=== PATIENT | female | born 1975 | race Caucasian/White ===

== ENCOUNTER 2017-04-01 12:51 | Emergency (ER) | payer MEDICARE, MEDICAID ==
[~2017-04-01] VITALS: Ht 162.6 cm; Wt 99.8 kg
[~2017-04-01 12:51] MED LIST: ALPR.5T PO; AMLO1CAP31 PO; BETA BLOCKER; CARV3.122 PO; ENAL20TA76 PO; ESCT10T PO; HYDR1TAB3 PO; HYDR25CA5 PO; LEXAPRO; MECL-124 PO; NAPR-243 PO; ONDAN4ODT PO; SULF1TAB38 PO; TRAM50TA2 PO; TRM50T PO
--- NOTE | 2017-04-01 13:18 | ED Lower Extremity ---
General Chief Complaint: Lower Extremity Stated Complaint: LT FOOT TOE INJ Nursing Triage Note: PT CO OF L 3RD TOE PAIN FOR APPROX 1 MONTH, UNKNOWN INJURY Nursing Sepsis Screen: No Definite Risk Source: patient Exam Limitations: no limitations History of Present Illness Time seen by provider: 13:05 Initial Comments This 42-year-old woman presents to emergency room with complaints of pain in the second left toe. She does not recall the injury. He was previously swollen but is no longer swollen. She states she has brain injury and sometimes does not remember events. She states she came to the emergency room at the encouragement of her because she continues to complain about the pain. She has not been taking any medication to treat the pain. Allergies and Home Medications Allergies Coded Allergies: No Known Drug Allergies (Unverified , 08/20/10) Home Medications Enalapril Maleate 20 Mg Tablet, 20 MG PO DAILY, (Reported) Escitalopram Oxalate 10 Mg Tablet, 1 EACH PO DAILY, (Reported) Trimethoprim/Sulfamethoxazole 1 Ea Tablet, 1 EA PO BID for 7 Days, Ref 0 Prescribed by: MARKEL GARCIA on 07/19/13 0130 Constitutional: no symptoms reported EENTM: no symptoms reported Respiratory: no symptoms reported Cardiovascular: no symptoms reported Gastrointestinal: no symptoms reported Genitourinary: no symptoms reported : No Musculoskeletal: see HPI Skin: no symptoms reported Psychiatric/Neurological: No Symptoms Reported Past Bswempk-Ioypue-Yldegm Hx Patient Social History Alcohol Use: Denies Use Recreational Drug Use: No Type Used: Cigarettes Recent Foreign Travel: No Contact w/Someone Who Travel: No Recent Infectious Disease Expo: No Recent Hopitalizations: Yes Immunizations Up To Date Tetanus Booster (TDap): Unknown Date of Pneumonia Vaccine: Apr 30, 2012 Surgeries HX Surgeries: Yes Surgeries: Tubal Ligation Respiratory Hx Respiratory Disorders: Yes (tobaccoism) Cardiovascular Hx Cardiac Disorders: Yes Cardiac Disorders: Hypertension Neurological Hx Neurological Disorders: Yes (BRAIN INJURY AT 8 YRS OLD) Neurological Disorders: Traumatic Brain Injury 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 System Hx 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 Disorders: No Genitourinary Hx Genitourinary Disorders: No Gastrointestinal Hx Gastrointestinal Disorders: No Musculoskeletal Hx Musculoskeletal Disorders: Yes Endocrine Hx Endocrine Disorders: Yes (DIET CONTROLLED DM) Endocrine Disorders: Diabetes, Non-Insulin dep HEENT HX ENT Disorders: No Cancer Hx Cancer: No Psychosocial Hx Psychiatric Problems: Yes (schizoaffective disorder) Behavioral Health Disorders: Anxiety, Depression Integumentary HX Skin/Integumentary Disorder: No Blood Transfusions Hx Blood Disorders: No Family Medical History Significant Family History: No Pertinent Family Hx Physical Exam Vital Signs Vital Sign - Last 12Hours 04/01/17 12:57 Temp 97.2 Pulse 108 Resp 18 B/P (MAP) 143/98 Pulse Ox 94 Capillary Refill : Less Than 3 Seconds General Appearance: WD/WN, no apparent distress HEENT: normal ENT inspection Legs: left leg non-tender, left leg normal inspection, left leg normal range of motion, left leg no evidence of injury Knees: left knee non-tender, left knee normal inspection, left knee normal range of motion, left knee no evidence of injury Ankles: left ankle non-tender, left ankle normal inspection, left ankle normal range of motion, left ankle no evidence of injury Feet: left foot non-tender, left foot normal inspection, left foot normal range of motion, left foot no evidence of injury, right foot other (mild pain with dorsiflexion of the second toe) 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 See report below: NAME: JOSHUA HERRON [facility] REC#: [id number] PT STATUS: REG ER : 1975 PHYSICIAN: SEBASTIÁN HARDEN MD ADMIT DATE: 04/01/17/ER Draft Date of Exam:04/01/17 TOE(S) EXAMINATION: Three views of the left toes. INDICATION: Left second toe pain. FINDINGS: There is no fracture, dislocation, or radiopaque foreign body. The joint alignment is satisfactory. IMPRESSION: Unremarkable exam. Dictated on workstation # [id number] Dict: 04/01/17 1321 Trans: 04/01/17 1331 [facility] [id number] Interpreted by: JAD NEGRON MD Departure Impression Impression: Primary Impression: Toe pain, left Disposition: 01 HOME, SELF-CARE Condition: Stable Departure-Patient Inst. Decision time for Depature: 13:41 Referrals: HONEY UMAÑA MD (PCP/Family) Primary Care Physician Patient Instructions: NO INSTRUCTIONS GIVEN Add. Discharge Instructions: Your x-ray showed no evidence of fractures. You may take ibuprofen up to 600 mg every 6 hours as needed for pain. Add Tylenol (acetaminophen) up to 1000 mg every 6 hours as needed for additional pain relief. If these measures do not improve your pain, follow-up with your doctor for further evaluation. Your pain could possibly be related to neuropathy caused by diabetes. All discharge instructions reviewed with patient and/or family. Voiced understanding. SEBASTIÁN HARDEN MD Apr 01, 2017 13:18
--- NOTE | 2017-04-01 13:31 | Diagnostic Imaging Report ---
EXAMINATION: Three views of the left toes. INDICATION: Left second toe pain. FINDINGS: There is no fracture, dislocation, or radiopaque foreign body. The joint alignment is satisfactory. IMPRESSION: Unremarkable exam. Dictated by: Dictated on workstation # [id number]
[2017-04-01 13:47] VITALS: BP 143/98
--- OUTSIDE RECORDS SUMMARY | 2017-04-03 14:51 | XMS REPORT ---
Author Author SKYE BELL [facility] eClinical[employer] Address Unknown Phone Unavailable Care Team Providers Care Compliance Consultant Name Role Phone SKYE BELL CP Unavailable Allergies No Known Allergies Problems Problem Type Condition Code Onset Dates Condition Status Problem Essential hypertension I10 Active Problem Type 2 diabetes mellitus with complication E11.8 Active Problem High risk sexual behavior Z72.51 Active Problem Tobacco abuse Z72.0 Active Problem Other abnormal glucose 790.29 Active Problem Depression, unspecified depression type F32.9 Active Problem History of traumatic brain injury Z87.820 Active Medications Medication Code System Code Instructions Start Date End Date Status Dosage Lopid [facility] [address]-19 600 MG Orally Twice a day May 04, 2016 1 tablet Atorvastatin Calcium [facility] [address]-72 10 MG Orally Once a day May 04, 2016 1 tablet Results No Known Results Summary Purpose eClinicalWorks Submission
--- OUTSIDE RECORDS SUMMARY | 2017-04-03 14:51 | XMS REPORT ---
Author Author MARY ANN VAZQUEZ Organization e[employer] Address Unknown Phone Unavailable Care Team Providers Care Support Services Rep Name Role Phone MARY ANN VAZQUEZ CP Unavailable Allergies, Adverse Reactions, Alerts Substance Reaction Event Type N.K.D.A. Info Not Available Non Drug Allergy Problems Problem Type Condition Code Onset Dates Condition Status Assessment Type 2 diabetes mellitus with complication E11.8 Active Assessment High risk sexual behavior Z72.51 Active Assessment Essential hypertension I10 Active Problem Essential hypertension I10 Active Problem Type 2 diabetes mellitus with complication E11.8 Active Problem High risk sexual behavior Z72.51 Active Problem Tobacco abuse Z72.0 Active Problem Other abnormal glucose 790.29 Active Problem Depression, unspecified depression type F32.9 Active Problem History of traumatic brain injury Z87.820 Active Assessment Tobacco abuse Z72.0 Active Assessment History of traumatic brain injury Z87.820 Active Assessment Depression, unspecified depression type F32.9 Active Medications Medication Code System Code Instructions Start Date End Date Status Dosage Lexapro [facility] [address]-93 10 MG Orally Once a day 1 tablet Enalapril Maleate [facility] [address]-04 10 MG Orally Once a day 1 tablet Procedures Procedure Coding System Code Date VENIPUNCT, ROUTINE* CPT-4 20488 Oct 18, 2015 Office Visit, Est Pt., Level 3 CPT-4 49656 Oct 18, 2015 No Charge CPT-4 38254 Oct 18, 2015 Vital Signs Date/Time: Oct 18, 2015 Temperature 97.2 F Weight 282.6 lbs Height 64 in BMI 48.50 Index Blood Pressure Diastolic 92 mmHg Blood Pressure Systolic 126 mmHg Cardiac Monitoring Heart Rate 88 bpm Results Name Result Date Reference Range Unit Abnormality Flag ROUTINE VENIPUNCTURE Summary Purpose eClinicalWorks Submission
--- OUTSIDE RECORDS SUMMARY | 2017-04-03 14:51 | XMS REPORT ---
Author SKYE [facility] eClinicalWorks Address Unknown Phone Unavailable Care Team Providers Care Scientist Name Role Phone SKYE BELL CP Unavailable Allergies, Adverse Reactions, Alerts Substance Reaction Event Type N.K.D.A. Info Not Available Non Drug Allergy Problems Problem Type Condition Code Onset Dates Condition Status Assessment Type 2 diabetes mellitus with complication E11.8 Active Problem Other abnormal glucose 790.29 Active Assessment Carbuncle L02.93 Active Problem High risk sexual behavior Z72.51 Active Problem Essential hypertension I10 Active Problem Mixed hyperlipidemia E78.2 Active Problem History of traumatic brain injury Z87.820 Active Problem Tobacco abuse Z72.0 Active Problem Type 2 diabetes mellitus with complication E11.8 Active Problem Depression, unspecified depression type F32.9 Active Assessment Mixed hyperlipidemia E78.2 Active Assessment Essential hypertension I10 Active Assessment History of traumatic brain injury Z87.820 Active Assessment Depression, unspecified depression type F32.9 Active Medications Medication Code System Code Instructions Start Date End Date Status Dosage Test strips NDC 0 1 test fasting daily then 2 hours after mals May 01, 2016 as directed Lopid [facility] [address]-45 600 MG Orally Twice a day May 04, 2016 1 tablet Nesina [facility] [address]-66 6.25 MG Orally Once a day 1 tablet Enalapril Maleate [facility] [address]-64 10 MG Orally Once a day 1 tablet Blood Glucose Meter NDC 0 1 subcutaneously 2 times a day May 01, 2016 test blood sugar Atorvastatin Calcium [facility] [address]-38 10 MG Orally Once a day May 04, 2016 1 tablet Bactrim DS [facility] [address]-61 800-160 MG Orally Twice a day May 15, 2016 May 25, 2016 1 tablet MetFORMIN HCl ER [facility] [address]-57 500 MG Orally Once a day May 01, 2016 2 tablet with evening meal Lexapro [facility] [address]-87 10 MG Orally Once a day 1 tablet Procedures Procedure Coding System Code Date Office Visit, Est Pt., Level 4 CPT-4 10431 May 22, 2016 [facility] VISIT ESTABLISHED PATIENT CPT-4 G0467 May 22, 2016 Vital Signs Date/Time: May 22, 2016 Cardiac Monitoring Heart Rate 92 bpm Weight 220.7 lbs Height 64 in BMI 37.88 Index Blood Pressure Diastolic 92 mmHg Blood Pressure Systolic 134 mmHg Results No Known Results Summary Purpose eClinicalWorks Submission
== END 2017-04-01 13:46 | disposition home or self-care (01) ==
LOC: EDUNIT# 12:51 → ER 12:54
DX: M79.675 Pain in left toe(s) (principal); I10 Essential (primary) hypertension; E11.9 Type 2 diabetes mellitus without complications; F25.9 Schizoaffective disorder, unspecified; F41.9 Anxiety disorder, unspecified; F17.210 Nicotine dependence, cigarettes, uncomplicated; F32.9 Major depressive disorder, single episode, unspecified; Z87.820 Personal history of traumatic brain injury
CPT/HCPCS: 73660; 99283

== ENCOUNTER 2020-09-14 13:56 | Emergency (ER) | payer MEDICAID ==
[~2020-09-14] VITALS: Ht 162 cm; Wt 106.0 kg
[2020-09-14] MEDS ORDERED: ANTACID SUSP 30 ML UDC (MYLANTA) PO ONE (14:15)
[2020-09-14] MEDS ORDERED: LIDOCAINE 2% VISCOUS 15 ML UDC PO ONE (14:15)
[2020-09-14] MEDS ORDERED: ONDANSETRON 4 MG/2 ML (SDV) Z0FRAN IVP ONE (14:15)
[2020-09-14 14:19] LABS: BASOPHILS # (AUTO) 0.1 10^3/uL (0.0-0.1); BASOPHILS % (AUTO) 1 % (0-10); EOSINOPHILS # (AUTO) 0.3 10^3/uL (0.0-0.3); EOSINOPHILS % (AUTO) 4 % (0-10); HEMATOCRIT 42 % (35-52); HEMOGLOBIN 13.9 g/dL (11.5-16.0); LYMPHOCYTES # (AUTO) 3.1 10^3/uL (1.0-4.0); LYMPHOCYTES % (AUTO) 35 % (12-44); MEAN CORPUSCULAR HEMOGLOBIN 31 pg (25-34); MEAN CORPUSCULAR HGB CONC 34 g/dL (32-36); MEAN CORPUSCULAR VOLUME 92 fL (80-99); MEAN PLATELET VOLUME 9.2 fL (9.0-12.2); MONOCYTES # (AUTO) 0.7 10^3/uL (0.0-1.0); MONOCYTES % (AUTO) 8 % (0-12); NEUTROPHILS # (AUTO) 4.5 10^3/uL (1.8-7.8); NEUTROPHILS % (AUTO) 52 % (42-75); PLATELET COUNT 271 10^3/uL (130-400); WHITE BLOOD COUNT 8.7 10^3/uL (4.3-11.0)
--- NOTE | 2020-09-14 14:27 | Diagnostic Imaging Report ---
Indication: Anterior chest pain. Findings: The lungs are clear. There is no failure, effusion or pneumothorax. Impression: No acute-appearing abnormality. Dictated by: Dictated on workstation # [id number]
--- NOTE | 2020-09-14 14:30 | ED Chest Pain ---
General Chief Complaint: Chest Pain Stated Complaint: CP Nursing Triage Note: PT TO RM 7 BY [facility] WITH CC OF STABBING CHEST PAIN WHILE SITTING IN CAR WAITING FOR AN EXERCISE CLASS. NO CP ON ARRIVAL TO ER, HX OF ANXIETY. NEG COVID SWAB FROM [facility]. Nursing Sepsis Screen: No Definite Risk Source: patient Exam Limitations: no limitations History of Present Illness Date Seen by Provider: Sep 14, 2020 Time Seen by Provider: 14:05 Initial Comments This 45-year-old woman presents to the emergency room from the [facility] walk-in clinic via EMS with complaints of central chest pain. The pain started around 12: 30 while she was in the parking lot still sitting in her vehicle. The pain was sharp and stabbing just left of the sternum. She waited in the car until the pain subsided. She then came in and checked into the walk-in clinic. She denies any associated symptoms. She has no known cardiac history. [facility] obtained an EKG and administered aspirin. EKG showed no ischemia. Patient was then sent to the emergency room via EMS. Rapid COVID-19 screen was negative at [facility]. Allergies and Home Medications Allergies Coded Allergies: No Known Drug Allergies (Unverified , 08/20/10) Home Medications Enalapril Maleate 20 Mg Tablet, 20 MG PO DAILY, (Reported) Escitalopram Oxalate 10 Mg Tablet, 1 EACH PO DAILY, (Reported) Omeprazole 20 Mg Capsule.dr, 20 MG PO DAILY Prescribed by: SEBASTIÁN BUTLER on 09/14/20 1705 Trimethoprim/Sulfamethoxazole 1 Ea Tablet, 1 EA PO BID Prescribed by: MARKEL GARCIA on 07/19/13 0130 Patient Home Medication List Home Medication List Reviewed: Yes Review of Systems Review of Systems Constitutional: no symptoms reported EENTM: No Symptoms Reported Respiratory: No Symptoms Reported Cardiovascular: See HPI Gastrointestinal: No Symptoms Reported, Other ("Heartburn") Genitourinary: No Symptoms Reported Musculoskeletal: no symptoms reported Skin: no symptoms reported Psychiatric/Neurological: No Symptoms Reported Endocrine: No Symptoms Reported Hematologic/Lymphatic: No Symptoms Reported Past Kvberwi-Xtayxv-Cdjyvu Hx Past Med/Social Hx: Reviewed Nursing Past Med/Soc Hx Patient Social History Alcohol Use: Denies Use Recreational Drug Use: No (HX OF THC YEARS AGO) Smoking Status: Former Smoker Type Used: Cigarettes Former Smoker, Quit: Oct 31, 2018 Recent Foreign Travel: No Contact w/Someone Who Travel: No Recent Infectious Disease Expo: No Recent Hopitalizations: No Physical Abuse: No Sexual Abuse: No Mistreated: No Fear: No Immunizations Up To Date Tetanus Booster (TDap): Unknown Date of Pneumonia Vaccine: Apr 30, 2012 Past Medical History Surgeries: Yes (TUBAL LIGATION, EAR SURGERY, ABSCESS LANCED TO LEFT LEG) Tubal Ligation Respiratory: Yes (HAS AN INHALER) Cardiac: Yes Hypertension Neurological: Yes (BRAIN INJURY AT 8 YRS OLD) Traumatic Brain Injury : No 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 oz. 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 Norm as Tested Skin: Normal Color, Warm/Dry Progress/Results/Core Measures Results/Orders Lab Results Laboratory Tests Test 09/14/20 14:05 09/14/20 16:40 Range/Units White Blood Count 8.7 4.3-11.0 10^3/uL Red Blood Count 4.51 3.80-5.11 10^6/uL Hemoglobin 13.9 11.5-16.0 g/dL Hematocrit 42 35-52 % Mean Corpuscular Volume 92 80-99 fL Mean Corpuscular Hemoglobin 31 25-34 pg Mean Corpuscular Hemoglobin Concent 34 32-36 g/dL Red Cell Distribution Width 12.7 10.0-14.5 % Platelet Count 271 130-400 10^3/uL Mean Platelet Volume 9.2 9.0-12.2 fL Immature Granulocyte % (Auto) 1 % Neutrophils (%) (Auto) 52 42-75 % Lymphocytes (%) (Auto) 35 12-44 % Monocytes (%) (Auto) 8 0-12 % Eosinophils (%) (Auto) 4 0-10 % Basophils (%) (Auto) 1 0-10 % Neutrophils # (Auto) 4.5 1.8-7.8 10^3/uL Lymphocytes # (Auto) 3.1 1.0-4.0 10^3/uL Monocytes # (Auto) 0.7 0.0-1.0 10^3/uL Eosinophils # (Auto) 0.3 0.0-0.3 10^3/uL Basophils # (Auto) 0.1 0.0-0.1 10^3/uL Immature Granulocyte # (Auto) 0.1 0.0-0.1 10^3/uL Prothrombin Time 13.4 12.2-14.7 SEC INR Comment 1.0 0.8-1.4 Activated Partial Thromboplast Time 25 24-35 SEC Sodium Level 139 135-145 MMOL/L Potassium Level 3.9 3.6-5.0 MMOL/L Chloride Level 102 98-107 MMOL/L Carbon Dioxide Level 26 21-32 MMOL/L Anion Gap 11 5-14 MMOL/L Blood Urea Nitrogen 11 7-18 MG/DL Creatinine 0.72 0.60-1.30 MG/DL Estimat Glomerular Filtration Rate > 60 BUN/Creatinine Ratio 15 Glucose Level 288 H 70-105 MG/DL Calcium Level 9.1 8.5-10.1 MG/DL Corrected Calcium 9.2 8.5-10.1 MG/DL Magnesium Level 1.3 L 1.6-2.4 MG/DL Total Bilirubin 0.2 0.1-1.0 MG/DL Aspartate Amino Transf (AST/SGOT) 13 5-34 U/L Alanine Aminotransferase (ALT/SGPT) 21 0-55 U/L Alkaline Phosphatase 78 40-136 U/L Myoglobin 19.1 10.0-92.0 NG/ML Troponin I < 0.028 < 0.028 <0.028 NG/ML Total Protein 6.9 6.4-8.2 GM/DL Albumin 3.9 3.2-4.5 GM/DL Lipase 47 8-78 U/L My Orders Orders - SEBASTIÁN HARDEN MD Cbc With Automated Diff (09/14/20 14:10) Magnesium (09/14/20 14:10) Chest 1 View, Ap/Pa Only (09/14/20 14:10) Ekg Tracing (09/14/20 14:10) Comprehensive Metabolic Panel (09/14/20 14:10) Myoglobin Serum (09/14/20 14:10) Protime With Inr (09/14/20 14:10) Partial Thromboplastin Time (09/14/20 14:10) O2 (09/14/20 14:10) Monitor-Rhythm Ecg Trace Only (09/14/20 14:10) Lipid Panel (09/15/20 06:00) Ed Iv/Invasive Line Start (09/14/20 14:10) Lipase (09/14/20 14:10) Troponin I (09/14/20 14:10) Ondansetron Injection (Zofran Injectio (09/14/20 14:15) Lidocaine 2% Viscous 15 Ml (Xylocaine Vi (09/14/20 14:15) Antacid Suspension (Mylanta Suspension (09/14/20 14:15) Magnesium 1 Gm/100 Ml Ivpb (Magnesium Stone (09/14/20 15:00) Troponin I (09/14/20 16:30) Medications Given in ED Current Medications Medications Dose Ordered Sig/Stephie Route Start Time Stop Time Status Last Admin Dose Admin Al Hydrox/Mg Hydrox/Simethicone 30 ml ONCE ONCE PO 09/14/20 14:15 09/14/20 14:16 DC 09/14/20 14:28 30 ML Lidocaine HCl 15 ml ONCE ONCE PO 09/14/20 14:15 09/14/20 14:16 DC 09/14/20 14:28 15 ML Magnesium Sulfate/ Dextrose 100 ml @ 100 mls/hr ONCE ONCE IV 09/14/20 15:00 09/14/20 15:59 DC 09/14/20 15:18 100 MLS/HR Ondansetron HCl 4 mg ONCE ONCE IVP 09/14/20 14:15 09/14/20 14:16 DC 09/14/20 14:28 4 MG Vital Signs/I&O 09/14/20 14:08 Temp 36.2 Pulse 95 Resp 20 B/P (MAP) 146/90 (108) O2 Delivery Room Air Blood Pressure Mean: 108 Progress Progress Note #1: Time: 14:32 Progress Note Patient was seen and examined upon arrival. She was found to have some epigastric tenderness. A GI cocktail is being administered as a diagnostic and therapeutic tool. She is denying chest pain at this time. Progress Note #2: Time: 17:21 Progress Note GI cocktail did improve her epigastric tenderness. Repeat troponin was negative and chest pain did not return. Patient was discharged outpatient follow-up. Initial ECG Impression Date: Sep 14, 2020 Initial ECG Impression Time: 14:02 Initial ECG Rate: 85 Initial ECG Rhythm: Normal Sinus Initial ECG Intervals: Normal Initial ECG Impression: Normal Comment Normal sinus rhythm with no ST elevation or depression. No abnormal intervals or axis deviation. Diagnostic Imaging Diagonstic Imaging: Xray Plain Films/CT/US/NM/MRI: chest Comments Chest x-ray viewed by me and report reviewed. See report below: NAME: JOSHUA HERRON [facility] REC#: [id number] PT STATUS: REG ER : 1975 PHYSICIAN: SEBASTIÁN HARDEN MD ADMIT DATE: 09/14/20/ER Draft Date of Exam:09/14/20 CHEST 1 VIEW, AP/PA ONLY Indication: Anterior chest pain. Findings: The lungs are clear. There is no failure, effusion or pneumothorax. Impression: No acute-appearing abnormality. Dictated on workstation # [id number] Dict: 09/14/20 3355 Departure Impression Primary Impression: Atypical chest pain Additional Impression: Epigastric pain Disposition: 01 HOME, SELF-CARE Condition: Improved Departure-Patient Inst. Decision time for Depature: 17:15 Referrals: NO,LOCAL PHYSICIAN (PCP/Family) Primary Care Physician Patient Instructions: Chest Pain, Acid Reflux (Gastroesophageal Reflux Disease) During Add. Discharge Instructions: Follow-up with your primary care provider soon as possible. It is possible your chest pain and upper abdominal pain could be caused by acid reflux or gastritis. Take an antacid medication for the next month as prescribed. Call or return to care if you have worsening symptoms or other questions or co ncerns. All discharge instructions reviewed with patient and/or family. Voiced understanding. Scripts Omeprazole (Omeprazole) 20 Mg Capsule. 20 MG PO DAILY, #30 CAP Prov: SEBASTIÁN HARDEN MD 09/14/20 Copy Copies To 1: CINTHIA HDEZ JOSHUA T MD Sep 14, 2020 14:30
[2020-09-14 14:32] LABS: PROTHROMBIN TIME PATIENT 13.4 SEC (12.2-14.7)
[2020-09-14 14:33] LABS: ALBUMIN 3.9 GM/DL (3.2-4.5); CHLORIDE 102 MMOL/L (98-107); POTASSIUM 3.9 MMOL/L (3.6-5.0); SODIUM 139 MMOL/L (135-145)
[2020-09-14 14:34] LABS: CALCIUM 9.1 MG/DL (8.5-10.1)
[2020-09-14 14:35] LABS: GLUCOSE 288 MG/DL (70-105); TOTAL PROTEIN 6.9 GM/DL (6.4-8.2)
[2020-09-14 14:36] LABS: CARBON DIOXIDE 26 MMOL/L (21-32)
[2020-09-14 14:37] LABS: BILIRUBIN,TOTAL 0.2 MG/DL (0.1-1.0)
[2020-09-14 14:39] LABS: ALKALINE PHOSPHATASE 78 U/L (40-136); CREATININE SERUM 0.72 MG/DL (0.60-1.30); GFR ESTIMATED > 60
[2020-09-14 14:40] LABS: BUN/CREATININE RATIO 15
[2020-09-14 14:42] LABS: ALANINE AMINOTRANSFERASE 21 U/L (0-55); MAGNESIUM 1.3 MG/DL (1.6-2.4)
[2020-09-14 14:43] LABS: LIPASE 47 U/L (8-78)
[2020-09-14] MEDS ORDERED: MAGNESIUM 1 GM/100 ML IVPB 100 ML IV ONE (15:00)
[2020-09-14] MEDS ORDERED: OMEP20CA18 PO (17:05)
[2020-09-14 17:26] VITALS: BP 130/88
== END 2020-09-14 17:26 | disposition home or self-care (01) ==
LOC: EDUNIT# 13:56 → ER 14:05
DX: R07.89 Other chest pain (principal); R10.13 Epigastric pain; F32.9 Major depressive disorder, single episode, unspecified; E66.9 Obesity, unspecified; I10 Essential (primary) hypertension; F41.9 Anxiety disorder, unspecified; Z87.820 Personal history of traumatic brain injury; Z87.891 Personal history of nicotine dependence; Z68.41 Body mass index [BMI] 40.0-44.9, adult; Z20.828 Contact with and (suspected) exposure to other viral communicable diseases
CPT/HCPCS: 36415; 71045; 80053; 83690; 83735; 83874; 84484; 85025; 85610; 85730; 93005; 93041

== ENCOUNTER → 2021-08-15 | Outpatient (CLI) | payer MEDICAID, OTHER ==
[~2021-08-15] MED LIST changes: +OMEP20CA18 PO
--- NOTE | 2021-08-15 11:51 | Diagnostic Imaging Report ---
HISTORY: Back pain TECHNIQUE: Supine and upright views of the thoracic and lumbar spine COMPARISON: None FINDINGS: There is mild right convex curvature of the midthoracic spine measuring 8 degrees centered at T5 on the upright view but no high-grade scoliotic curvature is identified. No height loss is seen on these views. No focal osseous lesions are identified. IMPRESSION: 1. Minimal right convex curvature of the upright midthoracic spine. Dictated by: Dictated on workstation # [id number]
== END ==
LOC: RAD 10:21
PROVIDERS: ATTEND Anesthesiology Pain Medicine
DX: Z02.71 Encounter for disability determination (principal); M43.8X4 Other specified deforming dorsopathies, thoracic region
CPT/HCPCS: 72082

== ENCOUNTER → 2022-04-05 | Outpatient (CLI) | payer MEDICAID ==
[~2022-04-05] MED LIST changes: +CATHETER FLUSH 10 ML SYR IVP PRN
[2022-04-05 09:13] VITALS: BP 128/83
--- NOTE | 2022-04-05 12:33 | NUCLEAR STRESS TEST ---
TREADMILL NUCLEAR STRESS TEST Date of procedure: 04/05/2022. Primary care provider: Nguyen Vargas MD. Admitting physician: Nguyen Vargas MD. INDICATION: Atypical chest pain and abnormal electrocardiogram. BASELINE ELECTROCARDIOGRAM: Sinus tachycardia at 102 bpm with possible old septal myocardial infarction. STRESS TEST PROCEDURE: The patient was exercised for a total of 3 minutes and 30 seconds of the standard Jason protocol achieving a maximum MET level of 4.7. The resting heart rate was 102 bpm and the peak heart rate was 162 bpm, which represents 92% of the maximum predicted heart rate. The resting blood pressure was 113/79 mmHg and the peak blood pressure was 199/101 mmHg. This represents a normal heart rate and a hypertensive blood pressure response to exercise. The test was stopped due to fatigue. There was no chest discomfort during the test. There were no arrhythmias during the test. There were no significant stress induced electrocardiogram changes. The patient exhibited poor exercise capacity for age. NUCLEAR PROCEDURE: The patient was administered 10.9 mCi of intravenous technetium 99m Tetrofosmin at rest for the rest images. The patient was subsequently administered 31.3 mCi of intravenous technetium 99 M Tetrofosmin at peak stress for the stress images. Following an appropriate wait after each injection, imaging was obtained. The images were subsequently processed and reformatted in the usual views. Gated imaging was obtained. The image quality was adequate with a mild degree of gastrointestinal and breast attenuation artifact. CT attenuation correction was used as a adjunct to standard imaging. Both the corrected and uncorrected images were reviewed for interpretation. NUCLEAR RESULTS: There was normal myocardial perfusion in all segments without evidence of infarction or ischemia. There was normal left ventricular chamber size with an end-diastolic volume of 30 mL and an end-systolic volume of 8 mL. There was no evidence of transient ischemic dilatation. The TID ratio was 1.12. There was normal wall motion in all segments with a calculated ejection fraction of 73%. IMPRESSION: 1. Normal heart rate and a hypertensive blood pressure response to exercise. 2. There was no exercise-induced chest discomfort, arrhythmias, or electrocardiogram changes during the test. 3. The patient exhibited poor exercise capacity for age at 3 minutes and 30 seconds of the Jason protocol. 4. There was normal myocardial perfusion in all segments without evidence of infarction or ischemia. 5. There was normal wall motion in all segments with a calculated ejection fraction of 73%. Certain portions of this document may have been dictated utilizing voice recognition technology. Inherent to this technology, typographical and grammatical errors may exist. As much as I am diligent to identify and correct these mistakes, some errors may remain in the document. KAYLA GASPAR JR, MD Apr 05, 2022 12:33
== END ==
LOC: CARD 08:30
PROVIDERS: ATTEND Pediatrics
DX: R07.89 Other chest pain (principal); R94.31 Abnormal electrocardiogram [ECG] [EKG]
CPT/HCPCS: 78452; 93017; A9502

== ENCOUNTER 2022-06-26 17:51 | Emergency (ER) | payer MEDICAID, MEDICARE ==
[~2022-06-26] VITALS: Ht 162.5 cm; Wt 105.2 kg
[~2022-06-26 17:51] MED LIST changes: -CATHETER FLUSH 10 ML SYR IVP PRN
[2022-06-26 18:05] LABS: BASOPHILS % (AUTO) 1 % (0-10); EOSINOPHILS # (AUTO) 0.1 10^3/uL (0.0-0.3); EOSINOPHILS % (AUTO) 1 % (0-10); HEMATOCRIT 41 % (35-52); HEMOGLOBIN 13.8 g/dL (11.5-16.0); LYMPHOCYTES # (AUTO) 2.3 10^3/uL (1.0-4.0); LYMPHOCYTES % (AUTO) 33 % (12-44); MEAN CORPUSCULAR HEMOGLOBIN 30 pg (25-34); MEAN CORPUSCULAR HGB CONC 34 g/dL (32-36); MEAN CORPUSCULAR VOLUME 89 fL (80-99); MEAN PLATELET VOLUME 9.4 fL (9.0-12.2); MONOCYTES # (AUTO) 0.6 10^3/uL (0.0-1.0); MONOCYTES % (AUTO) 9 % (0-12); NEUTROPHILS # (AUTO) 3.9 10^3/uL (1.8-7.8); NEUTROPHILS % (AUTO) 57 % (42-75); PLATELET COUNT 285 10^3/uL (130-400); WHITE BLOOD COUNT 6.9 10^3/uL (4.3-11.0)
[2022-06-26 18:18] LABS: ALBUMIN 3.9 GM/DL (3.2-4.5)
--- NOTE | 2022-06-26 18:19 | Diagnostic Imaging Report ---
PATIENT HISTORY: Chest pain. TECHNIQUE: Single frontal view of the chest. COMPARISON: 09/14/2020 FINDINGS: The lung volumes are normal. No focal consolidation is seen. No large pleural effusion or pneumothorax is seen. The cardiomediastinal silhouette is normal in size and contour. No acute osseous abnormality is seen. IMPRESSION: No acute pulmonary abnormality seen. Dictated by: Dictated on workstation # [id number]
[2022-06-26 18:20] LABS: CALCIUM 9.2 MG/DL (8.5-10.1)
[2022-06-26 18:21] LABS: PROTHROMBIN TIME PATIENT 13.9 SEC (12.2-14.7); TOTAL PROTEIN 6.6 GM/DL (6.4-8.2)
[2022-06-26 18:22] LABS: BILIRUBIN,TOTAL 0.2 MG/DL (0.1-1.0)
[2022-06-26 18:24] LABS: CREATININE SERUM 0.7 MG/DL (0.60-1.30)
[2022-06-26 18:27] LABS: MAGNESIUM 1.4 MG/DL (1.6-2.4)
--- NOTE | 2022-06-26 18:40 | ED General ---
General Chief Complaint: Chest Pain Stated Complaint: CHEST PAIN, DIZZINESS Nursing Triage Note: PT BROUGHT IN BY [facility] FROM [facility] WITH COMPLAINT OF CP AND DIZZINESS. STATES SHE HAS HAD THE DIZZINESS FOR A WHILE AND CHEST HEAVINESS STARTED THIS MORNING. Source of Information: Patient Exam Limitations: No Limitations History of Present Illness Date Seen by Provider: Jun 26, 2022 Time Seen by Provider: 17:55 Initial Comments Patient to the ER by EMS from [facility] with chief complaint of racing heart feeling like her heart was beating out of her chest and dizziness. She says when she gets up out of bed for the past few days as well as when she changes positions abruptly causes a wave of dizziness which she describes as the room spinning around like she is going to fall over but not pass out. She had this happen a couple times today. She does not have a history of heart disease but her mom had early onset coronary disease and she does have diabetes. She does not have known hypertension, hyperlipidemia nor does she smoke cigarettes. She denies recreational drugs or alcohol. She denies a history of vertigo. She had COVID-19 about 2 weeks ago and was having some off-and-on pain and pressure in her right ear. Allergies and Home Medications Allergies Coded Allergies: dapagliflozin (Verified Allergy, Unknown, 06/26/22) duloxetine (Verified Allergy, Unknown, 06/26/22) escitalopram (Verified Allergy, Unknown, 06/26/22) paroxetine (Verified Allergy, Unknown, 06/26/22) peanut (Verified Allergy, Unknown, 06/26/22) pneumococcal vaccine (Verified Allergy, Unknown, 06/26/22) Patient Home Medication List Home Medication List Reviewed: Yes Enalapril Maleate (Vasotec) 20 Mg Tablet, 20 MG PO DAILY, (Reported) Entered as Reported by: HERSON HA on 02/27/12 0939 Escitalopram Oxalate (Lexapro) 10 Mg Tablet, 1 EACH PO DAILY, (Reported) Entered as Reported by: GINNA LABOY on 07/19/13 0020 Fluticasone Propionate (Allergy Relief) 50 Mcg/Actuation Imperial.susp, 15.8 ML NS BID Prescribed by: PHILL DOBBINS on 06/26/22 1904 Meclizine HCl (Meclizine HCl) 25 Mg Tablet, 25 MG PO Q6H PRN for VERTIGO Prescribed by: PHILL DOBBINS on 06/26/22 1904 Omeprazole (Omeprazole) 20 Mg Capsule.dr, 20 MG PO DAILY Prescribed by: SEBASTIÁN BUTLER on 09/14/20 1705 Trimethoprim/Sulfamethoxazole (Bactrim Ds) 1 Ea Tablet, 1 EA PO BID Prescribed by: MARKEL GARCIA on 07/19/13 0130 Review of Systems Review of Systems Constitutional: No chills, No diaphoresis EENTM: No ear discharge, No ear pain Respiratory: No cough, No short of breath Cardiovascular: No chest pain, No edema Gastrointestinal: No abdominal pain, No constipation, No diarrhea, No nausea Genitourinary: No discharge, No dysuria Musculoskeletal: No back pain, No joint pain All Other Systems Reviewed Negative Unless Noted: Yes Past Rqendva-Szdunj-Viriql Hx Patient Social History Tobacco Use?: No Use of E-Cig and/or Vaping dev: No Substance use?: No Alcohol Use?: No Pt feels they are or have been: No Immunizations Up To Date Tetanus Booster (TDap): Unknown Past Medical History Surgeries: Yes (TUBAL LIGATION, EAR SURGERY, ABSCESS LANCED TO LEFT LEG) Tubal Ligation Respiratory: Yes (HAS AN INHALER) Cardiac: Yes Hypertension Neurological: Yes (BRAIN INJURY AT 8 YRS OLD) Traumatic Brain Injury 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 oz. 99.644355zt; 39.00 BMI Method:Stated General Appearance: No Apparent Distress, Obese Eyes: Bilateral Eye Normal Inspection, Bilateral Eye PERRL, Bilateral Eye EOMI HEENT: PERRL/EOMI, TMs Normal, Normal ENT Inspection, Pharynx Normal, Moist Mucous Membranes Neck: Full Range of Motion, Normal Inspection, Non Tender Respiratory: Lungs Clear, Normal Breath Sounds, No Accessory Muscle Use, No Respiratory Distress Cardiovascular: Regular Rate, Rhythm, No Edema, No Gallop, Normal Peripheral Pulses Gastrointestinal: Normal Bowel Sounds, Non Tender, Soft Extremity: Normal Capillary Refill, Normal Inspection, No Pedal Edema Neurologic/Psychiatric: Alert, Oriented x3, No Motor/Sensory Deficits Progress/Results/Core Measures Suspected Sepsis SIRS Temperature: Pulse: 105 Respiratory Rate: 20 Laboratory Tests 06/26/22 17:57: White Blood Count 6.9 Blood Pressure 159 /99 Mean: 119 Laboratory Tests 06/26/22 17:57: Creatinine 0.70, INR Comment 1.0, Platelet Count 285, Total Bilirubin 0.2 Results/Orders Lab Results Laboratory Tests Test 06/26/22 17:57 Range/Units White Blood Count 6.9 4.3-11.0 10^3/uL Red Blood Count 4.56 3.80-5.11 10^6/uL Hemoglobin 13.8 11.5-16.0 g/dL Hematocrit 41 35-52 % Mean Corpuscular Volume 89 80-99 fL Mean Corpuscular Hemoglobin 30 25-34 pg Mean Corpuscular Hemoglobin Concent 34 32-36 g/dL Red Cell Distribution Width 12.8 10.0-14.5 % Platelet Count 285 130-400 10^3/uL Mean Platelet Volume 9.4 9.0-12.2 fL Immature Granulocyte % (Auto) 0 % Neutrophils (%) (Auto) 57 42-75 % Lymphocytes (%) (Auto) 33 12-44 % Monocytes (%) (Auto) 9 0-12 % Eosinophils (%) (Auto) 1 0-10 % Basophils (%) (Auto) 1 0-10 % Neutrophils # (Auto) 3.9 1.8-7.8 10^3/uL Lymphocytes # (Auto) 2.3 1.0-4.0 10^3/uL Monocytes # (Auto) 0.6 0.0-1.0 10^3/uL Eosinophils # (Auto) 0.1 0.0-0.3 10^3/uL Basophils # (Auto) 0.0 0.0-0.1 10^3/uL Immature Granulocyte # (Auto) 0.0 0.0-0.1 10^3/uL Prothrombin Time 13.9 12.2-14.7 SEC INR Comment 1.0 0.8-1.4 Activated Partial Thromboplast Time 25 24-35 SEC Sodium Level 142 135-145 MMOL/L Potassium Level 4.0 3.6-5.0 MMOL/L Chloride Level 104 98-107 MMOL/L Carbon Dioxide Level 21 21-32 MMOL/L Anion Gap 17 H 5-14 MMOL/L Blood Urea Nitrogen 11 7-18 MG/DL Creatinine 0.70 0.60-1.30 MG/DL Estimat Glomerular Filtration Rate 109 BUN/Creatinine Ratio 16 Glucose Level 323 H 70-105 MG/DL Calcium Level 9.2 8.5-10.1 MG/DL Corrected Calcium 9.3 8.5-10.1 MG/DL Magnesium Level 1.4 L 1.6-2.4 MG/DL Total Bilirubin 0.2 0.1-1.0 MG/DL Aspartate Amino Transf (AST/SGOT) 16 5-34 U/L Alanine Aminotransferase (ALT/SGPT) 25 0-55 U/L Alkaline Phosphatase 81 40-136 U/L Myoglobin 21.4 10.0-92.0 NG/ML Troponin I < 0.028 <0.028 NG/ML Total Protein 6.6 6.4-8.2 GM/DL Albumin 3.9 3.2-4.5 GM/DL My Orders Orders - PHILL DOBBINS Ed Iv/Invasive Line Start (06/26/22 18:38) Ns Iv 1000 Ml (Sodium Chloride 0.9%) (06/26/22 18:45) Insulin Determir (Per Unit) (Levemir (Pe (06/26/22 18:45) Vital Signs/I&O 06/26/22 17:54 Pulse 105 Resp 20 B/P (MAP) 159/99 (119) O2 Delivery Room Air Capillary Refill : Less Than 3 Seconds Blood Pressure Mean: 119 Progress Note : Time: 18:56 Progress Note Plan to give her a liter of fluids IV to help with her tachycardia. We discussed José Miguel's maneuvers as well as we will put her on a nasal steroid for possible labyrinthitis since she recently had an infection of the virus. Finally we will provide her with some meclizine. ECG Initial ECG Impression Date: Jun 26, 2022 Initial ECG Impression Time: 18:00 Initial ECG Rate: 106 Initial ECG Rhythm: S.Tach Initial ECG Intervals: Normal Initial ECG Impression: Normal Initial ECG Comparisson: No Previous ECG Available Comment Sinus tachycardia without clinically relevant ST elevation or depression. Diagnostic Imaging Diagonstic Imaging: Xray Plain Films/CT/US/NM/MRI: chest Comments [facility] [place], [place] NAME: JOSHUA [facility]ON [facility] REC#: [id number] PT STATUS: REG ER : 1975 PHYSICIAN: SEBASTIÁN HARDEN MD ADMIT DATE: 06/26/22/ER Draft Date of Exam:06/26/22 CHEST 1 VIEW, AP/PA ONLY PATIENT HISTORY: Chest pain. TECHNIQUE: Single frontal view of the chest. COMPARISON: 09/14/2020 FINDINGS: The lung volumes are normal. No focal consolidation is seen. No large pleural effusion or pneumothorax is seen. The cardiomediastinal silhouette is normal in size and contour. No acute osseous abnormality is seen. IMPRESSION: No acute pulmonary abnormality seen. Dictated on workstation # [id number] Dict: 06/26/221817 Trans: 06/26/221817 CV [id number] Interpreted by: EMORY JAMA MD Electronically signed by: Reviewed: Reviewed by Me Departure Impression Primary Impression: Vertigo Additional Impression: Labyrinthitis of right ear Disposition: 01 HOME, SELF-CARE Condition: Stable Departure-Patient Inst. Decision time for Depature: 18:59 Referrals: NO,LOCAL PHYSICIAN (PCP/Family) Primary Care Physician Patient Instructions: Labyrinthitis, Vertigo (a Type of Dizziness) (DC) Add. Discharge Instructions: You are having vertigo which is the sensation that the room is spinning around you. This can be caused by your recent viral infection causing pressure on your middle ear as you are experiencing some pressure and pain in your right ear. Use a nasal steroid twice a day to help relieve the pressure in your middle ear. Alternatively this can be caused by a microscopic otolith stone breaking loose in your middle ear. When the stones move such as by a sudden change in position or turning of your head they can cause the sensation of movement or vertigo. You can perform the José Miguel's maneuvers as outlined in the handout every time you feel vertigo. You may also take 1 tablet of meclizine every 6 hours to help bring the sensation of vertigo down. Finally fluticasone twice daily up each nostril for 1 to 2 weeks should help open up the middle ear via the eustachian tube and allow your pressure to relie f. Antihistamine such as Zyrtec or Claritin can be helpful to relieve the itching sensations. All discharge instructions reviewed with patient and/or family. Voiced understanding. Scripts Fluticasone Propionate (Allergy Relief) 50 Mcg/Actuation Imperial.susp 15.8 ML NS BID for 14 Days, #1 SPRAY 0 Refills Prov: PHILL DOBBINS 06/26/22 Meclizine HCl (Meclizine HCl) 25 Mg Tablet 25 MG PO Q6H PRN for VERTIGO, #30 TAB 0 Refills Prov: PHILL DOBBINS 06/26/22 PHILL DOBBINS Jun 26, 2022 18:40
[2022-06-26] MEDS ORDERED: NS IV 1000 ML 1,000 ML IV SCH (18:45)
[2022-06-26] MEDS ORDERED: FLUT15.812 NS (19:04)
[2022-06-26] MEDS ORDERED: MECL-149 PO (19:04)
[2022-06-26 19:48] VITALS: BP 122/70
== END 2022-06-26 19:48 | disposition home or self-care (01) ==
LOC: EDUNIT# 17:51 → ER 17:53
DX: H83.01 Labyrinthitis, right ear (principal); E66.9 Obesity, unspecified; Z98.890 Other specified postprocedural states; Z86.16 Personal history of COVID-19; Z68.39 Body mass index [BMI] 39.0-39.9, adult
CPT/HCPCS: 36415; 71045; 80053; 83735; 83874; 84484; 85025; 85610; 85730; 93005; 93041; 96360

== ENCOUNTER 2022-09-15 15:29 | Emergency (ER) | payer MEDICAID, MEDICARE ==
[~2022-09-15] VITALS: Ht 162 cm; Wt 105.2 kg
[~2022-09-15 15:29] MED LIST changes: +FLUT15.812 NS; +MECL-149 PO
[2022-09-15] MEDS ORDERED: LACTATED RINGERS 1,000 ML IV STA (15:42)
[2022-09-15] MEDS ORDERED: FAMOTIDINE 20 MG (PEPCID) TABLET PO STA (15:42)
[2022-09-15] MEDS ORDERED: LIDOCAINE 2% VISCOUS 15 ML UDC PO ONE (15:45)
[2022-09-15] MEDS ORDERED: ANTACID SUSP 30 ML UDC (MYLANTA) PO ONE (15:45)
--- NOTE | 2022-09-15 15:49 | ED Chest Pain ---
General Chief Complaint: Chest Pain Stated Complaint: CHEST PAIN Nursing Triage Note: PT TO [facility] BY [facility] WITH C/O CP ON AND OFF ALL DAY. PT STATES SHE FELT A SHARP PAIN IN HER CHEST A FEW TIMES TODAY. Source: patient, EMS Exam Limitations: no limitations History of Present Illness Date Seen by Provider: Sep 15, 2022 Time Seen by Provider: 15:31 Initial Comments 47-year-old female with past medical history of diabetes coming in via EMS from home due to chest pain. Started last night as a tightness, has been constant since then. Has had a few seconds of sharpness that goes away almost immediately. Nothing really seems to make it better or worse. EMS reports giving her 4 baby aspirin. The patient denies having symptoms like this before. Denies any recent surgery, recent long travel, lower extremity swelling or pain, prior history of DVT or PE, does not take hormones. Otherwise denying any shortness of breath, cough, fever, abdominal pain, nausea, vomiting, diarrhea, focal weakness or numbness, headache, vision changes, or any other concerns. LMP was less than a month ago. Allergies and Home Medications Allergies Coded Allergies: dapagliflozin (Verified Allergy, Unknown, 06/26/22) duloxetine (Verified Allergy, Unknown, 06/26/22) escitalopram (Verified Allergy, Unknown, 06/26/22) paroxetine (Verified Allergy, Unknown, 06/26/22) peanut (Verified Allergy, Unknown, 06/26/22) pneumococcal vaccine (Verified Allergy, Unknown, 06/26/22) Patient Home Medication List Home Medication List Reviewed: Yes Enalapril Maleate (Vasotec) 20 Mg Tablet, 20 MG PO DAILY, (Reported) Entered as Reported by: HERSON HA on 02/27/12 0939 Escitalopram Oxalate (Lexapro) 10 Mg Tablet, 1 EACH PO DAILY, (Reported) Entered as Reported by: GINNA LABOY on 07/19/13 0020 Fluticasone Propionate (Allergy Relief) 50 Mcg/Actuation [place].susp, 15.8 ML NS BID Prescribed by: PHILL DOBBINS on 06/26/221903 Meclizine HCl (Meclizine HCl) 25 Mg Tablet, 25 MG PO Q6H PRN for VERTIGO Prescribed by: PHILL DOBBINS on 06/26/221903 Omeprazole (Omeprazole) 20 Mg Capsule.dr, 20 MG PO DAILY Prescribed by: SEBASTIÁN BUTLER on 09/14/20 1705 Trimethoprim/Sulfamethoxazole (Bactrim Ds) 1 Ea Tablet, 1 EA PO BID Prescribed by: MARKEL GARCIA on 07/19/13 0130 Review of Systems Review of Systems Constitutional: No fever EENTM: No Symptoms Reported Respiratory: No Symptoms Reported Cardiovascular: See HPI Gastrointestinal: No Symptoms Reported Genitourinary: No Symptoms Reported Musculoskeletal: no symptoms reported Skin: no symptoms reported Psychiatric/Neurological: No Symptoms Reported Endocrine: No Symptoms Reported Hematologic/Lymphatic: No Symptoms Reported All Other Systems Reviewed Negative Unless Noted: Yes Past Owybktq-Yfugji-Ujvpye Hx Patient Social History Tobacco Use?: No Use of E-Cig and/or Vaping dev: No Substance use?: No Alcohol Use?: No Pt feels they are or have been: No Immunizations Up To Date Tetanus Booster (TDap): Unknown Influenza Vaccine Up-to-Date: Yes; Up-to-Date Past Medical History Surgery/Hospitalization HX: DM, HLD, DEPRESSION, ANXIETY, HTN TUBAL Surgeries: Yes (TUBAL LIGATION, EAR SURGERY, ABSCESS LANCED TO LEFT LEG) Tubal Ligation Respiratory: Yes (HAS AN INHALER) Cardiac: Yes Hypertension Neurological: Yes (BRAIN INJURY AT 8 YRS OLD) Traumatic Brain Injury 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 oz. 99.215506oo; 40.00 BMI Method:Stated General Appearance: No Apparent Distress, WD/WN HEENT: PERRL/EOMI, Normal ENT Inspection, Pharynx Normal Neck: Full Range of Motion, Normal Inspection, Non Tender, Supple Respiratory: Chest Non Tender, Lungs Clear, Normal Breath Sounds, No Accessory Muscle Use, No Respiratory Distress Cardiovascular: Regular Rate, Rhythm, No Edema, Normal Peripheral Pulses Gastrointestinal: Normal Bowel Sounds, Non Tender, Soft; No Distended, No Guarding Extremity: Normal Capillary Refill, Normal Inspection, Normal Range of Motion, Non Tender, No Calf Tenderness, No Pedal Edema Neurologic/Psychiatric: Alert, No Motor/Sensory Deficits, Normal Mood/Affect Skin: Normal Color, Warm/Dry Lymphatic: No Adenopathy Progress/Results/Core Measures Results/Orders Lab Results Laboratory Tests Test 09/15/22 15:36 09/15/22 17:20 Range/Units White Blood Count 7.7 4.3-11.0 10^3/uL Red Blood Count 5.09 3.80-5.11 10^6/uL Hemoglobin 15.7 11.5-16.0 g/dL Hematocrit 45 35-52 % Mean Corpuscular Volume 89 80-99 fL Mean Corpuscular Hemoglobin 31 25-34 pg Mean Corpuscular Hemoglobin Concent 35 32-36 g/dL Red Cell Distribution Width 12.1 10.0-14.5 % Platelet Count 311 130-400 10^3/uL Mean Platelet Volume 9.6 9.0-12.2 fL Immature Granulocyte % (Auto) 1 % Neutrophils (%) (Auto) 55 42-75 % Lymphocytes (%) (Auto) 35 12-44 % Monocytes (%) (Auto) 8 0-12 % Eosinophils (%) (Auto) 1 0-10 % Basophils (%) (Auto) 1 0-10 % Neutrophils # (Auto) 4.3 1.8-7.8 10^3/uL Lymphocytes # (Auto) 2.7 1.0-4.0 10^3/uL Monocytes # (Auto) 0.6 0.0-1.0 10^3/uL Eosinophils # (Auto) 0.1 0.0-0.3 10^3/uL Basophils # (Auto) 0.0 0.0-0.1 10^3/uL Immature Granulocyte # (Auto) 0.0 0.0-0.1 10^3/uL Prothrombin Time 13.0 12.2-14.7 SEC INR Comment 0.9 0.8-1.4 Activated Partial Thromboplast Time 26 24-35 SEC Sodium Level 138 135-145 MMOL/L Potassium Level 4.3 3.6-5.0 MMOL/L Chloride Level 101 98-107 MMOL/L Carbon Dioxide Level 19 L 21-32 MMOL/L Anion Gap 18 H 5-14 MMOL/L Blood Urea Nitrogen 17 7-18 MG/DL Creatinine 0.76 0.60-1.30 MG/DL Estimat Glomerular Filtration Rate 98 BUN/Creatinine Ratio 22 Glucose Level 219 H 70-105 MG/DL Calcium Level 10.1 8.5-10.1 MG/DL Corrected Calcium 9.8 8.5-10.1 MG/DL Magnesium Level 1.3 L 1.6-2.4 MG/DL Total Bilirubin 0.4 0.1-1.0 MG/DL Aspartate Amino Transf (AST/SGOT) 21 5-34 U/L Alanine Aminotransferase (ALT/SGPT) 31 0-55 U/L Alkaline Phosphatase 92 40-136 U/L Troponin I < 0.028 <0.028 NG/ML B-Type Natriuretic Peptide < 10.0 <100.0 PG/ML Total Protein 7.6 6.4-8.2 GM/DL Albumin 4.4 3.2-4.5 GM/DL Lipase 50 8-78 U/L Acetaminophen Level < 10 L 10-30 UG/ML My Orders Orders - NIKKI TRUJILLO MD Ekg Tracing (09/15/22 15:32) Cbc With Automated Diff (09/15/22 15:42) Magnesium (09/15/22 15:42) Chest 1 View, Ap/Pa Only (09/15/22 15:42) Ekg Tracing (09/15/22 15:42) Comprehensive Metabolic Panel (09/15/22 15:42) Protime With Inr (09/15/22 15:42) Partial Thromboplastin Time (09/15/22 15:42) O2 (09/15/22 15:42) Monitor-Rhythm Ecg Trace Only (09/15/22 15:42) Ed Iv/Invasive Line Start (09/15/22 15:42) Lipase (09/15/22 15:42) Bnp [place] (09/15/22 15:42) Troponin I [place] (09/15/22 15:42) Lactated Ringers (Lr 1000 Ml Iv Solution (09/15/22 15:42) Lidocaine 2% Viscous 15 Ml (Xylocaine Vi (09/15/22 15:45) Famotidine Tablet (Pepcid Tablet) (09/15/22 15:42) Antacid Suspension (Mylanta Suspension (09/15/22 15:45) Acetaminophen (09/15/22 15:42) Magnesium 1 Gm/100 Ml Ivpb (Magnesium [place] (09/15/22 16:26) Troponin I [place] (09/15/22 17:05) Magnesium 1 Gm/100 Ml Ivpb (Magnesium [place] (09/15/22 17:05) Lorazepam Tablet (Ativan Tablet) (09/15/22 17:15) Ketorolac Injection (Toradol Injection) (09/15/22 17:30) Ondansetron Injection (Zofran Injectio (09/15/22 17:30) Medications Given in ED Current Medications Medications Dose Ordered Sig/Stephie Route Start Time Stop Time Status Last Admin Dose Admin Al Hydrox/Mg Hydrox/Simethicone 30 ml ONCE ONCE PO 09/15/22 15:45 09/15/22 15:47 DC 09/15/22 15:53 30 ML Ketorolac Tromethamine 15 mg ONCE ONCE IVP 09/15/22 17:30 09/15/22 17:31 DC 09/15/22 17:33 15 MG Lidocaine HCl 15 ml ONCE ONCE PO 09/15/22 15:45 09/15/22 15:47 DC 09/15/22 15:53 15 ML Lorazepam 0.5 mg ONCE ONCE PO 09/15/22 17:15 09/15/22 17:16 DC 09/15/22 17:15 0.5 MG Ondansetron HCl 4 mg ONCE ONCE IVP 09/15/22 17:30 09/15/22 17:31 DC 09/15/22 17:33 4 MG Vital Signs/I&O 09/15/22 15:33 Temp 35.6 Pulse 107 Resp 19 B/P (MAP) 188/107 (134) Blood Pressure Mean: 134 Progress Progress Note : Progress Note 47-year-old female with above history coming in due to chest pain. ABCs were intact and vitals were stable on presentation although her heart rate was just above 100. On review of the chart, her heart rate typically has been around 100 similar to where it is right now during previous visits. She had a similar episode with a negative cardiac work-up. Had a stress test done for this chest pain roughly 5 months ago which was normal as well. Otherwise low risk for a PE per [place] criteria and I have a low suspicion for this at this time. Troponin negative x2. Chest x-ray negative for acute abnormalities. EKG nonischemic. I believe the patient is stable for discharge with outpatient follow-up. She was sent home with strict return precautions Initial ECG Impression Date: Sep 15, 2022 Initial ECG Impression Time: 15:35 Initial ECG Rate: 103 Initial ECG Rhythm: S.Tach Comment Narrow QRS, normal axis, no significant ST changes or T wave abnormalities, appears almost identical to EKG from May 2020 Diagnostic Imaging Diagonstic Imaging: Xray (chest) Comments [facility], [place] NAME: JOSHUA HERRON [facility] REC#: [id number] PT STATUS: REG ER : 1975 PHYSICIAN: NIKKI TRUJILLO MD ADMIT DATE: 09/15/22/ER Draft Date of Exam:09/15/22 CHEST 1 VIEW, AP/PA ONLY INDICATION: Chest pain. COMPARISON: 06/26/2022. DISCUSSION: Single portable upright view of the chest was obtained. Normal heart size. No consolidation, pleural fluid or pneumothorax. No osseous abnormality. IMPRESSION: Negative chest. Dictated on workstation # [id number] Dict: 09/15/22 1557 Trans: 09/15/[address] [facility] [id number] Interpreted by: KAYLA COLUNGA MD Electronically signed by: Departure Impression Primary Impression: Atypical chest pain Disposition: 01 HOME, SELF-CARE Condition: Stable Departure-Patient Inst. Decision time for Depature: 17:36 Referrals: NO,LOCAL PHYSICIAN (PCP/Family) Primary Care Physician Patient Instructions: Chest Pain (DC) Add. Discharge Instructions: It does not appear like you are having a heart attack or anything more serious at this time. 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 Regan. Take Tylenol or ibuprofen as needed for headache. Work/School Note: Work Release Form Date Seen in the Emergency Department: Sep 15, 2022 Return to Work: Sep 17, 2022 Restrictions: No Restrictions NIKKI TRUJILLO MD Sep 15, 2022 15:49
[2022-09-15 16:02] LABS: BASOPHILS % (AUTO) 1 % (0-10); EOSINOPHILS # (AUTO) 0.1 10^3/uL (0.0-0.3); EOSINOPHILS % (AUTO) 1 % (0-10); HEMATOCRIT 45 % (35-52); HEMOGLOBIN 15.7 g/dL (11.5-16.0); LYMPHOCYTES # (AUTO) 2.7 10^3/uL (1.0-4.0); LYMPHOCYTES % (AUTO) 35 % (12-44); MEAN CORPUSCULAR HEMOGLOBIN 31 pg (25-34); MEAN CORPUSCULAR HGB CONC 35 g/dL (32-36); MEAN CORPUSCULAR VOLUME 89 fL (80-99); MEAN PLATELET VOLUME 9.6 fL (9.0-12.2); MONOCYTES # (AUTO) 0.6 10^3/uL (0.0-1.0); MONOCYTES % (AUTO) 8 % (0-12); NEUTROPHILS # (AUTO) 4.3 10^3/uL (1.8-7.8); NEUTROPHILS % (AUTO) 55 % (42-75); PLATELET COUNT 311 10^3/uL (130-400); WHITE BLOOD COUNT 7.7 10^3/uL (4.3-11.0)
--- NOTE | 2022-09-15 16:03 | Diagnostic Imaging Report ---
INDICATION: Chest pain. COMPARISON: 06/26/2022. DISCUSSION: Single portable upright view of the chest was obtained. Normal heart size. No consolidation, pleural fluid or pneumothorax. No osseous abnormality. IMPRESSION: Negative chest. Dictated by: Dictated on workstation # [id number]
[2022-09-15 16:04] LABS: INR 0.9 (0.8-1.4)
[2022-09-15 16:11] LABS: ALBUMIN 4.4 GM/DL (3.2-4.5)
[2022-09-15 16:12] LABS: POTASSIUM 4.3 MMOL/L (3.6-5.0)
[2022-09-15 16:13] LABS: CALCIUM 10.1 MG/DL (8.5-10.1)
[2022-09-15 16:14] LABS: TOTAL PROTEIN 7.6 GM/DL (6.4-8.2)
[2022-09-15 16:16] LABS: BILIRUBIN,TOTAL 0.4 MG/DL (0.1-1.0)
[2022-09-15 16:17] LABS: CREATININE SERUM 0.76 MG/DL (0.60-1.30)
[2022-09-15 16:20] LABS: MAGNESIUM 1.3 MG/DL (1.6-2.4)
[2022-09-15] MEDS ORDERED: MAGNESIUM 1 GM/100 ML IVPB 100 ML IV STA ×2 (16:26→17:05)
[2022-09-15 16:54] LABS: ACETAMINOPHEN < 10 UG/ML (10-30)
[2022-09-15] MEDS ORDERED: LORazepam 0.5 MG (ATIVAN) TABLET PO ONE (17:15)
[2022-09-15] MEDS ORDERED: ONDANSETRON 4 MG/2 ML (SDV) Z0FRAN IVP ONE (17:30)
[2022-09-15] MEDS ORDERED: KETOROLAC 30 MG/ML VIAL IVP ONE (17:30)
[2022-09-15 18:13] VITALS: BP 141/87
== END 2022-09-15 18:13 | disposition home or self-care (01) ==
LOC: EDUNIT# 15:29 → ER 15:31
DX: R07.89 Other chest pain (principal); Z28.310 Unvaccinated for COVID-19
CPT/HCPCS: 71045; 80053; 83690; 83735; 83880; 84484; 85025; 85610; 85730; 93005; 99283; G0480; 36415; 80329

== ENCOUNTER 2022-09-17 17:14 | Emergency (ER) | payer MEDICAID ==
[~2022-09-17] VITALS: Ht 162 cm; Wt 102.9 kg
[2022-09-17] MEDS ORDERED: ALPRAZolam 0.5 MG (XANAX) TAB PO SCH (17:45)
--- NOTE | 2022-09-17 17:48 | ED Chest Pain ---
General Chief Complaint: Chest Pain Stated Complaint: CHEST PAIN Nursing Triage Note: pt presents to ed via ems from [facility] for complaints of chest pain and dizziness. pt was seen in ed last week for similar s/s. ems reports giving 324 mg asa in route. pt rates chest pain a 1/10 and describes it as a pressure. pt also reports soa. Source: patient Exam Limitations: no limitations History of Present Illness Date Seen by Provider: Sep 17, 2022 Time Seen by Provider: 17:47 Initial Comments This is a 47 yo female who presented to the ER via POV with c/o chest pressure that started 3 hours prior to arrival. Allergies and Home Medications Allergies Coded Allergies: dapagliflozin (Verified Allergy, Unknown, 06/26/22) duloxetine (Verified Allergy, Unknown, 06/26/22) escitalopram (Verified Allergy, Unknown, 06/26/22) paroxetine (Verified Allergy, Unknown, 06/26/22) peanut (Verified Allergy, Unknown, 06/26/22) pneumococcal vaccine (Verified Allergy, Unknown, 06/26/22) Patient Home Medication List Enalapril Maleate (Vasotec) 20 Mg Tablet, 20 MG PO DAILY, (Reported) Entered as Reported by: HERSON HA on 02/27/12 0939 Escitalopram Oxalate (Lexapro) 10 Mg Tablet, 1 EACH PO DAILY, (Reported) Entered as Reported by: GINNA LABOY on 07/19/13 0020 Fluticasone Propionate (Allergy Relief) 50 Mcg/Actuation [place].susp, 15.8 ML NS BID Prescribed by: PHILL DOBBINS on 06/26/221903 Meclizine HCl (Meclizine HCl) 25 Mg Tablet, 25 MG PO Q6H PRN for VERTIGO Prescribed by: PHILL DOBBINS on 06/26/221903 Omeprazole (Omeprazole) 20 Mg Capsule.dr, 20 MG PO DAILY Prescribed by: SEBASTIÁN BUTLER on 09/14/20 1705 Trimethoprim/Sulfamethoxazole (Bactrim Ds) 1 Ea Tablet, 1 EA PO BID Prescribed by: MARKEL GARCIA on 07/19/13 0130 Past Ynvjsfu-Rhokgz-Pvwaer Hx Patient Social History Tobacco Use?: No Substance use?: No Alcohol Use?: No Pt feels they are or have been: No Immunizations Up To Date Tetanus Booster (TDap): Unknown Past Medical History Surgery/Hospitalization HX: DM, HLD, DEPRESSION, ANXIETY, HTN TUBAL Surgeries: Yes (TUBAL LIGATION, EAR SURGERY, ABSCESS LANCED TO LEFT LEG) Tubal Ligation Respiratory: Yes (HAS AN INHALER) Cardiac: Yes Hypertension Neurological: Yes (BRAIN INJURY AT 8 YRS OLD) Traumatic Brain Injury 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 oz. 99.282748hy; 39.00 BMI Method:Stated Progress/Results/Core Measures Results/Orders Lab Results Laboratory Tests Test 09/17/22 17:22 Range/Units White Blood Count 8.6 4.3-11.0 10^3/uL Red Blood Count 5.24 H 3.80-5.11 10^6/uL Hemoglobin 15.7 11.5-16.0 g/dL Hematocrit 46 35-52 % Mean Corpuscular Volume 88 80-99 fL Mean Corpuscular Hemoglobin 30 25-34 pg Mean Corpuscular Hemoglobin Concent 34 32-36 g/dL Red Cell Distribution Width 12.1 10.0-14.5 % Platelet Count 320 130-400 10^3/uL Mean Platelet Volume 9.6 9.0-12.2 fL Immature Granulocyte % (Auto) 0 % Neutrophils (%) (Auto) 51 42-75 % Lymphocytes (%) (Auto) 39 12-44 % Monocytes (%) (Auto) 9 0-12 % Eosinophils (%) (Auto) 1 0-10 % Basophils (%) (Auto) 1 0-10 % Neutrophils # (Auto) 4.4 1.8-7.8 10^3/uL Lymphocytes # (Auto) 3.3 1.0-4.0 10^3/uL Monocytes # (Auto) 0.7 0.0-1.0 10^3/uL Eosinophils # (Auto) 0.1 0.0-0.3 10^3/uL Basophils # (Auto) 0.1 0.0-0.1 10^3/uL Immature Granulocyte # (Auto) 0.0 0.0-0.1 10^3/uL Prothrombin Time 13.3 12.2-14.7 SEC INR Comment 1.0 0.8-1.4 Activated Partial Thromboplast Time 22 L 24-35 SEC D-Dimer 0.47 0.00-0.49 UG/ML Sodium Level 140 135-145 MMOL/L Potassium Level 4.1 3.6-5.0 MMOL/L Chloride Level 103 98-107 MMOL/L Carbon Dioxide Level 22 21-32 MMOL/L Anion Gap 15 H 5-14 MMOL/L Blood Urea Nitrogen 13 7-18 MG/DL Creatinine 0.72 0.60-1.30 MG/DL Estimat Glomerular Filtration Rate 105 BUN/Creatinine Ratio 18 Glucose Level 187 H 70-105 MG/DL Calcium Level 10.5 H 8.5-10.1 MG/DL Corrected Calcium 10.1 8.5-10.1 MG/DL Magnesium Level 1.4 L 1.6-2.4 MG/DL Total Bilirubin 0.3 0.1-1.0 MG/DL Aspartate Amino Transf (AST/SGOT) 28 5-34 U/L Alanine Aminotransferase (ALT/SGPT) 36 0-55 U/L Alkaline Phosphatase 90 40-136 U/L Total Creatine Kinase 44 29-168 U/L Creatine Kinase MB 0.3 <6.6 NG/ML Myoglobin 20.6 10.0-92.0 NG/ML Troponin I < 0.028 <0.028 NG/ML B-Type Natriuretic Peptide < 10.0 <100.0 PG/ML Total Protein 7.7 6.4-8.2 GM/DL Albumin 4.5 3.2-4.5 GM/DL Lipase 62 8-78 U/L My Orders Orders - LANDRY BAH APRN Ekg Tracing (09/17/22 17:16) Ekg Tracing (09/17/22 17:16) Alprazolam Tablet (Xanax Tablet) (09/17/22 17:45) Cbc With Automated Diff (09/17/22 17:46) Magnesium (09/17/22 17:46) Chest 1 View, Ap/Pa Only (09/17/22 17:46) Comprehensive Metabolic Panel (09/17/22 17:46) Myoglobin Serum (09/17/22 17:46) Protime With Inr (09/17/22 17:46) Partial Thromboplastin Time (09/17/22 17:46) O2 (09/17/22 17:46) Monitor-Rhythm Ecg Trace Only (09/17/22 17:46) Ed Iv/Invasive Line Start (09/17/22 17:46) Creatine Kinase (09/17/22 17:46) Creatine Kinase Mb (09/17/22 17:46) Lipase (09/17/22 17:46) Bnp [place] (09/17/22 17:46) Fibrin Degradation Products (09/17/22 17:46) Troponin I [place] (09/17/22 17:46) Aspirin Chewable Tablet (Baby Aspirin Ch (09/17/22 18:00) Ct Abdomen/Pelvis W (09/17/22 18:34) Iohexol Injection (Omnipaque 350 Mg/Ml 1 (09/17/22 18:45) Received Contrast (Hold Metformin- Contr (09/17/22 18:45) Ns (Ivpb) (Sodium Chloride 0.9% Ivpb Bag (09/17/22 18:45) Medications Given in ED Current Medications Medications Dose Ordered Sig/Stephie Route Start Time Stop Time Status Last Admin Dose Admin Iohexol 100 ml ONCE ONCE IV 09/17/22 18:45 09/17/22 18:46 DC 09/17/22 19:02 100 ML Sodium Chloride 100 ml ONCE ONCE IV 09/17/22 18:45 09/17/22 18:46 DC 09/17/22 19:02 100 ML Vital Signs/I&O 09/17/22 17:17 Temp 36.7 Pulse 106 Resp 22 B/P (MAP) 152/99 (116) Pulse Ox 98 Blood Pressure Mean: 116 Departure Impression Primary Impression: Atypical chest pain Additional Impression: Anxiety Disposition: 01 HOME, SELF-CARE Condition: Improved Departure-Patient Inst. Decision time for Depature: 19:35 Referrals: NO,LOCAL PHYSICIAN (PCP/Family) Primary Care Physician Patient Instructions: Anxiety, Adult ED Add. Discharge Instructions: Plan: 1. Follow up with your doctor later this week. 2. Take your anxiety medication as directed. 3. Return for any new, concerning, or worsening symptoms. All discharge instructions reviewed with patient and/or family. Voiced understanding. LANDRY BAH ORTHODONTIST SMALL BUSINESS OWNER Sep 17, 2022 17:48
[2022-09-17 17:52] LABS: BASOPHILS # (AUTO) 0.1 10^3/uL (0.0-0.1); BASOPHILS % (AUTO) 1 % (0-10); EOSINOPHILS # (AUTO) 0.1 10^3/uL (0.0-0.3); EOSINOPHILS % (AUTO) 1 % (0-10); HEMATOCRIT 46 % (35-52); HEMOGLOBIN 15.7 g/dL (11.5-16.0); LYMPHOCYTES # (AUTO) 3.3 10^3/uL (1.0-4.0); LYMPHOCYTES % (AUTO) 39 % (12-44); MEAN CORPUSCULAR HEMOGLOBIN 30 pg (25-34); MEAN CORPUSCULAR HGB CONC 34 g/dL (32-36); MEAN CORPUSCULAR VOLUME 88 fL (80-99); MEAN PLATELET VOLUME 9.6 fL (9.0-12.2); MONOCYTES # (AUTO) 0.7 10^3/uL (0.0-1.0); MONOCYTES % (AUTO) 9 % (0-12); NEUTROPHILS # (AUTO) 4.4 10^3/uL (1.8-7.8); NEUTROPHILS % (AUTO) 51 % (42-75); PLATELET COUNT 320 10^3/uL (130-400); WHITE BLOOD COUNT 8.6 10^3/uL (4.3-11.0)
[2022-09-17 17:58] LABS: ALBUMIN 4.5 GM/DL (3.2-4.5); POTASSIUM 4.1 MMOL/L (3.6-5.0)
[2022-09-17 17:59] LABS: PROTHROMBIN TIME PATIENT 13.3 SEC (12.2-14.7)
[2022-09-17 18:00] LABS: CALCIUM 10.5 MG/DL (8.5-10.1)
[2022-09-17] MEDS ORDERED: ASPIRIN 81 MG CHEW (CHILDREN'S ASA) PO ONE (18:00)
[2022-09-17 18:01] LABS: TOTAL PROTEIN 7.7 GM/DL (6.4-8.2)
[2022-09-17 18:03] LABS: BILIRUBIN,TOTAL 0.3 MG/DL (0.1-1.0)
[2022-09-17 18:04] LABS: CREATININE SERUM 0.72 MG/DL (0.60-1.30)
[2022-09-17 18:07] LABS: MAGNESIUM 1.4 MG/DL (1.6-2.4)
--- NOTE | 2022-09-17 18:12 | Diagnostic Imaging Report ---
HISTORY: Chest pain. TECHNIQUE: Frontal view of the chest. COMPARISON: 09/15/2022. FINDINGS: Lung volumes are normal. No consolidation is seen. There is no pleural effusion or pneumothorax. The cardiac silhouette is normal in size. IMPRESSION: 1. No acute pulmonary abnormality. Dictated by: Dictated on workstation # [id number]
[2022-09-17 18:14] LABS: CREATINE KINASE MB 0.3 NG/ML (<6.6)
[2022-09-17] MEDS ORDERED: NS 100 ML (IVPB) BAG IV ONE (18:45)
[2022-09-17] MEDS ORDERED: IOHEXOL 350 MG/ML 100 ML (OMNIPAQUE 350) VIAL IV ONE (18:45)
[2022-09-17] MEDS ORDERED: HOLD METFORMIN - RECEIVED CONTRAST 20 ML VIAL IV SCH (18:45)
--- NOTE | 2022-09-17 19:23 | Diagnostic Imaging Report ---
PROCEDURE: CT abdomen and pelvis with contrast. TECHNIQUE: Multiple contiguous axial images were obtained through the abdomen and pelvis after administration of intravenous contrast. Auto Exposure Controls were utilized during the CT exam to meet ALARA standards for radiation dose reduction. All CT scans use one or more of the following dose optimizing techniques: automated exposure control, MA and/or KvP adjustment based on patient size and exam type or iterative reconstruction. INDICATION: Abdominal pain. COMPARISON: 05/21/2014 FINDINGS: Lung bases are clear. The heart is normal in size. Liver demonstrates no focal lesions. The spleen appears normal. The pancreas is unremarkable. The adrenal glands appear normal. The kidneys demonstrate no enhancing lesions and no hydronephrosis. There is a cortical scar in the inferior pole of the right kidney. The appendix is normal. The bowel loops are nondistended without obstruction. There is moderate stool in the proximal colon. No free fluid or free air seen. There is calcific atherosclerosis, greater than expected for age. No acute osseous abnormality is seen. IMPRESSION: 1. Moderate stool in the proximal colon with no findings of bowel obstruction. No acute abnormalities seen in the abdomen or pelvis. Dictated by: Dictated on workstation # [id number]
[2022-09-17 20:02] VITALS: BP 125/97
== END 2022-09-17 20:02 | disposition home or self-care (01) ==
LOC: EDUNIT# 17:14 → ER 17:15
DX: R07.89 Other chest pain (principal); F41.9 Anxiety disorder, unspecified; Z28.310 Unvaccinated for COVID-19
CPT/HCPCS: 36415; 71045; 74177; 80053; 82550; 82553; 83690; 83735; 83874; 83880; 84484; 85025; 85379; 85610; 85730; 93005; 93041

== ENCOUNTER 2022-11-19 23:31 | Emergency (ER) | payer MEDICAID, MEDICARE ==
[~2022-11-19] VITALS: Ht 162 cm; Wt 104.0 kg
--- NOTE | 2022-11-19 23:43 | ED Cardiac General ---
History of Present Illness General Stated Complaint: PALPITATIONS Source: patient, EMS, old records History of Present Illness Date Seen by Provider: Nov 19, 2022 Time Seen by Provider: 23:34 Initial Comments PT ARRIVES VIA EMS FROM HOME C/O LEFT UPPER CHEST "MUSCLE SPASMS" --BEGAN JUST PRIOR TO ARRIVAL WHILE CLEANING HER ROOM PT STATES "I HAVE THIS ALL THE TIME" --SYMPTOMS NO DIFFERENT TODAY IN ANY WAY . LATER STATES THAT SHE HAS BEEN HAVING THIS ALL DAY--"FLUTTERING AND BACK MUSCLE SPASMS" THEN STATES "FLUTTERING AND MUSCLE SPASMS IN MY CHEST" STATES IT IS MOSTLY WHEN SHE LAYS ON HER BACK OR ON HER LEFT SIDE. DOES NOT HAPPEN IF SHE LAYS ON HER RIGHT SIDE. ALSO HAPPENS IF SHE MOVES A CERTAIN WAY HAS NOT TAKEN ANYTHING FOR PAIN NO TREATMENT BY EMS PT IS VERY WELL KNOWN TO EMS STAFF--PT FREQUENTLY CALLS 911, JUST WANTS HER VITALS CHECKED, AND THEN REFUSES TRANSPORT PT HAS ALSO HAD MULTIPLE VISITS HERE FOR THIS SAME COMPLAINT. CARDIAC WORK-UPS HAVE BEEN NEGATIVE. PT SMOKES, OCCASIONAL ETOH USE, HAS DENIED DRUG USE PT IS INSULIN DEPENDENT DIABETIC. STATES BLOOD GLUCOSE WAS 230 EARLIER THIS EVENING SHE HAS NOT TAKEN ANY OF HER EVENING MEDICATIONS PCP [facility] Allergies and Home Medications Allergies Coded Allergies: dapagliflozin (Verified Allergy, Unknown, 06/26/22) duloxetine (Verified Allergy, Unknown, 06/26/22) escitalopram (Verified Allergy, Unknown, 06/26/22) paroxetine (Verified Allergy, Unknown, 06/26/22) peanut (Verified Allergy, Unknown, 06/26/22) pneumococcal vaccine (Verified Allergy, Unknown, 06/26/22) Patient Home Medication List Home Medication List Reviewed: Yes Cyclobenzaprine HCl (Cyclobenzaprine HCl) 10 Mg Tablet, 10 MG PO Q8H PRN for SPASMS Prescribed by: EDU GONZÁLES on 11/20/22 0054 Enalapril Maleate (Vasotec) 20 Mg Tablet, 20 MG PO DAILY, (Reported) Entered as Reported by: HERSON HA on 02/27/12 0939 Escitalopram Oxalate (Lexapro) 10 Mg Tablet, 1 EACH PO DAILY, (Reported) Entered as Reported by: GINNA LABOY on 07/19/13 0020 Fluticasone Propionate (Allergy Relief) 50 Mcg/Actuation [place].susp, 15.8 ML NS BID Prescribed by: PHILL DOBBINS on 06/26/221903 Meclizine HCl (Meclizine HCl) 25 Mg Tablet, 25 MG PO Q6H PRN for VERTIGO Prescribed by: PHILL DOBBINS on 06/26/221903 Naproxen (Naproxen) 500 Mg Tablet.dr, 500 MG PO BID Prescribed by: EDU GONZÁLES on 11/20/22 0054 Omeprazole (Omeprazole) 20 Mg Capsule.dr, 20 MG PO DAILY Prescribed by: SEBASTIÁN BUTLER on 09/14/20 1705 Trimethoprim/Sulfamethoxazole (Bactrim Ds) 1 Ea Tablet, 1 EA PO BID Prescribed by: MARKEL GARCIA on 07/19/13 0130 Review of Systems Review of Systems Constitutional: no symptoms reported EENTM: No Symptoms Reported Respiratory: No Symptoms Reported Cardiovascular: See HPI Gastrointestinal: No Symptoms Reported Genitourinary: No Symptoms Reported Musculoskeletal: no symptoms reported Skin: no symptoms reported Psychiatric/Neurological: Anxiety Endocrine: No Symptoms Reported Hematologic/Lymphatic: No Symptoms Reported Past Uutgysz-Xbwdfm-Quvrzb Hx Patient Social History Tobacco Use?: Yes Tobacco type used: Cigarettes Smoking Status: Current Everyday Smoker Alcohol Use?: Yes Alcohol Frequency: Once in a while Immunizations Up To Date Tetanus Booster (TDap): Unknown Past Medical History Surgery/Hospitalization HX: DM, HLD, DEPRESSION, ANXIETY, HTN TUBAL Surgeries: Yes (TUBAL LIGATION, EAR SURGERY, ABSCESS LANCED TO LEFT LEG) Ear Surgery, Tubal Ligation Respiratory: Yes (HAS AN INHALER) Cardiac: Yes Hypertension Neurological: Yes (BRAIN INJURY AT 8 YRS OLD) Traumatic Brain Injury 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 Disorders: No ACCT EXEC History: Tubal Ligation Genitourinary: Yes Renal Failure Gastrointestinal: No Musculoskeletal: Yes Scoliosis Endocrine: Yes (IDDM; OBESITY) Diabetes, Insulin dep HEENT: No Cancer: No Psychosocial: Yes (schizoaffective disorder) Anxiety, Schizophrenia, Depression Integumentary: No Blood Disorders: No Family Medical History No Pertinent Family Hx Physical Exam Vital Signs Vital Signs - First Documented 11/19/22 23:35 Temp 35.8 Pulse 96 Resp 16 B/P (MAP) 134/86 (102) Pulse Ox 100 O2 Delivery Room Air Capillary Refill : Height, Weight, BMI Height: 5'4.00" Weight: 220lbs. oz. 99.487035dq; 39.00 BMI Method:Stated General Appearance: No Apparent Distress, WD/WN, Obese, Other (DRAMATIC. 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 ), Other (EXTENSIVE SORES/SCARS/SCABS TO FACE AND ARMS, ABDOMEN AND CHEST. ) Progress/Results/Core Measures Results/Orders Lab Results Laboratory Tests Test 11/19/22 23:50 11/20/22 00:23 11/20/22 00:30 Range/Units White Blood Count 7.8 4.3-11.0 10^3/uL Red Blood Count 4.73 3.80-5.11 10^6/uL Hemoglobin 14.5 11.5-16.0 g/dL Hematocrit 43 35-52 % Mean Corpuscular Volume 91 80-99 fL Mean Corpuscular Hemoglobin 31 25-34 pg Mean Corpuscular Hemoglobin Concent 34 32-36 g/dL Red Cell Distribution Width 12.6 10.0-14.5 % Platelet Count 307 130-400 10^3/uL Mean Platelet Volume 9.6 9.0-12.2 fL Immature Granulocyte % (Auto) 1 % Neutrophils (%) (Auto) 48 42-75 % Lymphocytes (%) (Auto) 39 12-44 % Monocytes (%) (Auto) 10 0-12 % Eosinophils (%) (Auto) 2 0-10 % Basophils (%) (Auto) 1 0-10 % Neutrophils # (Auto) 3.7 1.8-7.8 10^3/uL Lymphocytes # (Auto) 3.0 1.0-4.0 10^3/uL Monocytes # (Auto) 0.7 0.0-1.0 10^3/uL Eosinophils # (Auto) 0.2 0.0-0.3 10^3/uL Basophils # (Auto) 0.1 0.0-0.1 10^3/uL Immature Granulocyte # (Auto) 0.0 0.0-0.1 10^3/uL Erythrocyte Sedimentation Rate 13 0-20 MM/HR Prothrombin Time 13.3 12.2-14.7 SEC INR Comment 1.0 0.8-1.4 Activated Partial Thromboplast Time 26 24-35 SEC D-Dimer 0.23 0.00-0.49 UG/ML Sodium Level 139 135-145 MMOL/L Potassium Level 4.3 3.6-5.0 MMOL/L Chloride Level 103 98-107 MMOL/L Carbon Dioxide Level 22 21-32 MMOL/L Anion Gap 14 5-14 MMOL/L Blood Urea Nitrogen 17 7-18 MG/DL Creatinine 0.91 0.60-1.30 MG/DL Estimat Glomerular Filtration Rate 79 BUN/Creatinine Ratio 19 Glucose Level 304 H 70-105 MG/DL Calcium Level 9.9 8.5-10.1 MG/DL Corrected Calcium 9.9 8.5-10.1 MG/DL Magnesium Level 1.8 1.6-2.4 MG/DL Total Bilirubin 0.2 0.1-1.0 MG/DL Aspartate Amino Transf (AST/SGOT) 16 5-34 U/L Alanine Aminotransferase (ALT/SGPT) 28 0-55 U/L Alkaline Phosphatase 77 40-136 U/L Total Creatine Kinase 58 29-168 U/L Creatine Kinase MB 0.6 <6.6 NG/ML Myoglobin 27.4 10.0-92.0 NG/ML Troponin I < 0.028 <0.028 NG/ML C-Reactive Protein High Sensitivity 0.40 0.00-0.50 MG/DL B-Type Natriuretic Peptide < 10.0 <100.0 PG/ML Total Protein 7.1 6.4-8.2 GM/DL Albumin 4.0 3.2-4.5 GM/DL Amylase Level 41 25-125 U/L Lipase 49 8-78 U/L TSH [place] Testing 0.87 0.35-4.94 UIU/ML Serum Test, Qualitative NEGATIVE NEGATIVE Serum Alcohol < 10 <10 MG/DL Glucometer 289 H 70-110 MG/DL Urine Color OTHER H Urine Clarity CLEAR Urine pH 5.5 5-9 Urine Specific [place] 1.010 L 1.016-1.022 Urine Protein NEGATIVE NEGATIVE Urine Glucose (UA) 3+ H NEGATIVE Urine Ketones NEGATIVE NEGATIVE Urine Nitrite NEGATIVE NEGATIVE Urine Bilirubin NEGATIVE NEGATIVE Urine Urobilinogen 0.2 < = 1.0 MG/DL Urine Leukocyte Esterase NEGATIVE NEGATIVE Urine RBC (Auto) 3+ H NEGATIVE Urine RBC >100 H /HPF Urine WBC NONE /HPF Urine Squamous Epithelial Cells RARE /HPF Urine Crystals NONE /LPF Urine Bacteria NEGATIVE /HPF Urine Casts NONE /LPF Urine Mucus NEGATIVE /LPF Urine Culture Indicated NO Urine Opiates Screen NEGATIVE NEGATIVE Urine Oxycodone Screen NEGATIVE NEGATIVE Urine Methadone Screen NEGATIVE NEGATIVE Urine Propoxyphene Screen NEGATIVE NEGATIVE Urine Barbiturates Screen NEGATIVE NEGATIVE Ur Tricyclic Antidepressants Screen POSITIVE H NEGATIVE Urine Phencyclidine Screen NEGATIVE NEGATIVE Urine Amphetamines Screen NEGATIVE NEGATIVE Urine Methamphetamines Screen NEGATIVE NEGATIVE Urine Benzodiazepines Screen NEGATIVE NEGATIVE Urine Cocaine Screen NEGATIVE NEGATIVE Urine Cannabinoids Screen NEGATIVE NEGATIVE My Orders Orders - EDU GONZÁLES DO Ed Iv/Invasive Line Start (11/19/22 23:35) Ekg Tracing (11/19/22:35) Monitor-Rhythm Ecg Trace Only (11/19/22 23:35) Alcohol (11/19/22 23:35) Amylase (11/19/22 23:35) Bnp Mary (11/19/22 23:35) Cbc With Automated Diff (11/19/22:35) Comprehensive Metabolic Panel (11/19/22 23:35) Creatine Kinase (11/19/22 23:35) Creatine Kinase Mb (11/19/22 23:35) Hs C Reactive Protein (11/19/22 23:35) Fibrin Degradation Products (11/19/22:35) Drug Screen Stat (Urine) (11/19/22 23:35) Hcg,Qualitative Serum (11/19/22 23:35) Lipase (11/19/22 23:35) Magnesium (11/19/22 23:35) Protime With Inr (11/19/22:35) Partial Thromboplastin Time (11/19/22 23:35) Thyroid Analyzer (11/19/22 23:35) Ua Culture If Indicated (11/19/22 23:35) Erythrocyte Sedimentation Rate (11/19/22 23:35) Myoglobin Serum (11/19/22 23:35) Troponin I Mary (11/19/22 23:35) Chest 1 View, Ap/Pa Only (11/19/22 23:35) Aspirin Chewable Tablet (Baby Aspirin Ch (11/19/22 23:45) Ketorolac Injection (Toradol Injection) (11/20/22 01:00) Orphenadrine Inj (Ed Only) (Norflex Inje (11/20/22 01:00) Medications Given in ED Current Medications Medications Dose Ordered Sig/Stephie Route Start Time Stop Time Status Last Admin Dose Admin Aspirin 324 mg ONCE ONCE PO 11/19/22 23:45 11/19/22 23:46 DC 11/19/22 23:49 324 MG Ketorolac Tromethamine 30 mg ONCE ONCE IVP 11/20/22 01:00 11/20/22 01:01 DC 11/20/22 01:00 30 MG Orphenadrine Citrate 60 mg ONCE ONCE IV 11/20/22 01:00 11/20/22 01:01 DC 11/20/22 01:02 60 MG Vital Signs/I&O 11/19/22 11/20/22 23:35 01:20 Temp 35.8 Pulse 96 92 Resp 16 18 B/P (MAP) 134/86 (102) 116/74 Pulse Ox 100 97 O2 Delivery Room Air Room Air Progress Progress Note : Progress Note UNEVENTFUL ER STAY VITALS STABLE NO TACHYCARDIA OR ARRHYTHMIAS AT ANY TIME DURING ER STAY GIVEN: TORADOL AND NORFLEX SYMPTOMS IMPROVED AT DISMISSAL REVIEWED PRIOR RECORDS, ER VISITS, ADMITS, H&P'S, CONSULTS, TESTS/PROCEDURES, DISCHARGE SUMMARIES. DISCUSSED TEST RESULTS, ANTICIPATED COURSE, SYMPTOMATIC TREATMENT, NEED FOR FOLLOW UP AND RETURN PRECAUTIONS Initial ECG Impression Date: Nov 19, 2022 Initial ECG Impression Time: 23:38 Initial ECG Rate: 99 Initial ECG Rhythm: Normal Sinus Comment INTERPRETED BY ME Diagnostic Imaging Comments CXR--NO ACUTE PROCESS, PENDING RADIOLOGIST REVIEW Reviewed: Reviewed by Me Departure Impression Primary Impression: Left-sided chest wall pain Additional Impression: Diabetes mellitus, insulin dependent (IDDM), uncontrolled Disposition: 01 HOME, SELF-CARE Condition: Stable Departure-Patient Inst. Decision time for Depature: 00:52 Referrals: CINTHIA HDEZ DO [facility] Patient Instructions: Chest Pain (DC), Costochondritis, DIABETES Add. Discharge Instructions: MOIST HEAT TO AREA AT 20 MINUTE INTERVALS CONTINUE YOUR REGULAR MEDICATIONS PRESCRIBED FOLLOW UP WITH [facility] THIS WEEK FOR FURTHER CARE, RETURN TO ER IF SYMPTOMS WORSEN Scripts Cyclobenzaprine HCl (Cyclobenzaprine HCl) 10 Mg Tablet 10 MG PO Q8H PRN for SPASMS, #15 TAB 0 Refills Prov: EDU GONZÁLES DO 11/20/22 Naproxen (Naproxen) 500 Mg Tablet.dr 500 MG PO BID, #20 TAB Prov: EDU GONZÁLES DO 11/20/22 EDU GONZÁLES DO Nov 19, 2022 23:43
[2022-11-19] MEDS ORDERED: ASPIRIN 81 MG CHEW (CHILDREN'S ASA) PO ONE (23:45)
[2022-11-20 00:06] LABS: BASOPHILS # (AUTO) 0.1 10^3/uL (0.0-0.1); BASOPHILS % (AUTO) 1 % (0-10); EOSINOPHILS # (AUTO) 0.2 10^3/uL (0.0-0.3); EOSINOPHILS % (AUTO) 2 % (0-10); HEMATOCRIT 43 % (35-52); HEMOGLOBIN 14.5 g/dL (11.5-16.0); LYMPHOCYTES % (AUTO) 39 % (12-44); MEAN CORPUSCULAR HEMOGLOBIN 31 pg (25-34); MEAN CORPUSCULAR HGB CONC 34 g/dL (32-36); MEAN CORPUSCULAR VOLUME 91 fL (80-99); MEAN PLATELET VOLUME 9.6 fL (9.0-12.2); MONOCYTES # (AUTO) 0.7 10^3/uL (0.0-1.0); MONOCYTES % (AUTO) 10 % (0-12); NEUTROPHILS # (AUTO) 3.7 10^3/uL (1.8-7.8); NEUTROPHILS % (AUTO) 48 % (42-75); PLATELET COUNT 307 10^3/uL (130-400); WHITE BLOOD COUNT 7.8 10^3/uL (4.3-11.0)
[2022-11-20 00:17] LABS: ALANINE AMINOTRANSFERASE 28 U/L (0-55); ALKALINE PHOSPHATASE 77 U/L (40-136); AMYLASE 41 U/L (25-125); BILIRUBIN,TOTAL 0.2 MG/DL (0.1-1.0); BUN/CREATININE RATIO 19; CALCIUM 9.9 MG/DL (8.5-10.1); CARBON DIOXIDE 22 MMOL/L (21-32); CHLORIDE 103 MMOL/L (98-107); CREATINE KINASE 58 U/L (29-168); CREATININE SERUM 0.91 MG/DL (0.60-1.30); GFR ESTIMATED 79; GLUCOSE 304 MG/DL (70-105); LIPASE 49 U/L (8-78); MAGNESIUM 1.8 MG/DL (1.6-2.4); POTASSIUM 4.3 MMOL/L (3.6-5.0); SODIUM 139 MMOL/L (135-145); TOTAL PROTEIN 7.1 GM/DL (6.4-8.2)
[2022-11-20 00:28] LABS: FIBRIN DEGRADATION PRODUCTS 0.23 UG/ML (0.00-0.49); PROTHROMBIN TIME PATIENT 13.3 SEC (12.2-14.7)
[2022-11-20 00:32] LABS: ERYTHROCYTE SEDIMENTATION RATE 13 MM/HR (0-20)
[2022-11-20 00:37] LABS: CREATINE KINASE MB 0.6 NG/ML (<6.6); TSH (THYROID ANALYZER) 0.87 UIU/ML (0.35-4.94)
[2022-11-20 00:41] LABS: BILIRUBIN,URINE NEGATIVE (NEGATIVE); CLARITY,URINE CLEAR; COLOR,URINE OTHER; GLUCOSE, URINE (UA) 3+ (NEGATIVE); KETONES,URINE NEGATIVE (NEGATIVE); LEUKOCYTE ESTERASE ,URINE NEGATIVE (NEGATIVE); NITRITE,URINE NEGATIVE (NEGATIVE); PH,URINE 5.5 (5-9); PROTEIN,URINE NEGATIVE (NEGATIVE)
[2022-11-20] MEDS ORDERED: NAPR500T8 PO (00:54)
[2022-11-20] MEDS ORDERED: CYCL10TA25 PO (00:54)
[2022-11-20 01:00] LABS: AMPHETAMINE SCREEN, URINE NEGATIVE (NEGATIVE); BARBITURATE SCREEN URINE NEGATIVE (NEGATIVE); BENZODIAZEPINES SCREEN URINE NEGATIVE (NEGATIVE); CANNABINOID SCREEN, URINE NEGATIVE (NEGATIVE); COCAINE SCREEN URINE NEGATIVE (NEGATIVE); METHADONE STAT NEGATIVE (NEGATIVE); OPIATE SCREEN URINE NEGATIVE (NEGATIVE); OXYCODONE STAT NEGATIVE (NEGATIVE); PROPOXYPHENE STAT NEGATIVE (NEGATIVE); TRICYCLIC ANTIDEPRESSANTS SCRE POSITIVE (NEGATIVE)
[2022-11-20] MEDS ORDERED: KETOROLAC 30 MG/ML VIAL IVP ONE (01:00)
[2022-11-20] MEDS ORDERED: ORPHENADRINE 60 MG/2 ML (NORFLEX) AMP (ED ONLY) IV ONE (01:00)
[2022-11-20 01:08] LABS: BACTERIA,URINE NEGATIVE /HPF; RBC,URINE >100 /HPF; SQUAMOUS EPITHELIAL CELL,UR RARE /HPF
[2022-11-20 01:20] VITALS: BP 116/74
--- NOTE | 2022-11-20 07:39 | Diagnostic Imaging Report ---
INDICATION: 47-year-old female with chest pain. COMPARISONS: 09/17/2022 FINDINGS: Single chest shows normal heart, pleura and diaphragms. There is mild central venous congestion. Few scattered infiltrates are seen but no focal consolidations. There is no effusion or pneumothorax. Soft tissues and bony thorax are normal. IMPRESSION: Mild central venous congestion with few scattered alveolar infiltrates but no confluent consolidations. Overall no significant change. Dictated by: Dictated on workstation # [id number]
== END 2022-11-20 01:36 | disposition home or self-care (01) ==
LOC: EDUNIT# 23:31 → ER 23:33
DX: R07.89 Other chest pain (principal); E11.9 Type 2 diabetes mellitus without complications; E66.9 Obesity, unspecified; F17.210 Nicotine dependence, cigarettes, uncomplicated; Z68.39 Body mass index [BMI] 39.0-39.9, adult
CPT/HCPCS: 71045; 80053; 80306; 81000; 82150; 82550; 82553; 82947; 83690; 83735; 83874; 83880; 84443; 84484; 84703; 85025; 85379; 85610; 85652; 85730; 86141; 93005; 93041; 99284; G0480; 36415; 80320

== ENCOUNTER 2022-12-12 02:20 | Emergency (ER) | payer MEDICAID ==
[~2022-12-12] VITALS: Ht 162 cm; Wt 104.7 kg
[~2022-12-12 02:20] MED LIST changes: +CYCL10TA25 PO; +NAPR500T8 PO
[2022-12-12 02:42] LABS: BASOPHILS # (AUTO) 0.1 10^3/uL (0.0-0.1); BASOPHILS % (AUTO) 1 % (0-10); EOSINOPHILS # (AUTO) 0.2 10^3/uL (0.0-0.3); EOSINOPHILS % (AUTO) 3 % (0-10); HEMATOCRIT 44 % (35-52); HEMOGLOBIN 14.9 g/dL (11.5-16.0); LYMPHOCYTES # (AUTO) 3.3 10^3/uL (1.0-4.0); LYMPHOCYTES % (AUTO) 40 % (12-44); MEAN CORPUSCULAR HEMOGLOBIN 31 pg (25-34); MEAN CORPUSCULAR HGB CONC 34 g/dL (32-36); MEAN CORPUSCULAR VOLUME 91 fL (80-99); MEAN PLATELET VOLUME 9.4 fL (9.0-12.2); MONOCYTES # (AUTO) 0.7 10^3/uL (0.0-1.0); MONOCYTES % (AUTO) 9 % (0-12); NEUTROPHILS # (AUTO) 3.9 10^3/uL (1.8-7.8); NEUTROPHILS % (AUTO) 48 % (42-75); PLATELET COUNT 311 10^3/uL (130-400); WHITE BLOOD COUNT 8.2 10^3/uL (4.3-11.0)
[2022-12-12] MEDS ORDERED: KETOROLAC 30 MG/ML VIAL IVP ONE (02:45)
[2022-12-12 02:53] LABS: ALBUMIN 4.2 GM/DL (3.2-4.5); CHLORIDE 104 MMOL/L (98-107); POTASSIUM 3.7 MMOL/L (3.6-5.0); SODIUM 139 MMOL/L (135-145)
[2022-12-12 02:54] LABS: CALCIUM 9.6 MG/DL (8.5-10.1)
[2022-12-12 02:55] LABS: AMYLASE 40 U/L (25-125); GLUCOSE 277 MG/DL (70-105)
[2022-12-12 02:56] LABS: TOTAL PROTEIN 6.9 GM/DL (6.4-8.2)
[2022-12-12 02:57] LABS: BILIRUBIN,TOTAL 0.2 MG/DL (0.1-1.0); CARBON DIOXIDE 21 MMOL/L (21-32)
[2022-12-12 02:59] LABS: ALKALINE PHOSPHATASE 75 U/L (40-136); CREATININE SERUM 0.82 MG/DL (0.60-1.30); GFR ESTIMATED 90
[2022-12-12 03:00] LABS: BUN/CREATININE RATIO 18
[2022-12-12 03:02] LABS: ALANINE AMINOTRANSFERASE 32 U/L (0-55); MAGNESIUM 1.6 MG/DL (1.6-2.4)
[2022-12-12 03:03] LABS: CREATINE KINASE 52 U/L (29-168); LIPASE 56 U/L (8-78)
[2022-12-12 03:06] LABS: FIBRIN DEGRADATION PRODUCTS < 0.27 UG/ML (0.00-0.49); PARTIAL THROMBOPLASTIN TIME 26 SEC (24-35); PROTHROMBIN TIME PATIENT 13.5 SEC (12.2-14.7)
[2022-12-12 03:11] LABS: CREATINE KINASE MB 0.5 NG/ML (<6.6)
[2022-12-12 03:24] LABS: TSH (THYROID ANALYZER) 1.97 UIU/ML (0.35-4.94)
--- NOTE | 2022-12-12 03:26 | ED Cardiac General ---
History of Present Illness General Chief Complaint: Cardiac/General Problems Stated Complaint: CP Nursing Triage Note: PATIENT ARRIVED VIA EMS WITH COMPLAINT OF "FLUTTERING" CHEST PAIN LEFT SIDE GOING ON SINCE 1100 YESTERDAY MORNING. STATES ONGOING CHRONIC ISSUE. 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 STATES NO RELIEF. PATIENT VERBALIZED SHE HAS NOT FOLLOWED UP WITH PRIMARY PHYSICIAN NOR CARDIOLOGY. 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: No Allergies and Home Medications Allergies Coded Allergies: dapagliflozin (Verified Allergy, Unknown, 06/26/22) duloxetine (Verified Allergy, Unknown, 06/26/22) escitalopram (Verified Allergy, Unknown, 06/26/22) paroxetine (Verified Allergy, Unknown, 06/26/22) peanut (Verified Allergy, Unknown, 06/26/22) pneumococcal vaccine (Verified Allergy, Unknown, 06/26/22) Patient Home Medication List Cyclobenzaprine HCl (Cyclobenzaprine HCl) 10 Mg Tablet, 10 MG PO Q8H PRN for SPASMS Prescribed by: EDU GONZÁLES on 11/20/22 005 Enalapril Maleate (Vasotec) 20 Mg Tablet, 20 MG PO DAILY, (Reported) Entered as Reported by: HERSON HA on 02/27/12 0939 Escitalopram Oxalate (Lexapro) 10 Mg Tablet, 1 EACH PO DAILY, (Reported) Entered as Reported by: GINNA LABOY on 07/19/13 0020 Fluticasone Propionate (Allergy Relief) 50 Mcg/Actuation [place].susp, 15.8 ML NS BID Prescribed by: PHILL DOBBINS on 06/26/221903 Meclizine HCl (Meclizine HCl) 25 Mg Tablet, 25 MG PO Q6H PRN for VERTIGO Prescribed by: PHILL DOBBINS on 06/26/221903 Naproxen (Naproxen) 500 Mg Tablet.dr, 500 MG PO BID Prescribed by: EDU GONZÁLES on 11/20/2253 Omeprazole (Omeprazole) 20 Mg Capsule.dr, 20 MG PO DAILY Prescribed by: SEBASTIÁN BUTLER on 09/14/20 1705 Trimethoprim/Sulfamethoxazole (Bactrim Ds) 1 Ea Tablet, 1 EA PO BID Prescribed by: MARKEL GARCIA on 07/19/13 0130 Past Tppuscn-Oaltiy-Bykgdb Hx Patient Social History Tobacco Use?: No Use of E-Cig and/or Vaping dev: No Substance use?: No Alcohol Use?: No Immunizations Up To Date Tetanus Booster (TDap): Unknown Influenza Vaccine Up-to-Date: No; Not Current First/Initial COVID19 Vaccinat: NONE Past Medical History Surgery/Hospitalization HX: DM, HLD, DEPRESSION, ANXIETY, HTN TUBAL Surgeries: Yes (TUBAL LIGATION, EAR SURGERY, ABSCESS LANCED TO LEFT LEG) Ear Surgery, Tubal Ligation Respiratory: Yes (HAS AN INHALER) Cardiac: Yes Hypertension Neurological: Yes (BRAIN INJURY AT 8 YRS OLD) Traumatic Brain Injury 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 Disorders: No 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 oz. 99.126863gp; 39.00 BMI Method:Stated Progress/Results/Core Measures Results/Orders Lab Results Laboratory Tests Test 12/12/22 02:30 Range/Units White Blood Count 8.2 4.3-11.0 10^3/uL Red Blood Count 4.78 3.80-5.11 10^6/uL Hemoglobin 14.9 11.5-16.0 g/dL Hematocrit 44 35-52 % Mean Corpuscular Volume 91 80-99 fL Mean Corpuscular Hemoglobin 31 25-34 pg Mean Corpuscular Hemoglobin Concent 34 32-36 g/dL Red Cell Distribution Width 12.4 10.0-14.5 % Platelet Count 311 130-400 10^3/uL Mean Platelet Volume 9.4 9.0-12.2 fL Immature Granulocyte % (Auto) 0 % Neutrophils (%) (Auto) 48 42-75 % Lymphocytes (%) (Auto) 40 12-44 % Monocytes (%) (Auto) 9 0-12 % Eosinophils (%) (Auto) 3 0-10 % Basophils (%) (Auto) 1 0-10 % Neutrophils # (Auto) 3.9 1.8-7.8 10^3/uL Lymphocytes # (Auto) 3.3 1.0-4.0 10^3/uL Monocytes # (Auto) 0.7 0.0-1.0 10^3/uL Eosinophils # (Auto) 0.2 0.0-0.3 10^3/uL Basophils # (Auto) 0.1 0.0-0.1 10^3/uL Immature Granulocyte # (Auto) 0.0 0.0-0.1 10^3/uL Prothrombin Time 13.5 12.2-14.7 SEC INR Comment 1.0 0.8-1.4 Activated Partial Thromboplast Time 26 24-35 SEC D-Dimer < 0.27 0.00-0.49 UG/ML Sodium Level 139 135-145 MMOL/L Potassium Level 3.7 3.6-5.0 MMOL/L Chloride Level 104 98-107 MMOL/L Carbon Dioxide Level 21 21-32 MMOL/L Anion Gap 14 5-14 MMOL/L Blood Urea Nitrogen 15 7-18 MG/DL Creatinine 0.82 0.60-1.30 MG/DL Estimat Glomerular Filtration Rate 90 BUN/Creatinine Ratio 18 Glucose Level 277 H 70-105 MG/DL Calcium Level 9.6 8.5-10.1 MG/DL Corrected Calcium 9.4 8.5-10.1 MG/DL Magnesium Level 1.6 1.6-2.4 MG/DL Total Bilirubin 0.2 0.1-1.0 MG/DL Aspartate Amino Transf (AST/SGOT) 16 5-34 U/L Alanine Aminotransferase (ALT/SGPT) 32 0-55 U/L Alkaline Phosphatase 75 40-136 U/L Total Creatine Kinase 52 29-168 U/L Creatine Kinase MB 0.5 <6.6 NG/ML Myoglobin 19.9 10.0-92.0 NG/ML Troponin I < 0.028 <0.028 NG/ML B-Type Natriuretic Peptide < 10.0 <100.0 PG/ML Total Protein 6.9 6.4-8.2 GM/DL Albumin 4.2 3.2-4.5 GM/DL Amylase Level 40 25-125 U/L Lipase 56 8-78 U/L TSH [place] Testing 1.97 0.35-4.94 UIU/ML Serum Test, Qualitative NEGATIVE NEGATIVE Serum Alcohol < 10 <10 MG/DL My Orders Orders - EDU GONZÁLES DO Ed Iv/Invasive Line Start (12/12/22 02:23) Ekg Tracing (12/12/22 02:23) Monitor-Rhythm Ecg Trace Only (12/12/22 02:23) Alcohol (12/12/22 02:23) Amylase (12/12/22 02:23) Bnp Mary (12/12/22 02:23) Cbc With Automated Diff (12/12/22 02:23) Comprehensive Metabolic Panel (12/12/22 02:23) Creatine Kinase (12/12/22 02:23) Creatine Kinase Mb (12/12/22 02:23) Fibrin Degradation Products (12/12/22 02:23) Drug Screen Stat (Urine) (12/12/22 02:23) Hcg,Qualitative Serum (12/12/22 02:23) Lipase (12/12/22 02:23) Magnesium (12/12/22 02:23) Protime With Inr (12/12/22 02:23) Partial Thromboplastin Time (12/12/22 02:23) Thyroid Analyzer (12/12/22 02:23) Myoglobin Serum (12/12/22 02:23) Troponin I Mary (12/12/22 02:23) Ketorolac Injection (Toradol Injection) (12/12/22 02:45) Chest 1 View, Ap/Pa Only (12/12/22 02:42) Medications Given in ED Current Medications Medications Dose Ordered Sig/Stephie Route Start Time Stop Time Status Last Admin Dose Admin Ketorolac Tromethamine 30 mg ONCE ONCE IVP 12/12/22 02:45 12/12/22 02:46 DC 12/12/22 02:47 30 MG Vital Signs/I&O 12/12/22 02:21 Temp 36.9 Pulse 91 Resp 24 B/P (MAP) 117/73 (88) Pulse Ox 96 O2 Delivery Room Air Blood Pressure Mean: 88 Departure Impression Primary Impression: Left-sided chest wall pain Disposition: 01 HOME, SELF-CARE Condition: Stable Departure-Patient Inst. Decision time for Depature: 03:43 Referrals: [facility] (PCP) Primary Care Physician LOUANN VILLALOBOS APRN (Family) Primary Care Physician Patient Instructions: Costochondritis (DC) Add. Discharge Instructions: HOME, REST CONTINUE YOUR REGULAR MEDICATIONS PRESCRIBED FOLLOW UP WITH YOUR DR THIS WEEK FOR FURTHER CARE--CALL IN THE MORNING TO SCHEDULE AN APPOINTMENT All discharge instructions reviewed with patient and/or family. Voiced understanding. Scripts Ketorolac Tromethamine (Ketorolac Tromethamine) 10 Mg Tablet 10 MG PO Q6H for Pain, #15 TAB Prov: EDU GONZÁLES DO 12/12/22 EDU GONZÁLES DO Dec 12, 2022 03:26
[2022-12-12] MEDS ORDERED: KETO10TA PO (03:47)
[2022-12-12 03:55] VITALS: BP 121/68
[2022-12-12 04:36] LABS: AMPHETAMINE SCREEN, URINE NEGATIVE (NEGATIVE); BARBITURATE SCREEN URINE NEGATIVE (NEGATIVE); BENZODIAZEPINES SCREEN URINE NEGATIVE (NEGATIVE); CANNABINOID SCREEN, URINE NEGATIVE (NEGATIVE); COCAINE SCREEN URINE NEGATIVE (NEGATIVE); METHADONE STAT NEGATIVE (NEGATIVE); OPIATE SCREEN URINE NEGATIVE (NEGATIVE); OXYCODONE STAT NEGATIVE (NEGATIVE); PROPOXYPHENE STAT NEGATIVE (NEGATIVE); TRICYCLIC ANTIDEPRESSANTS SCRE POSITIVE (NEGATIVE)
--- NOTE | 2022-12-12 06:23 | Diagnostic Imaging Report ---
EXAMINATION: Chest 1 view HISTORY: Chest pain. COMPARISON: 11/19/2022. FINDINGS: The lung volumes are normal. No focal consolidation is seen. No large pleural effusion or pneumothorax is seen. The cardiomediastinal silhouette is normal in size and contour. No acute osseous abnormality is seen. IMPRESSION: 1. No acute pleuroparenchymal process. Dictated by: Dictated on workstation # [id number]
== END 2022-12-12 03:59 | disposition home or self-care (01) ==
LOC: EDUNIT# 02:20 → ER 02:21
DX: R07.89 Other chest pain (principal); E66.9 Obesity, unspecified; E11.9 Type 2 diabetes mellitus without complications; Z79.4 Long term (current) use of insulin; Z68.39 Body mass index [BMI] 39.0-39.9, adult; Z28.310 Unvaccinated for COVID-19
CPT/HCPCS: 71045; 80053; 80306; 82150; 82550; 82553; 83690; 83735; 83874; 83880; 84443; 84484; 84703; 85025; 85379; 85610; 85730; 93005; 93041; 99284; G0480; 36415; 80320

== ENCOUNTER 2023-01-11 12:35 | Emergency (ER) | payer MEDICAID ==
[~2023-01-11] VITALS: Ht 162 cm; Wt 107.0 kg
[~2023-01-11 12:35] MED LIST changes: +KETO10TA PO
[2023-01-11] MEDS ORDERED: NS IV 1000 ML 1,000 ML IV STA ×2 (12:49→14:25)
[2023-01-11 12:55] LABS: BASOPHILS % (AUTO) 1 % (0-10); EOSINOPHILS # (AUTO) 0.1 10^3/uL (0.0-0.3); EOSINOPHILS % (AUTO) 2 % (0-10); HEMATOCRIT 45 % (35-52); HEMOGLOBIN 15.1 g/dL (11.5-16.0); LYMPHOCYTES # (AUTO) 1.9 10^3/uL (1.0-4.0); LYMPHOCYTES % (AUTO) 27 % (12-44); MEAN CORPUSCULAR HEMOGLOBIN 30 pg (25-34); MEAN CORPUSCULAR HGB CONC 34 g/dL (32-36); MEAN CORPUSCULAR VOLUME 90 fL (80-99); MEAN PLATELET VOLUME 9.4 fL (9.0-12.2); MONOCYTES # (AUTO) 0.5 10^3/uL (0.0-1.0); MONOCYTES % (AUTO) 7 % (0-12); NEUTROPHILS # (AUTO) 4.5 10^3/uL (1.8-7.8); NEUTROPHILS % (AUTO) 63 % (42-75); PLATELET COUNT 299 10^3/uL (130-400); WHITE BLOOD COUNT 7.1 10^3/uL (4.3-11.0)
--- NOTE | 2023-01-11 12:55 | ED General ---
General Chief Complaint: Psych/Social Disorder Stated Complaint: HYPERTENSION | ELEVATED BLOOD SUGAR Nursing Triage Note: PT ARRIVED PER EMS, PT CALLED EMS STATES ELEVATED BS AND ELEVATED B/P. PT VERY ANXIOUS, PT STATES WAS TALKING TO SOMEONE ON DATING SITE AND BECAME VERY ANXIOUS. PT HAS SOME HYPERVENTILATION. PT FINGER STICK BS ON ARRIVAL 243. PT STATES HAS TAKEN ANXIETY MEDS LAST PM BUT NOT TODAY Source of Information: Patient Exam Limitations: No Limitations History of Present Illness Date Seen by Provider: Jan 11, 2023 Time Seen by Provider: 12:52 Initial Comments Patient is a 47-year-old female with a history of diabetes type 2, hypertension who presents ED by EMS for elevated blood sugar and elevated blood pressure. She states around 1115 started feeling extremely anxious. She was talking to a bruno on a dating site and became very anxious. She states she was hyperventilating became lightheaded and felt a burning sensation to the left side of her face. On arrival her blood sugar was 243. Patient states she has taken anxiety meds last night but none today. She does take hydroxyzine. She is currently on Jardiance, metformin and Levemir. She denies of any chest pain, shortness of breath, cough, abdominal pain, vomiting, diarrhea, visual changes. Allergies and Home Medications Allergies Coded Allergies: dapagliflozin (Verified Allergy, Unknown, 06/26/22) duloxetine (Verified Allergy, Unknown, 06/26/22) escitalopram (Verified Allergy, Unknown, 06/26/22) paroxetine (Verified Allergy, Unknown, 06/26/22) peanut (Verified Allergy, Unknown, 06/26/22) pneumococcal vaccine (Verified Allergy, Unknown, 06/26/22) Patient Home Medication List Home Medication List Reviewed: Yes Cyclobenzaprine HCl (Cyclobenzaprine HCl) 10 Mg Tablet, 10 MG PO Q8H PRN for SPASMS Prescribed by: EDU GONZÁLES on 11/20/22 0054 Enalapril Maleate (Vasotec) 20 Mg Tablet, 20 MG PO DAILY, (Reported) Entered as Reported by: HERSON HA on 02/27/12 0939 Escitalopram Oxalate (Lexapro) 10 Mg Tablet, 1 EACH PO DAILY, (Reported) Entered as Reported by: GINNA LABOY on 07/19/13 0020 Fluticasone Propionate (Allergy Relief) 50 Mcg/Actuation [place].susp, 15.8 ML NS BID Prescribed by: PHILL DOBBINS on 06/26/221903 Ketorolac Tromethamine (Ketorolac Tromethamine) 10 Mg Tablet, 10 MG PO Q6H Prescribed by: EDU GONZÁLES on 12/12/22 034 Meclizine HCl (Meclizine HCl) 25 Mg Tablet, 25 MG PO Q6H PRN for VERTIGO Prescribed by: PHILL DOBBINS on 06/26/221903 Naproxen (Naproxen) 500 Mg Tablet.dr, 500 MG PO BID Prescribed by: EDU GONZÁLES on 11/20/22 0054 Omeprazole (Omeprazole) 20 Mg Capsule.dr, 20 MG PO DAILY Prescribed by: SEBASTIÁN BUTLER on 09/14/20 170 Trimethoprim/Sulfamethoxazole (Bactrim Ds) 1 Ea Tablet, 1 EA PO BID Prescribed by: MARKEL GARCIA on 07/19/13 0130 Review of Systems Review of Systems Constitutional: No chills, No diaphoresis, No malaise, No weakness EENTM: No blurred vision, No double vision Respiratory: No cough, No dyspnea on exertion Cardiovascular: No chest pain, No edema Gastrointestinal: No abdominal pain, No nausea, No vomiting Genitourinary: No decreased output, No discharge Musculoskeletal: No back pain, No joint pain Skin: No change in color, No change in hair/nails Psychiatric/Neurological: Denies Anxiety, Denies Depressed All Other Systems Reviewed Negative Unless Noted: Yes Past Tfseufj-Ystfha-Sjhgpi Hx Immunizations Up To Date Tetanus Booster (TDap): Unknown First/Initial COVID19 Vaccinat: NONE Past Medical History Surgery/Hospitalization HX: DM, HLD, DEPRESSION, ANXIETY, HTN TUBAL Surgeries: Yes (TUBAL LIGATION, EAR SURGERY, ABSCESS LANCED TO LEFT LEG) Ear Surgery, Tubal Ligation Respiratory: Yes (HAS AN INHALER) Cardiac: Yes Hypertension Neurological: Yes (BRAIN INJURY AT 8 YRS OLD) Traumatic Brain Injury 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 Disorders: No 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 oz. 99.454380vp; 40.00 BMI Method:Stated General Appearance: Mild Distress Eyes: Bilateral Eye Normal Inspection, Bilateral Eye PERRL, Bilateral Eye EOMI HEENT: PERRL/EOMI, TMs Normal, Normal ENT Inspection, Pharynx Normal Neck: Full Range of Motion, Normal Inspection, Non Tender Respiratory: Chest Non Tender, Lungs Clear, Normal Breath Sounds, No Accessory Muscle Use Cardiovascular: Regular Rate, Rhythm, No Edema, No Gallop, No JVD, No Murmur Gastrointestinal: Normal Bowel Sounds, No Organomegaly, No Pulsatile Mass Back: Normal Inspection, No CVA Tenderness, No Vertebral Tenderness Extremity: Normal Capillary Refill, Normal Inspection, Normal Range of Motion Neurologic/Psychiatric: Alert, Oriented x3, No Motor/Sensory Deficits, Normal Mood/Affect, sample patternmaker II-XII Norm as Tested, Other (Anxious) Skin: Normal Color, Warm/Dry Progress/Results/Core Measures Suspected Sepsis SIRS Temperature: Pulse: 92 Respiratory Rate: 24 Laboratory Tests 01/11/23 12:40: White Blood Count 7.1 Blood Pressure 186 /96 Mean: 126 Laboratory Tests 01/11/23 12:40: Creatinine 0.71, Platelet Count 299, Total Bilirubin 0.2 Results/Orders Lab Results Laboratory Tests Test 01/11/23 12:40 01/11/23 13:52 01/11/23 14:28 Range/Units White Blood Count 7.1 4.3-11.0 10^3/uL Red Blood Count 4.98 3.80-5.11 10^6/uL Hemoglobin 15.1 11.5-16.0 g/dL Hematocrit 45 35-52 % Mean Corpuscular Volume 90 80-99 fL Mean Corpuscular Hemoglobin 30 25-34 pg Mean Corpuscular Hemoglobin Concent 34 32-36 g/dL Red Cell Distribution Width 12.5 10.0-14.5 % Platelet Count 299 130-400 10^3/uL Mean Platelet Volume 9.4 9.0-12.2 fL Immature Granulocyte % (Auto) 1 % Neutrophils (%) (Auto) 63 42-75 % Lymphocytes (%) (Auto) 27 12-44 % Monocytes (%) (Auto) 7 0-12 % Eosinophils (%) (Auto) 2 0-10 % Basophils (%) (Auto) 1 0-10 % Neutrophils # (Auto) 4.5 1.8-7.8 10^3/uL Lymphocytes # (Auto) 1.9 1.0-4.0 10^3/uL Monocytes # (Auto) 0.5 0.0-1.0 10^3/uL Eosinophils # (Auto) 0.1 0.0-0.3 10^3/uL Basophils # (Auto) 0.0 0.0-0.1 10^3/uL Immature Granulocyte # (Auto) 0.0 0.0-0.1 10^3/uL Sodium Level 142 135-145 MMOL/L Potassium Level 3.9 3.6-5.0 MMOL/L Chloride Level 106 98-107 MMOL/L Carbon Dioxide Level 20 L 21-32 MMOL/L Anion Gap 16 H 5-14 MMOL/L Blood Urea Nitrogen 18 7-18 MG/DL Creatinine 0.71 0.60-1.30 MG/DL Estimat Glomerular Filtration Rate 107 BUN/Creatinine Ratio 25 Glucose Level 234 H 70-105 MG/DL Calcium Level 10.1 8.5-10.1 MG/DL Corrected Calcium 10.0 8.5-10.1 MG/DL Total Bilirubin 0.2 0.1-1.0 MG/DL Aspartate Amino Transf (AST/SGOT) 20 5-34 U/L Alanine Aminotransferase (ALT/SGPT) 29 0-55 U/L Alkaline Phosphatase 82 40-136 U/L Total Protein 7.2 6.4-8.2 GM/DL Albumin 4.1 3.2-4.5 GM/DL Lipase 48 8-78 U/L Beta-Hydroxybutyrate (Chem panel) 0.80 H 0.00-0.27 MMOL/L Serum Alcohol < 10 <10 MG/DL Urine Color YELLOW Urine Clarity CLEAR Urine pH 6.0 5-9 Urine Specific [place] 1.015 L 1.016-1.022 Urine Protein NEGATIVE NEGATIVE Urine Glucose (UA) 3+ H NEGATIVE Urine Ketones 1+ H NEGATIVE Urine Nitrite NEGATIVE NEGATIVE Urine Bilirubin NEGATIVE NEGATIVE Urine Urobilinogen 0.2 < = 1.0 MG/DL Urine Leukocyte Esterase NEGATIVE NEGATIVE Urine RBC (Auto) NEGATIVE NEGATIVE Urine RBC NONE /HPF Urine WBC NONE /HPF Urine Squamous Epithelial Cells RARE /HPF Urine Crystals NONE /LPF Urine Bacteria NEGATIVE /HPF Urine Casts NONE /LPF Urine Mucus NEGATIVE /LPF Urine Culture Indicated NO Urine Opiates Screen NEGATIVE NEGATIVE Urine Oxycodone Screen NEGATIVE NEGATIVE Urine Methadone Screen NEGATIVE NEGATIVE Urine Propoxyphene Screen NEGATIVE NEGATIVE Urine Barbiturates Screen NEGATIVE NEGATIVE Ur Tricyclic Antidepressants Screen POSITIVE H NEGATIVE Urine Phencyclidine Screen NEGATIVE NEGATIVE Urine Amphetamines Screen NEGATIVE NEGATIVE Urine Methamphetamines Screen NEGATIVE NEGATIVE Urine Benzodiazepines Screen NEGATIVE NEGATIVE Urine Cocaine Screen NEGATIVE NEGATIVE Urine Cannabinoids Screen NEGATIVE NEGATIVE Glucometer 150 H 70-110 MG/DL My Orders Orders - NIKKI HA Cbc With Automated Diff (01/11/23 12:49) Comprehensive Metabolic Panel (01/11/23 12:49) Lipase (01/11/23 12:49) Alcohol (01/11/23 12:49) Ua Culture If Indicated (01/11/23 12:49) Drug Screen Stat (Urine) (01/11/23 12:49) Beta Hydroxybutyrate (01/11/23 12:49) Lorazepam Injection (Ativan Injection) (01/11/23 13:00) Ns Iv 1000 Ml (Sodium Chloride 0.9%) (01/11/23 12:49) Insulin (Regular) Human (Novolin R (Per (01/11/23 14:25) Ns Iv 1000 Ml (Sodium Chloride 0.9%) (01/11/23 14:25) Medications Given in ED Current Medications Medications Dose Ordered Sig/Stephie Route Start Time Stop Time Status Last Admin Dose Admin Lorazepam 1 mg ONCE ONCE IVP 01/11/23 13:00 01/11/23 13:01 DC 01/11/23 12:57 1 MG Vital Signs/I&O 01/11/23 01/11/23 12:44 16:27 Temp 36.4 Pulse 92 82 Resp 24 16 B/P (MAP) 186/96 (126) 138/79 Pulse Ox 99 98 O2 Delivery Room Air Capillary Refill : Less Than 3 Seconds Blood Pressure Mean: 126 Departure Communication (PCP) Reviewed previous ER visits, H&P, lab testing. Patient is a 47-year-old female presents ED for anxiety, elevated blood pressure and blood sugar. Patient states she is on metoprolol for her blood pressure. She is on Jardiance, metformin and Levemir for her type 2 diabetes. Reviewed previous ER visits, H&P, lab testing. Differential diagnosis of anxiety, hyperglycemia, hypertensive urgency. Patient blood pressure 186/96. She was hyperventilating complaining of lightheadedness. Patient blood sugar 234. Denies of any chest pain, shortness of breath suggesting cardiac etiology. CBC, CMP, beta hydroxybutyrate was ordered. CBC was grossly unremarkable. CMP showed anion gap of 16 with normal kidney function. Blood sugar 234. Beta hydroxybutyrate of 0.80. Not significantly high. She did have some small amount of ketones in her urine. No evidence of infection. Possible mild DKA. She was given a liter of fluid with improvement of her blood sugar to 150. She was given a second liter of fluid but did not receive any regular insulin secondary to the improving blood sugar. Mild DKA may be secondary to more of a dehydration. Heart rate improved. Blood pressure improved. Blood sugar improved. She was given Ativan secondary to her anxiety episode. This episode seemed to stem secondary to talking to somebody on a dating website. She had no suicidal or homicidal thoughts. No drug use or alcohol use patient symptoms continue improved. She feels much better at this time and will be discharged. Did not think mission is needed at this time for the mild DKA. Recommend continue monitoring blood sugar. Follow-up with your PCP in the next 2 to 3 days for reevaluation of lab work. If any worsening symptoms return back to ED Impression Primary Impression: DKA (diabetic ketoacidosis) Additional Impression: Anxiety Disposition: 01 HOME, SELF-CARE Condition: Stable Departure-Patient Inst. Decision time for Depature: 15:26 Referrals: [facility]/ (PCP) Primary Care Physician LOUANN VILLALOBOS APRN (Family) Primary Care Physician Patient Instructions: Diabetic Ketoacidosis NIKKI HA Jan 11, 2023 12:54
[2023-01-11] MEDS ORDERED: LORazepam INJ 2 MG/ML (ATIVAN) VIAL IVP ONE (13:00)
[2023-01-11 13:01] LABS: ALBUMIN 4.1 GM/DL (3.2-4.5); CHLORIDE 106 MMOL/L (98-107); POTASSIUM 3.9 MMOL/L (3.6-5.0); SODIUM 142 MMOL/L (135-145)
[2023-01-11 13:02] LABS: CALCIUM 10.1 MG/DL (8.5-10.1)
[2023-01-11 13:04] LABS: GLUCOSE 234 MG/DL (70-105); TOTAL PROTEIN 7.2 GM/DL (6.4-8.2)
[2023-01-11 13:05] LABS: BILIRUBIN,TOTAL 0.2 MG/DL (0.1-1.0); CARBON DIOXIDE 20 MMOL/L (21-32)
[2023-01-11 13:07] LABS: ALKALINE PHOSPHATASE 82 U/L (40-136); CREATININE SERUM 0.71 MG/DL (0.60-1.30); GFR ESTIMATED 107
[2023-01-11 13:08] LABS: BUN/CREATININE RATIO 25
[2023-01-11 13:10] LABS: ALANINE AMINOTRANSFERASE 29 U/L (0-55)
[2023-01-11 13:11] LABS: LIPASE 48 U/L (8-78)
[2023-01-11 13:58] LABS: BILIRUBIN,URINE NEGATIVE (NEGATIVE); CLARITY,URINE CLEAR; COLOR,URINE YELLOW; GLUCOSE, URINE (UA) 3+ (NEGATIVE); KETONES,URINE 1+ (NEGATIVE); LEUKOCYTE ESTERASE ,URINE NEGATIVE (NEGATIVE); NITRITE,URINE NEGATIVE (NEGATIVE); PROTEIN,URINE NEGATIVE (NEGATIVE)
[2023-01-11 14:07] LABS: BACTERIA,URINE NEGATIVE /HPF; SQUAMOUS EPITHELIAL CELL,UR RARE /HPF
[2023-01-11 14:12] LABS: AMPHETAMINE SCREEN, URINE NEGATIVE (NEGATIVE); BARBITURATE SCREEN URINE NEGATIVE (NEGATIVE); BENZODIAZEPINES SCREEN URINE NEGATIVE (NEGATIVE); CANNABINOID SCREEN, URINE NEGATIVE (NEGATIVE); COCAINE SCREEN URINE NEGATIVE (NEGATIVE); METHADONE STAT NEGATIVE (NEGATIVE); OPIATE SCREEN URINE NEGATIVE (NEGATIVE); OXYCODONE STAT NEGATIVE (NEGATIVE); PROPOXYPHENE STAT NEGATIVE (NEGATIVE); TRICYCLIC ANTIDEPRESSANTS SCRE POSITIVE (NEGATIVE)
[2023-01-11] MEDS ORDERED: inSUlin (REGULAR) HUMAN 1 UNIT/0.01 ML (CHARGE PER UNIT) SC STA (14:25)
[2023-01-11 16:27] VITALS: BP 138/79
== END 2023-01-11 16:35 | disposition home or self-care (01) ==
LOC: EDUNIT# 12:35 → ER 12:36
DX: E11.10 Type 2 diabetes mellitus with ketoacidosis without coma (principal); I10 Essential (primary) hypertension; F41.9 Anxiety disorder, unspecified; E66.9 Obesity, unspecified; Z79.899 Other long term (current) drug therapy; Z79.84 Long term (current) use of oral hypoglycemic drugs; Z68.41 Body mass index [BMI] 40.0-44.9, adult
CPT/HCPCS: 80053; 80306; 81000; 82010; 82947; 83690; 85025; 99284; G0480; 36415; 80320

== ENCOUNTER 2023-01-12 21:14 | Emergency (ER) | payer MEDICAID ==
[~2023-01-12] VITALS: Ht 162.5 cm; Wt 107.0 kg
--- NOTE | 2023-01-12 21:51 | ED General ---
General Chief Complaint: Cardiac/General Problems Stated Complaint: FLUTTERING IN CHEST Nursing Triage Note: BROUGHT IN BY [facility] FOR C/O CHEST FLUTTERING, ANXIETY. Source of Information: Patient, EMS, Old Records Exam Limitations: No Limitations History of Present Illness Date Seen by Provider: Jan 12, 2023 Time Seen by Provider: 21:32 Initial Comments This 47-year-old woman presents to the emergency room via EMS with vague complaints of warmth and tingling across her chest. She has some chest discomfort with tenderness to palpation. She had been reading her discharge instructions from her ER visit yesterday and became anxious just prior to symptoms starting. She takes hydroxyzine 10 mg 4 anxiety. She had been prescribed Lexapro for anxiety and for suspected perimenopausal syndrome but discontinued Lexapro because it made her feel jittery. She presently is seeing Triny Villalobos at the [facility] clinic but has put in a provider change request. Patient comments that she has been seen in the emergency room several times over the past year for similar symptoms without any significant diagnostic findings except anxiety. Chart from yesterday's visit was reviewed. Allergies and Home Medications Allergies Coded Allergies: dapagliflozin (Verified Allergy, Unknown, 06/26/22) duloxetine (Verified Allergy, Unknown, 06/26/22) escitalopram (Verified Allergy, Unknown, 06/26/22) paroxetine (Verified Allergy, Unknown, 06/26/22) peanut (Verified Allergy, Unknown, 06/26/22) pneumococcal vaccine (Verified Allergy, Unknown, 06/26/22) Patient Home Medication List Home Medication List Reviewed: Yes Cyclobenzaprine HCl (Cyclobenzaprine HCl) 10 Mg Tablet, 10 MG PO Q8H PRN for SPASMS Prescribed by: EDU GONZÁLES on 11/20/22 0054 Enalapril Maleate (Vasotec) 20 Mg Tablet, 20 MG PO DAILY, (Reported) Entered as Reported by: HERSON HA on 02/27/12 0939 Escitalopram Oxalate (Lexapro) 10 Mg Tablet, 1 EACH PO DAILY, (Reported) Entered as Reported by: GINNA LABOY on 07/19/13 0020 Fluticasone Propionate (Allergy Relief) 50 Mcg/Actuation [place].susp, 15.8 ML NS BID Prescribed by: PHILL DOBBINS on 06/26/22 1904 Ketorolac Tromethamine (Ketorolac Tromethamine) 10 Mg Tablet, 10 MG PO Q6H Prescribed by: EDU GONZÁLES on 12/12/22 0347 Meclizine HCl (Meclizine HCl) 25 Mg Tablet, 25 MG PO Q6H PRN for VERTIGO Prescribed by: PHILL DOBBINS on 06/26/22 1904 Naproxen (Naproxen) 500 Mg Tablet.dr, 500 MG PO BID Prescribed by: EDU GONZÁLES on 11/20/22 0054 Omeprazole (Omeprazole) 20 Mg Capsule.dr, 20 MG PO DAILY Prescribed by: SEBASTIÁN BUTLER on 09/14/20 1705 Trimethoprim/Sulfamethoxazole (Bactrim Ds) 1 Ea Tablet, 1 EA PO BID Prescribed by: MARKEL GARCIA on 07/19/13 0130 Review of Systems Review of Systems Constitutional: no symptoms reported EENTM: no symptoms reported Respiratory: no symptoms reported Cardiovascular: see HPI Gastrointestinal: no symptoms reported Genitourinary: see HPI (Irregular cycles with possible perimenopausal syndrome) : No Musculoskeletal: see HPI Skin: no symptoms reported Psychiatric/Neurological: See HPI Hematologic/Lymphatic: No Symptoms Reported Immunological/Allergic: no symptoms reported Past Pnafbsa-Dkqqrt-Elkokp Hx Patient Social History Tobacco Use?: No Substance use?: No Alcohol Use?: No Pt feels they are or have been: No Immunizations Up To Date Tetanus Booster (TDap): Unknown First/Initial COVID19 Vaccinat: NONE Second COVID19 Vaccination Nikita: NONE Third COVID19 Vaccination Date: NONE Past Medical History Surgery/Hospitalization HX: DM, HLD, DEPRESSION, ANXIETY, HTN, TBI, SCHIZOPHRENIA TUBAL, EAR Surgeries: Yes (TUBAL LIGATION, EAR SURGERY, ABSCESS LANCED TO LEFT LEG) Ear Surgery, Tubal Ligation Respiratory: Yes (HAS AN INHALER) Cardiac: Yes Hypertension Neurological: Yes (BRAIN INJURY AT 8 YRS OLD) Traumatic Brain Injury Last Menstrual Period: Dec 12, 2022 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 Disorders: 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 oz. 99.508749dl; 40.00 BMI Method:Stated General Appearance: No Apparent Distress, WD/WN, Obese HEENT: PERRL/EOMI, Normal ENT Inspection Neck: Normal Inspection Respiratory: Lungs Clear, Normal Breath Sounds, No Accessory Muscle Use, No Respiratory Distress, Other (Left anterior chest TTP) Cardiovascular: Regular Rate, Rhythm, No Edema, No Murmur Gastrointestinal: Non Tender, Soft; No Distended Extremity: Normal Inspection, No Pedal Edema Neurologic/Psychiatric: Alert, Oriented x3, No Motor/Sensory Deficits, metal tester II- XII Norm as Tested, Other (mildly anxious) Skin: Normal Color, Warm/Dry Progress/Results/Core Measures Suspected Sepsis SIRS Temperature: Pulse: 101 Respiratory Rate: 13 Laboratory Tests 01/12/23 21:18: White Blood Count 8.2 Blood Pressure 152 /105 Mean: 121 Laboratory Tests 01/12/23 21:18: Creatinine 0.77, Platelet Count 308 Results/Orders Lab Results Laboratory Tests Test 01/12/23 21:18 Range/Units White Blood Count 8.2 4.3-11.0 10^3/uL Red Blood Count 4.80 3.80-5.11 10^6/uL Hemoglobin 14.8 11.5-16.0 g/dL Hematocrit 44 35-52 % Mean Corpuscular Volume 91 80-99 fL Mean Corpuscular Hemoglobin 31 25-34 pg Mean Corpuscular Hemoglobin Concent 34 32-36 g/dL Red Cell Distribution Width 12.5 10.0-14.5 % Platelet Count 308 130-400 10^3/uL Mean Platelet Volume 9.6 9.0-12.2 fL Immature Granulocyte % (Auto) 1 % Neutrophils (%) (Auto) 50 42-75 % Lymphocytes (%) (Auto) 38 12-44 % Monocytes (%) (Auto) 8 0-12 % Eosinophils (%) (Auto) 2 0-10 % Basophils (%) (Auto) 1 0-10 % Neutrophils # (Auto) 4.1 1.8-7.8 10^3/uL Lymphocytes # (Auto) 3.1 1.0-4.0 10^3/uL Monocytes # (Auto) 0.7 0.0-1.0 10^3/uL Eosinophils # (Auto) 0.2 0.0-0.3 10^3/uL Basophils # (Auto) 0.1 0.0-0.1 10^3/uL Immature Granulocyte # (Auto) 0.1 0.0-0.1 10^3/uL Sodium Level 141 135-145 MMOL/L Potassium Level 4.1 3.6-5.0 MMOL/L Chloride Level 107 98-107 MMOL/L Carbon Dioxide Level 18 L 21-32 MMOL/L Anion Gap 16 H 5-14 MMOL/L Blood Urea Nitrogen 19 H 7-18 MG/DL Creatinine 0.77 0.60-1.30 MG/DL Estimat Glomerular Filtration Rate 97 BUN/Creatinine Ratio 25 Glucose Level 225 H 70-105 MG/DL Calcium Level 9.7 8.5-10.1 MG/DL Magnesium Level 1.8 1.6-2.4 MG/DL Troponin I < 0.028 <0.028 NG/ML TSH Mico Testing 1.55 0.35-4.94 UIU/ML My Orders Orders - SEBASTIÁN HARDEN MD Ed Iv/Invasive Line Start (01/12/23 21:47) Ekg Tracing (01/12/23 21:47) Monitor-Rhythm Ecg Trace Only (01/12/23 21:47) Basic Metabolic Panel (01/12/23 21:47) Cbc With Automated Diff (01/12/23 21:47) Magnesium (01/12/23 21:47) Thyroid Analyzer (01/12/23 21:47) Troponin I Mary (01/12/23 21:47) Chest 1 View, Ap/Pa Only (01/12/23 21:47) Ketorolac Injection (Toradol Injection) (01/12/23 22:00) Medications Given in ED Vital Signs/I&O 01/12/23 01/12/23 21:14 23:11 Temp 37.2 36.5 Pulse 101 93 Resp 13 16 B/P (MAP) 152/105 (121) 111/75 Pulse Ox 95 96 O2 Delivery Room Air Room Air Capillary Refill : Less Than 3 Seconds Blood Pressure Mean: 121 Progress Note : Progress Note Patient was interviewed and examined. Work-up was pursued including chest x- ray, EKG, CBC, BMP, troponin, magnesium, and thyroid analyzer. All labs were reviewed by me in their entirety. There was an abnormal carbon dioxide of 18. Labs are otherwise unremarkable. Patient was treated with Toradol with improvement in her chest discomfort. Chest x-ray was unremarkable. EKG demonstrated normal sinus rhythm with no adverse abnormalities. Vital signs remained stable throughout her ER stay. She was discharged in stable condition. See discharge instructions for further discussion. ECG Initial ECG Impression Date: Jan 12, 2023 Initial ECG Impression Time: 21:18 Initial ECG Rate: 99 Initial ECG Rhythm: Normal Sinus Initial ECG Intervals: Normal Initial ECG Impression: Normal Comment Normal sinus rhythm with no ST elevation or depression. No abnormal intervals or axis deviation. Diagnostic Imaging Diagonstic Imaging: Xray Plain Films/CT/US/NM/MRI: chest Comments Chest x-ray was viewed and interpreted by me. Radiologist report not yet available. No pneumothorax, infiltrate, or consolidation was appreciated. No acute abnormalities were observed. Departure Impression Primary Impression: Anxiety Additional Impressions: Left-sided chest wall pain Palpitation Perimenopausal symptoms Disposition: 01 HOME, SELF-CARE Condition: Improved Departure-Patient Inst. Referrals: [facility] (PCP) Primary Care Physician LOUANN VILLALOBOS APRN (Family) Primary Care Physician Patient Instructions: Palpitations Add. Discharge Instructions: For pain you may take Tylenol (acetaminophen) up to 1000 mg every 6 hours as needed. You may additionally take ibuprofen up to 600 mg every 6 hours as needed for pain not controlled by Tylenol. Please follow-up with your primary care provider soon as possible to discuss further work-up and treatment. There are other treatment options for symptoms related to changes of menopause. Some of your symptoms may be attributed to transitioning into menopause. You may continue using hydroxyzine as prescribed for treatment of anxiety. Return to the ER if you have worsening symptoms despite following these instructions. All discharge instructions reviewed with patient and/or family. Voiced understanding. Copy Copies To 1: [facility]/SEBASTIÁN VALENTE MD Jan 12, 2023 21:51
[2023-01-12 21:54] LABS: BASOPHILS # (AUTO) 0.1 10^3/uL (0.0-0.1); BASOPHILS % (AUTO) 1 % (0-10); EOSINOPHILS # (AUTO) 0.2 10^3/uL (0.0-0.3); EOSINOPHILS % (AUTO) 2 % (0-10); HEMATOCRIT 44 % (35-52); HEMOGLOBIN 14.8 g/dL (11.5-16.0); LYMPHOCYTES # (AUTO) 3.1 10^3/uL (1.0-4.0); LYMPHOCYTES % (AUTO) 38 % (12-44); MEAN CORPUSCULAR HEMOGLOBIN 31 pg (25-34); MEAN CORPUSCULAR HGB CONC 34 g/dL (32-36); MEAN CORPUSCULAR VOLUME 91 fL (80-99); MEAN PLATELET VOLUME 9.6 fL (9.0-12.2); MONOCYTES # (AUTO) 0.7 10^3/uL (0.0-1.0); MONOCYTES % (AUTO) 8 % (0-12); NEUTROPHILS # (AUTO) 4.1 10^3/uL (1.8-7.8); NEUTROPHILS % (AUTO) 50 % (42-75); PLATELET COUNT 308 10^3/uL (130-400); WHITE BLOOD COUNT 8.2 10^3/uL (4.3-11.0)
[2023-01-12] MEDS ORDERED: KETOROLAC 30 MG/ML VIAL IVP ONE (22:00)
[2023-01-12 22:07] LABS: BUN/CREATININE RATIO 25; CALCIUM 9.7 MG/DL (8.5-10.1); CARBON DIOXIDE 18 MMOL/L (21-32); CHLORIDE 107 MMOL/L (98-107); CREATININE SERUM 0.77 MG/DL (0.60-1.30); GFR ESTIMATED 97; GLUCOSE 225 MG/DL (70-105); MAGNESIUM 1.8 MG/DL (1.6-2.4); POTASSIUM 4.1 MMOL/L (3.6-5.0); SODIUM 141 MMOL/L (135-145)
[2023-01-12 22:27] LABS: TSH (THYROID ANALYZER) 1.55 UIU/ML (0.35-4.94)
[2023-01-12 23:11] VITALS: BP 111/75
--- NOTE | 2023-01-13 06:32 | Diagnostic Imaging Report ---
EXAMINATION: Chest 1 view HISTORY: Chest pain COMPARISON: 12/12/2022 FINDINGS: Heart size and pulmonary vasculature are normal. The lungs are clear without consolidation, pleural effusion, or pneumothorax. The osseous structures are intact. IMPRESSION: 1. No acute radiographic abnormality in the chest. 2. Agree with preliminary interpretation. Dictated by: Dictated on workstation # [id number]
== END 2023-01-12 23:14 | disposition home or self-care (01) ==
LOC: EDUNIT# 21:14 → ER 21:16
DX: F41.9 Anxiety disorder, unspecified (principal); R07.89 Other chest pain; R00.2 Palpitations; E66.9 Obesity, unspecified; Z68.41 Body mass index [BMI] 40.0-44.9, adult; Z28.310 Unvaccinated for COVID-19
CPT/HCPCS: 36415; 71045; 80048; 83735; 84443; 84484; 85025; 93005; 93041

== ENCOUNTER 2023-03-15 23:35 | Emergency (ER) | payer MEDICAID ==
[~2023-03-15] VITALS: Ht 162.6 cm; Wt 106.6 kg
[2023-03-15] MEDS ORDERED: [UNRECOGNIZED DRUG - CODE] (23:44)
[2023-03-15] MEDS ORDERED: GEMF600T88 (23:44)
[2023-03-15] MEDS ORDERED: MTP25TSR (23:44)
[2023-03-15] MEDS ORDERED: GLIP5TAB13 (23:44)
[2023-03-15] MEDS ORDERED: OLME20TA24 (23:44)
[2023-03-15] MEDS ORDERED: METF-397 (23:44)
[2023-03-15] MEDS ORDERED: INSU100I88 (23:44)
[2023-03-15] MEDS ORDERED: ASPIRIN 81 MG CHEW (CHILDREN'S ASA) PO ONE (23:45)
[2023-03-15] MEDS ORDERED: KETOROLAC 30 MG/ML VIAL IVP ONE (23:45)
--- NOTE | 2023-03-15 23:55 | ED Chest Pain ---
General Chief Complaint: Chest Wall Stated Complaint: CP Nursing Triage Note: brought in by [facility] for intermittant reproducable left sided chest pain x2 days. Source: patient, old records History of Present Illness Date Seen by Provider: Mar 15, 2023 Time Seen by Provider: 23:37 Initial Comments PT ARRIVES VIA EMS FROM HOME GETS OFF EMS COT AND WALKS TO ER CART AND GETS ONTO ER CART ON HER OWN. Allergies and Home Medications Allergies Coded Allergies: dapagliflozin (Verified Allergy, Unknown, 06/26/22) duloxetine (Verified Allergy, Unknown, 06/26/22) escitalopram (Verified Allergy, Unknown, 06/26/22) paroxetine (Verified Allergy, Unknown, 06/26/22) peanut (Verified Allergy, Unknown, 06/26/22) pneumococcal vaccine (Verified Allergy, Unknown, 06/26/22) Patient Home Medication List Blood Sugar Diagnostic ([employer] Ultra Test Strips) 1 Each Strip, (Reported) Entered as Reported by: SABRA ALONSO on 03/15/232343 Last Action: New Order Cyclobenzaprine HCl (Cyclobenzaprine HCl) 10 Mg Tablet, 10 MG PO Q8H PRN for SPASMS Prescribed by: EDU GONZÁLES on 11/20/22 0054 Enalapril Maleate (Vasotec) 20 Mg Tablet, 20 MG PO DAILY, (Reported) Entered as Reported by: HERSON HA on 02/27/12 0939 Escitalopram Oxalate (Lexapro) 10 Mg Tablet, 1 EACH PO DAILY, (Reported) Entered as Reported by: GINNA LABOY on 07/19/13 0020 Fluticasone Propionate (Allergy Relief) 50 Mcg/Actuation [place].susp, 15.8 ML NS BID Prescribed by: PHILL DOBBINS on 06/26/22 1904 Gemfibrozil (Gemfibrozil) 600 Mg Tablet, (Reported) Entered as Reported by: SABRA ALONSO on 03/15/232343 Last Action: New Order Glipizide (Glipizide) 5 Mg Tablet, (Reported) Entered as Reported by: SABRA ALONSO on 03/15/232343 Last Action: New Order Insulin Detemir (Levemir Flexpen) 100 Unit/Ml (3 Ml) Insuln.pen, (Reported) Entered as Reported by: SABRA ALONSO on 03/15/232343 Last Action: New Order Ketorolac Tromethamine (Ketorolac Tromethamine) 10 Mg Tablet, 10 MG PO Q6H Prescribed by: EDU GONZÁLES on 12/12/22 0347 Meclizine HCl (Meclizine HCl) 25 Mg Tablet, 25 MG PO Q6H PRN for VERTIGO Prescribed by: PHILL DOBBINS on 06/26/22 1904 Metformin HCl (Metformin HCl) 500 Mg Tablet, (Reported) Entered as Reported by: SABRA ALONSO on 03/15/232343 Last Action: New Order Metoprolol Succinate (Metoprolol Succinate) 25 Mg Tab.er.24h, (Reported) Entered as Reported by: SABAR ALONSO on 03/15/232343 Last Action: New Order Naproxen (Naproxen) 500 Mg Tablet.dr, 500 MG PO BID Prescribed by: EDU GONZÁLES on 11/20/22 0054 Olmesartan Medoxomil (Olmesartan Medoxomil) 20 Mg Tablet, (Reported) Entered as Reported by: SABRA ALONSO on 03/15/232343 Last Action: New Order Omeprazole (Omeprazole) 20 Mg Capsule.dr, 20 MG PO DAILY Prescribed by: SEBASTIÁN BUTLER on 09/14/20 1705 Trimethoprim/Sulfamethoxazole (Bactrim Ds) 1 Ea Tablet, 1 EA PO BID Prescribed by: MARKEL GARCIA on 07/19/13 0130 Past Ysngjri-Nrmkzd-Getzbd Hx Patient Social History Tobacco Use?: Yes Substance use?: No Alcohol Use?: No Pt feels they are or have been: No Immunizations Up To Date Tetanus Booster (TDap): Unknown First/Initial COVID19 Vaccinat: NONE Second COVID19 Vaccination Nikita: NONE Third COVID19 Vaccination Date: NONE Past Medical History Surgery/Hospitalization HX: DM, HLD, DEPRESSION, ANXIETY, HTN, TBI, SCHIZOPHRENIA TUBAL, EAR Surgeries: Yes (TUBAL LIGATION, EAR SURGERY, ABSCESS LANCED TO LEFT LEG) Ear Surgery, Tubal Ligation Respiratory: Yes (HAS AN INHALER) Cardiac: Yes Hypertension Neurological: Yes (BRAIN INJURY AT 8 YRS OLD) Traumatic Brain Injury Last Menstrual Period: February 01, 2023 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 oz. 99.284348tu; 40.00 BMI Method:Stated Progress/Results/Core Measures Results/Orders Lab Results Laboratory Tests Test 03/15/23 23:45 Range/Units White Blood Count 7.4 4.3-11.0 10^3/uL Red Blood Count 4.81 3.80-5.11 10^6/uL Hemoglobin 14.6 11.5-16.0 g/dL Hematocrit 43 35-52 % Mean Corpuscular Volume 90 80-99 fL Mean Corpuscular Hemoglobin 30 25-34 pg Mean Corpuscular Hemoglobin Concent 34 32-36 g/dL Red Cell Distribution Width 12.6 10.0-14.5 % Platelet Count 285 130-400 10^3/uL Mean Platelet Volume 9.3 9.0-12.2 fL Immature Granulocyte % (Auto) 0 % Neutrophils (%) (Auto) 44 42-75 % Lymphocytes (%) (Auto) 42 12-44 % Monocytes (%) (Auto) 10 0-12 % Eosinophils (%) (Auto) 3 0-10 % Basophils (%) (Auto) 1 0-10 % Neutrophils # (Auto) 3.3 1.8-7.8 10^3/uL Lymphocytes # (Auto) 3.1 1.0-4.0 10^3/uL Monocytes # (Auto) 0.7 0.0-1.0 10^3/uL Eosinophils # (Auto) 0.2 0.0-0.3 10^3/uL Basophils # (Auto) 0.1 0.0-0.1 10^3/uL Immature Granulocyte # (Auto) 0.0 0.0-0.1 10^3/uL Prothrombin Time 12.9 12.2-14.7 SEC INR Comment 1.0 0.8-1.4 Activated Partial Thromboplast Time 25 24-35 SEC D-Dimer 0.32 0.00-0.49 UG/ML Sodium Level 139 135-145 MMOL/L Potassium Level 4.2 3.6-5.0 MMOL/L Chloride Level 105 98-107 MMOL/L Carbon Dioxide Level 22 21-32 MMOL/L Anion Gap 12 5-14 MMOL/L Blood Urea Nitrogen 18 7-18 MG/DL Creatinine 0.85 0.60-1.30 MG/DL Estimat Glomerular Filtration Rate 86 BUN/Creatinine Ratio 21 Glucose Level 222 H 70-105 MG/DL Calcium Level 9.8 8.5-10.1 MG/DL Corrected Calcium 9.9 8.5-10.1 MG/DL Magnesium Level 1.8 1.6-2.4 MG/DL Total Bilirubin 0.2 0.1-1.0 MG/DL Aspartate Amino Transf (AST/SGOT) 16 5-34 U/L Alanine Aminotransferase (ALT/SGPT) 29 0-55 U/L Alkaline Phosphatase 78 40-136 U/L Total Creatine Kinase 79 29-168 U/L Creatine Kinase MB 0.8 <6.6 NG/ML Myoglobin 20.4 10.0-92.0 NG/ML Troponin I < 0.028 <0.028 NG/ML B-Type Natriuretic Peptide < 10.0 <100.0 PG/ML Total Protein 6.7 6.4-8.2 GM/DL Albumin 3.9 3.2-4.5 GM/DL Amylase Level 42 25-125 U/L Lipase 61 8-78 U/L Serum Test, Qualitative NEGATIVE NEGATIVE Serum Alcohol < 10 <10 MG/DL My Orders Orders - EDU GONZÁLES DO Cbc With Automated Diff (03/15/23 23:37) Magnesium (03/15/23 23:37) Ekg Tracing (03/15/23 23:37) Comprehensive Metabolic Panel (03/15/23 23:37) Myoglobin Serum (03/15/23 23:37) Protime With Inr (03/15/23 23:37) Partial Thromboplastin Time (03/15/23 23:37) O2 (03/15/23 23:37) Monitor-Rhythm Ecg Trace Only (03/15/23 23:37) Ed Iv/Invasive Line Start (03/15/23 23:37) Creatine Kinase (03/15/23 23:37) Creatine Kinase Mb (03/15/23 23:37) Lipase (03/15/23 23:37) Amylase (03/15/23 23:37) Bnp [place] (03/15/23 23:37) Fibrin Degradation Products (03/15/23 23:37) Troponin I [place] (03/15/23 23:37) Aspirin Chewable Tablet (Baby Aspirin Ch (03/15/23 23:45) Ketorolac Injection (Toradol Injection) (03/15/23 23:45) Alcohol (03/15/23 23:52) Hcg,Qualitative Serum (03/15/23 23:52) Chest 1 View, Ap/Pa Only (03/16/23 00:01) Medications Given in ED Current Medications Medications Dose Ordered Sig/Stephie Route Start Time Stop Time Status Last Admin Dose Admin Aspirin 324 mg ONCE ONCE PO 03/15/23 23:45 03/15/23 23:46 DC 03/15/23 23:46 324 MG Ketorolac Tromethamine 30 mg ONCE ONCE IVP 03/15/23 23:45 03/15/23 23:46 DC 03/15/23 23:47 30 MG Vital Signs/I&O 03/15/23 23:36 Temp 35.8 Pulse 86 Resp 16 B/P (MAP) 142/83 (102) Pulse Ox 99 O2 Delivery Room Air Blood Pressure Mean: 102 Departure Impression Primary Impression: Chest wall pain Disposition: HOME, SELF-CARE Condition: Improved Departure-Patient Inst. Decision time for Depature: 00:30 Referrals: [facility] (PCP) Primary Care Physician LOUANN VILLALOBOS APRN (Family) Primary Care Physician Patient Instructions: Costochondritis (DC) Add. Discharge Instructions: HOME, REST NO LIFTING OR HEAVY EXERTION FOR THE NEXT FEW DAYS YOU MAY TAKE TYLENOL 1 GRAM EVERY 6 HOURS NEEDED FOR PAIN DO NOT TAKE IBUPROFEN IF YOU ARE TAKING THE PRESCRIPTION PAIN MEDICATION. TAKE ALL OF YOUR REGULAR MEDICATIONS PRESCRIBED FOLLOW UP WITH [facility] IN 3-4 DAYS IF NO BETTER, RETURN TO ER IF WORSE All discharge instructions reviewed with patient and/or family. Voiced understanding. Scripts Meloxicam (Meloxicam) 15 Mg Tablet 15 MG PO DAILY, #10 TAB Prov: EDU GONZÁLES DO 03/16/23 EDU GONZÁLES DO Mar 15, 2023 23:54
[2023-03-16 00:03] LABS: BASOPHILS # (AUTO) 0.1 10^3/uL (0.0-0.1); BASOPHILS % (AUTO) 1 % (0-10); EOSINOPHILS # (AUTO) 0.2 10^3/uL (0.0-0.3); EOSINOPHILS % (AUTO) 3 % (0-10); HEMATOCRIT 43 % (35-52); HEMOGLOBIN 14.6 g/dL (11.5-16.0); LYMPHOCYTES # (AUTO) 3.1 10^3/uL (1.0-4.0); LYMPHOCYTES % (AUTO) 42 % (12-44); MEAN CORPUSCULAR HEMOGLOBIN 30 pg (25-34); MEAN CORPUSCULAR HGB CONC 34 g/dL (32-36); MEAN CORPUSCULAR VOLUME 90 fL (80-99); MEAN PLATELET VOLUME 9.3 fL (9.0-12.2); MONOCYTES # (AUTO) 0.7 10^3/uL (0.0-1.0); MONOCYTES % (AUTO) 10 % (0-12); NEUTROPHILS # (AUTO) 3.3 10^3/uL (1.8-7.8); NEUTROPHILS % (AUTO) 44 % (42-75); PLATELET COUNT 285 10^3/uL (130-400); PROTHROMBIN TIME PATIENT 12.9 SEC (12.2-14.7); WHITE BLOOD COUNT 7.4 10^3/uL (4.3-11.0)
[2023-03-16 00:05] LABS: ALBUMIN 3.9 GM/DL (3.2-4.5); CHLORIDE 105 MMOL/L (98-107); POTASSIUM 4.2 MMOL/L (3.6-5.0); SODIUM 139 MMOL/L (135-145)
[2023-03-16 00:06] LABS: AMYLASE 42 U/L (25-125); CALCIUM 9.8 MG/DL (8.5-10.1); FIBRIN DEGRADATION PRODUCTS 0.32 UG/ML (0.00-0.49)
[2023-03-16 00:07] LABS: GLUCOSE 222 MG/DL (70-105); TOTAL PROTEIN 6.7 GM/DL (6.4-8.2)
[2023-03-16 00:08] LABS: CARBON DIOXIDE 22 MMOL/L (21-32)
[2023-03-16 00:09] LABS: BILIRUBIN,TOTAL 0.2 MG/DL (0.1-1.0)
[2023-03-16 00:11] LABS: ALKALINE PHOSPHATASE 78 U/L (40-136); CREATININE SERUM 0.85 MG/DL (0.60-1.30); GFR ESTIMATED 86
[2023-03-16 00:12] LABS: BUN/CREATININE RATIO 21
[2023-03-16 00:14] LABS: ALANINE AMINOTRANSFERASE 29 U/L (0-55); MAGNESIUM 1.8 MG/DL (1.6-2.4)
[2023-03-16 00:15] LABS: CREATINE KINASE 79 U/L (29-168); LIPASE 61 U/L (8-78)
[2023-03-16 00:22] LABS: CREATINE KINASE MB 0.8 NG/ML (<6.6)
[2023-03-16] MEDS ORDERED: MELO15TA39 PO (00:37)
[2023-03-16 00:38] VITALS: BP 122/82
--- NOTE | 2023-03-16 07:16 | Diagnostic Imaging Report ---
INDICATION: Chest pain. COMPARISON: 01/12/2023. DISCUSSION: Single portable upright view of the chest was obtained. Stable normal heart size. No consolidation, pleural fluid, or pneumothorax. No osseous abnormality. IMPRESSION: 1. Negative chest. Dictated by: Dictated on workstation # [id number]
== END 2023-03-16 00:41 | disposition home or self-care (01) ==
LOC: EDUNIT# 23:35 → ER 23:37
DX: R07.89 Other chest pain (principal); E66.9 Obesity, unspecified; E11.9 Type 2 diabetes mellitus without complications; Z79.4 Long term (current) use of insulin; Z68.41 Body mass index [BMI] 40.0-44.9, adult; Z28.310 Unvaccinated for COVID-19
CPT/HCPCS: 71045; 80053; 82150; 82550; 82553; 83690; 83735; 83874; 83880; 84484; 84703; 85025; 85379; 85610; 85730; 93041; 99284; G0480; 36415; 80320; 93005

== ENCOUNTER 2023-04-14 18:51 | Emergency (ER) | payer MEDICAID, MEDICARE ==
[~2023-04-14] VITALS: Ht 162 cm; Wt 108.0 kg
[~2023-04-14 18:51] MED LIST changes: +GEMF600T88; +GLIP5TAB13; +INSU100I88; +MELO15TA39 PO; +METF-397; +MTP25TSR; +OLME20TA24; +[UNRECOGNIZED DRUG - CODE]
[2023-04-14] MEDS ORDERED: fentaNYL INJ 100 MCG/2 ML AMP IVP STA (19:07)
[2023-04-14] MEDS ORDERED: NS IV 1000 ML 1,000 ML IV STA ×2 (19:07→19:34)
--- NOTE | 2023-04-14 19:12 | ED Abdominal Pain ---
General Chief Complaint: Abdominal/GI Problems Stated Complaint: ABDOMINAL PAIN Nursing Triage Note: PT ARRIVED PER EMS, PT CO OF ABD PAIN 10/10 AND VOMITING, STARTED THIS AM. PT HAS SL IN L AC BY EMS #20 JELCO. PT STATES HAS CONST AND DIARRHEA. FSBS 180. Source of Information: Patient Exam Limitations: No Limitations History of Present Illness Date Seen by Provider: Apr 14, 2023 Time Seen by Provider: 19:10 Initial Comments Patient is a 48-year-old female with a history of type 2 diabetes presents to ED with upper abdominal pain. Pain started this morning when she woke up. Sharp pain intermittent located to her epigastric and right upper quadrant. Pain does not radiate. She vomited 3 times today. She attempted to eat but this seem to make the pain worse. She took a nap today woke up feeling really weak and fatigued. She had a sensation that she was going to fall. She then vomited 3 times. Had a large bowel movement initially hard and then had soft stool afterwards. Denies any blood in her stool. Normal urination. She states she has a dry mouth. She does take Levemir for her type 2 diabetes. No history of previous abdominal surgery. Denies chest pain, cough, shortness of breath, headache, dizziness. Was brought to ED by EMS. Patient states she feels nauseous. Pain slightly improved. She denies any fevers. Patient with Bodyaches, chills weakness. Allergies and Home Medications Allergies Coded Allergies: dapagliflozin (Verified Allergy, Unknown, 06/26/22) duloxetine (Verified Allergy, Unknown, 06/26/22) escitalopram (Verified Allergy, Unknown, 06/26/22) paroxetine (Verified Allergy, Unknown, 06/26/22) peanut (Verified Allergy, Unknown, 06/26/22) pneumococcal vaccine (Verified Allergy, Unknown, 06/26/22) Uncoded Allergies: DRAGON FRUIT (Allergy, Unknown, 04/14/23) Patient Home Medication List Home Medication List Reviewed: Yes Blood Sugar Diagnostic ([employer] Ultra Test Strips) 1 Each Strip, (Reported) Entered as Reported by: SABRA ALONSO on 03/15/23 5064 Cyclobenzaprine HCl (Cyclobenzaprine HCl) 10 Mg Tablet, 10 MG PO Q8H PRN for SPASMS Prescribed by: EDU GONZÁLES on 11/20/22 0054 Enalapril Maleate (Vasotec) 20 Mg Tablet, 20 MG PO DAILY, (Reported) Entered as Reported by: HERSON HA on 02/27/12 0939 Escitalopram Oxalate (Lexapro) 10 Mg Tablet, 1 EACH PO DAILY, (Reported) Entered as Reported by: GINNA LABOY on 07/19/13 0020 Fluticasone Propionate (Allergy Relief) 50 Mcg/Actuation [place].susp, 15.8 ML NS BID Prescribed by: PHILL DOBBINS on 06/26/221903 Gemfibrozil (Gemfibrozil) 600 Mg Tablet, (Reported) Entered as Reported by: SABRA ALONSO on 03/15/232343 Glipizide (Glipizide) 5 Mg Tablet, (Reported) Entered as Reported by: SABRA ALONSO on 03/15/232343 Insulin Detemir (Levemir Flexpen) 100 Unit/Ml (3 Ml) Insuln.pen, (Reported) Entered as Reported by: SABRA ALONSO on 03/15/232343 Ketorolac Tromethamine (Ketorolac Tromethamine) 10 Mg Tablet, 10 MG PO Q6H Prescribed by: EDU GONZÁLES on 12/12/22346 Meclizine HCl (Meclizine HCl) 25 Mg Tablet, 25 MG PO Q6H PRN for VERTIGO Prescribed by: PHILL DOBBINS on 06/26/221903 Meloxicam (Meloxicam) 15 Mg Tablet, 15 MG PO DAILY Prescribed by: EDU GONZÁLES on 03/16/2336 Metformin HCl (Metformin HCl) 500 Mg Tablet, (Reported) Entered as Reported by: SABRA ALONSO on 03/15/232343 Metoprolol Succinate (Metoprolol Succinate) 25 Mg Tab.er.24h, (Reported) Entered as Reported by: SABRA ALONSO on 03/15/232343 Naproxen (Naproxen) 500 Mg Tablet.dr, 500 MG PO BID Prescribed by: EDU GONZÁLES on 11/20/2253 Olmesartan Medoxomil (Olmesartan Medoxomil) 20 Mg Tablet, (Reported) Entered as Reported by: SABRA ALONSO on 03/15/232343 Omeprazole (Omeprazole) 20 Mg Capsule.dr, 20 MG PO DAILY Prescribed by: SEBASTIÁN BUTLER on 09/14/20 1705 Trimethoprim/Sulfamethoxazole (Bactrim Ds) 1 Ea Tablet, 1 EA PO BID Prescribed by: MARKEL GARCIA on 07/19/13 0130 Review of Systems Review of Systems Constitutional: No chills, No diaphoresis, No fever; malaise, weakness EENTM: No Double Vision, No Eye Pain, No Mouth Pain, No Mouth Swelling Respiratory: Denies Cough Cardiovascular: Denies Chest Pain Gastrointestinal: Abdominal Pain, Constipated; Denies Diarrhea; Nausea, Vomiting Genitourinary: Denies Burning, Denies Discharge, Denies Drainage, Denies Frequ ency Musculoskeletal: No back pain, No joint pain Skin: No change in color, No change in hair/nails All Other Systems Reviewed Negative Unless Noted: Yes Past Pkjahae-Ivwyve-Rdqtnw Hx Patient Social History Tobacco Use?: No Substance use?: No Alcohol Use?: No Pt feels they are or have been: No Immunizations Up To Date Tetanus Booster (TDap): Unknown First/Initial COVID19 Vaccinat: NONE Second COVID19 Vaccination Nikita: NONE Third COVID19 Vaccination Date: NONE Past Medical History Surgery/Hospitalization HX: DM, HLD, DEPRESSION, ANXIETY, HTN, TBI, SCHIZOPHRENIA TUBAL Surgeries: Yes (TUBAL LIGATION, EAR SURGERY, ABSCESS LANCED TO LEFT LEG) Ear Surgery, Tubal Ligation Respiratory: Yes (HAS AN INHALER) Cardiac: Yes Hypertension Neurological: Yes (BRAIN INJURY AT 8 YRS OLD) Traumatic Brain Injury 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 oz. 99.378154st; 41.00 BMI Method:Stated General Appearance: WD/WN, no apparent distress HEENT: PERRL/EOMI, normal ENT inspection, TMs normal, pharynx normal Neck: non-tender, full range of motion, supple, normal inspection Respiratory: chest non-tender, lungs clear, normal breath sounds, no respiratory distress, no accessory muscle use Cardiovascular: regular rate, rhythm, no edema, no gallop, no JVD Gastrointestinal: normal bowel sounds, soft, no organomegaly, tenderness (Epigastric tenderness. Right upper quadrant tenderness. Normal bowel sounds throughout. 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, no motor/sensory deficits, alert, normal mood/affect, oriented x 3 Focused Exam Lactate Level 04/14/23 19:20: Lactic Acid Level 1.17 Lactic Acid Level Laboratory Tests Test 04/14/23 19:20 Lactic Acid Level 1.17 MMOL/L (0.50-2.00) Progress/Results/Core Measures Results/Orders Lab Results Laboratory Tests Test 04/14/23 19:00 04/14/23 19:02 04/14/23 19:20 04/14/23 20:01 Range/Units White Blood Count 13.2 H 4.3-11.0 10^3/uL Red Blood Count 5.20 H 3.80-5.11 10^6/uL Hemoglobin 16.2 H 11.5-16.0 g/dL Hematocrit 46 35-52 % Mean Corpuscular Volume 89 80-99 fL Mean Corpuscular Hemoglobin 31 25-34 pg Mean Corpuscular Hemoglobin Concent 35 32-36 g/dL Red Cell Distribution Width 12.5 10.0-14.5 % Platelet Count 292 130-400 10^3/uL Mean Platelet Volume 9.4 9.0-12.2 fL Immature Granulocyte % (Auto) 1 % Neutrophils (%) (Auto) 83 H 42-75 % Lymphocytes (%) (Auto) 10 L 12-44 % Monocytes (%) (Auto) 5 0-12 % Eosinophils (%) (Auto) 1 0-10 % Basophils (%) (Auto) 0 0-10 % Neutrophils # (Auto) 10.9 H 1.8-7.8 10^3/uL Lymphocytes # (Auto) 1.3 1.0-4.0 10^3/uL Monocytes # (Auto) 0.7 0.0-1.0 10^3/uL Eosinophils # (Auto) 0.1 0.0-0.3 10^3/uL Basophils # (Auto) 0.0 0.0-0.1 10^3/uL Immature Granulocyte # (Auto) 0.1 0.0-0.1 10^3/uL Sodium Level 140 135-145 MMOL/L Potassium Level 4.3 3.6-5.0 MMOL/L Chloride Level 108 H 98-107 MMOL/L Carbon Dioxide Level 17 L 21-32 MMOL/L Anion Gap 15 H 5-14 MMOL/L Blood Urea Nitrogen 17 7-18 MG/DL Creatinine 0.67 0.60-1.30 MG/DL Estimat Glomerular Filtration Rate 109 BUN/Creatinine Ratio 25 Glucose Level 190 H 70-105 MG/DL Calcium Level 9.2 8.5-10.1 MG/DL Corrected Calcium 9.0 8.5-10.1 MG/DL Magnesium Level 1.7 1.6-2.4 MG/DL Total Bilirubin 0.5 0.1-1.0 MG/DL Aspartate Amino Transf (AST/SGOT) 21 5-34 U/L Alanine Aminotransferase (ALT/SGPT) 39 0-55 U/L Alkaline Phosphatase 78 40-136 U/L Total Protein 7.3 6.4-8.2 GM/DL Albumin 4.2 3.2-4.5 GM/DL Lipase 37 8-78 U/L Beta-Hydroxybutyrate (Chem panel) 1.57 H 0.00-0.27 MMOL/L Glucometer 190 H 70-110 MG/DL Lactic Acid Level 1.17 0.50-2.00 MMOL/L Urine Color YELLOW Urine Clarity CLEAR Urine pH 5.0 5-9 Urine Specific [place] 1.020 1.016-1.022 Urine Protein NEGATIVE NEGATIVE Urine Glucose (UA) 3+ H NEGATIVE Urine Ketones 2+ H NEGATIVE Urine Nitrite NEGATIVE NEGATIVE Urine Bilirubin NEGATIVE NEGATIVE Urine Urobilinogen 0.2 < = 1.0 MG/DL Urine Leukocyte Esterase NEGATIVE NEGATIVE Urine RBC (Auto) NEGATIVE NEGATIVE Urine RBC NONE /HPF Urine WBC 0-2 /HPF Urine Squamous Epithelial Cells 5-10 /HPF Urine Crystals PRESENT H /LPF Urine Amorphous Sediment FEW KESHIA URATES H /LPF Urine Bacteria MODERATE H /HPF Urine Casts NONE /LPF Urine Mucus NEGATIVE /LPF Urine Culture Indicated YES Urine Test NEGATIVE NEGATIVE My Orders Orders - NIKKI HA Cbc With Automated Diff (04/14/23 19:07) Comprehensive Metabolic Panel (04/14/23 19:07) Lipase (04/14/23 19:07) Ua Culture If Indicated (04/14/23 19:07) Hcg,Qualitative Urine (04/14/23 19:07) Beta Hydroxybutyrate (04/14/23 19:07) Magnesium (04/14/23 19:07) Ct Abdomen/Pelvis W (04/14/23 19:07) Ns Iv 1000 Ml (Sodium Chloride 0.9%) (04/14/23 19:07) Lactic Acid Analyzer (04/14/23 19:07) Ondansetron Injection (Zofran Injectio (04/14/23 19:15) Fentanyl Inj (Sublimaze Injection) (04/14/23 19:07) Ns Iv 1000 Ml (Sodium Chloride 0.9%) (04/14/23 19:34) Iohexol Injection (Omnipaque 350 Mg/Ml 1 (04/14/23 19:45) Received Contrast (Hold Metformin- Contr (04/14/23 19:45) Ns (Ivpb) (Sodium Chloride 0.9% Ivpb Bag (04/14/23 19:45) Accucheck Stat ONCE (04/14/23 20:20) Urine Culture (04/14/23 20:01) Rx-Ondansetron Po (Rx-Zofran Po) (04/14/23 21:00) Medications Given in ED Current Medications Medications Dose Ordered Sig/Stephie Route Start Time Stop Time Status Last Admin Dose Admin Iohexol 100 ml ONCE ONCE IV 04/14/23 19:45 04/14/23 19:46 DC 04/14/23 20:18 80 ML Ondansetron HCl 4 mg ONCE ONCE IVP 04/14/23 19:15 04/14/23 19:16 DC 04/14/23 19:18 4 MG Ondansetron HCl 4 mg ONCE ONCE PO 04/14/23 21:00 04/14/23 21:01 DC 04/14/23 21:18 4 MG Sodium Chloride 100 ml ONCE ONCE IV 04/14/23 19:45 04/14/23 19:46 DC 04/14/23 20:18 80 ML Vital Signs/I&O 04/14/23 04/14/23 18:57 21:32 Temp 36.9 36.9 Pulse 116 97 Resp 16 16 B/P (MAP) 132/91 (105) 113/74 Pulse Ox 97 98 O2 Delivery Room Air Blood Pressure Mean: 105 Departure Communication (PCP) Patient with a history of type 2 diabetes currently on Levemir who presents to ED for upper abdominal pain vomiting. Symptoms started this morning. She states her blood sugar has been running around 180. She did have a large bowel movement and several soft bowel movements afterwards. Differential diagnosis, gastritis, DKA, cholecystitis appendicitis, gastroenteritis. Urinalysis, CBC, CMP, lipase was ordered. Added a beta hydroxybutyrate due to her uncontrolled diabetes. CBC shows slight elevated white blood count 13, hemoglobin 16.2. Chemistry bicarb 17, anion gap of 15, blood sugar 180, normal lactic acid, normal liver enzymes and lipase. Beta hydroxybutyrate was 1.57. Did note some ketones in her urine without evidence of infection. CT abdomen pelvis was negative for acute cholecystitis, appendicitis. Concern for gastroenteritis. She does have some mild DKA likely secondary to the dehydration. She received 2 L of fluid. She was given a dose of pain medication along with Zofran. Patient was feeling much better at this time. Do not necessarily believe patient needs inpatient at this time for the mild DKA. She does not appear toxic. She is alert and orient x4. Will discharge with Zofran. Discussed importance of staying hydrated. Discussed starting Pepcid. Likely has a viral component. Recommend follow-up with your PCP in 2 to 3 days for reevaluation. If weakness of fatigue worsen, uncontrolled diabetes, shortness of breath to return back to ED. Patient agrees with plan of action. Improvement of her tachycardia. She is afebrile. No evidence of surgical abdomen. No chest pain shortness of breath or cough. Impression Primary Impression: Abdominal pain Additional Impression: Dehydration Disposition: 01 HOME, SELF-CARE Condition: Stable Departure-Patient Inst. Decision time for Depature: 20:50 Referrals: [facility] (PCP) Primary Care Physician LOUANN VILLALOBOS APRN (Family) Primary Care Physician Patient Instructions: [id number] Add. Discharge Instructions: Recommend staying hydrated with Pedialyte. Zofran for nausea. Continue monitoring blood sugar. May consider Pepcid for upper abdominal pain. Follow- up your PCP in 2 to 3 days for reevaluation. All discharge instructions reviewed with patient and/or family. Voiced und erstanding. NIKKI HA Apr 14, 2023 19:12
[2023-04-14 19:14] LABS: BASOPHILS % (AUTO) 0 % (0-10); EOSINOPHILS # (AUTO) 0.1 10^3/uL (0.0-0.3); EOSINOPHILS % (AUTO) 1 % (0-10); HEMATOCRIT 46 % (35-52); HEMOGLOBIN 16.2 g/dL (11.5-16.0); LYMPHOCYTES # (AUTO) 1.3 10^3/uL (1.0-4.0); LYMPHOCYTES % (AUTO) 10 % (12-44); MEAN CORPUSCULAR HEMOGLOBIN 31 pg (25-34); MEAN CORPUSCULAR HGB CONC 35 g/dL (32-36); MEAN CORPUSCULAR VOLUME 89 fL (80-99); MEAN PLATELET VOLUME 9.4 fL (9.0-12.2); MONOCYTES # (AUTO) 0.7 10^3/uL (0.0-1.0); MONOCYTES % (AUTO) 5 % (0-12); NEUTROPHILS # (AUTO) 10.9 10^3/uL (1.8-7.8); NEUTROPHILS % (AUTO) 83 % (42-75); PLATELET COUNT 292 10^3/uL (130-400); WHITE BLOOD COUNT 13.2 10^3/uL (4.3-11.0)
[2023-04-14] MEDS ORDERED: ONDANSETRON 4 MG/2 ML (SDV) Z0FRAN IVP ONE (19:15)
[2023-04-14 19:20] LABS: ALBUMIN 4.2 GM/DL (3.2-4.5); POTASSIUM 4.3 MMOL/L (3.6-5.0)
[2023-04-14 19:22] LABS: CALCIUM 9.2 MG/DL (8.5-10.1)
[2023-04-14 19:23] LABS: TOTAL PROTEIN 7.3 GM/DL (6.4-8.2)
[2023-04-14 19:25] LABS: BILIRUBIN,TOTAL 0.5 MG/DL (0.1-1.0)
[2023-04-14 19:26] LABS: CREATININE SERUM 0.67 MG/DL (0.60-1.30)
[2023-04-14 19:29] LABS: MAGNESIUM 1.7 MG/DL (1.6-2.4)
[2023-04-14] MEDS ORDERED: HOLD METFORMIN - RECEIVED CONTRAST 20 ML VIAL IV SCH (19:45)
[2023-04-14] MEDS ORDERED: IOHEXOL 350 MG/ML 100 ML (OMNIPAQUE 350) VIAL IV ONE (19:45)
[2023-04-14] MEDS ORDERED: NS 100 ML (IVPB) BAG IV ONE (19:45)
[2023-04-14 20:08] LABS: BILIRUBIN,URINE NEGATIVE (NEGATIVE); CLARITY,URINE CLEAR; COLOR,URINE YELLOW; GLUCOSE, URINE (UA) 3+ (NEGATIVE); KETONES,URINE 2+ (NEGATIVE); LEUKOCYTE ESTERASE ,URINE NEGATIVE (NEGATIVE); NITRITE,URINE NEGATIVE (NEGATIVE); PROTEIN,URINE NEGATIVE (NEGATIVE)
[2023-04-14 20:22] LABS: BACTERIA,URINE MODERATE /HPF; WBC,URINE 0-2 /HPF
[2023-04-14 20:23] LABS: AMORPHOUS SEDIMENT,UR FEW AMOR URATES /LPF
--- NOTE | 2023-04-14 20:33 | Diagnostic Imaging Report ---
PROCEDURE: CT abdomen and pelvis with contrast. TECHNIQUE: Multiple contiguous axial images were obtained through the abdomen and pelvis after administration of intravenous contrast. Auto Exposure Controls were utilized during the CT exam to meet ALARA standards for radiation dose reduction. All CT scans use one or more of the following dose optimizing techniques: automated exposure control, MA and/or KvP adjustment based on patient size and exam type or iterative reconstruction. INDICATION: 48-year-old female with abdominal pain, vomiting and diarrhea. COMPARISONS: 09/17/2022 FINDINGS: Lung bases are clear. Cardiac contour is normal. Liver shows uniform attenuation. Gallbladder, spleen, GE junction, stomach and duodenal sweep are unremarkable. Pancreas shows sharp margins. Adrenals are normal. Kidneys appear normal in size, position and contour. There is symmetrical perfusion of contrast. There is no evidence of obstructive uropathy. Both ureters are seen intermittently through their course and appear unremarkable. Bladder is nondistended. Uterus and adnexa are grossly unremarkable. Nonopacified loops of small bowel show some fluid-filled loops but no significant distention. Appendix is unremarkable. There is liquid stool in the large bowel up to the distal transverse colon. Descending and sigmoid colon are mostly decompressed. There are nonaneurysmal aortic calcifications extending the iliac arteries. There is normal origin of the visceral arteries. Bone windows show no overall gross abnormalities. IMPRESSION: 1. No evidence of cholecystitis, appendicitis or obstructive uropathy. No areas of peritoneal inflammation seen. 2. Probable gastroenteritis with liquid stool throughout the colon to the splenic flexure. There is also some fluid-filled loops of small bowel without significant distention. Additional nonemergent findings as described above. Dictated by: Dictated on workstation # [id number]
[2023-04-14] MEDS ORDERED: RX-ONDANSETRON 4 MG ODT (ZOFRAN) PPK #4 PO ONE (21:00)
[2023-04-14 21:32] VITALS: BP 113/74
== END 2023-04-14 21:33 | disposition home or self-care (01) ==
LOC: EDUNIT# 18:51 → ER 18:55
DX: R10.11 Right upper quadrant pain (principal); R10.13 Epigastric pain; E86.0 Dehydration; E66.9 Obesity, unspecified; E11.10 Type 2 diabetes mellitus with ketoacidosis without coma; Z79.4 Long term (current) use of insulin; Z28.310 Unvaccinated for COVID-19; Z68.41 Body mass index [BMI] 40.0-44.9, adult
CPT/HCPCS: 36415; 74177; 80053; 81000; 82010; 82947; 83605; 83690; 83735; 84703; 85025; 87088

== ENCOUNTER 2023-05-02 00:35 | Emergency (ER) | payer MEDICARE, MEDICAID ==
[2023-05-02] MEDS ORDERED: LIDOCAINE 2% VISCOUS 15 ML UDC PO ONE (01:00)
[2023-05-02] MEDS ORDERED: ONDANSETRON 4 MG/2 ML (SDV) Z0FRAN IVP ONE (01:00)
[2023-05-02] MEDS ORDERED: ANTACID SUSP 30 ML UDC (MYLANTA) PO ONE (01:00)
[2023-05-02 01:05] LABS: BASOPHILS # (AUTO) 0.1 10^3/uL (0.0-0.1); BASOPHILS % (AUTO) 1 % (0-10); EOSINOPHILS # (AUTO) 0.2 10^3/uL (0.0-0.3); EOSINOPHILS % (AUTO) 3 % (0-10); HEMATOCRIT 43 % (35-52); HEMOGLOBIN 14.4 g/dL (11.5-16.0); LYMPHOCYTES # (AUTO) 3.2 10^3/uL (1.0-4.0); LYMPHOCYTES % (AUTO) 46 % (12-44); MEAN CORPUSCULAR HEMOGLOBIN 31 pg (25-34); MEAN CORPUSCULAR HGB CONC 34 g/dL (32-36); MEAN CORPUSCULAR VOLUME 91 fL (80-99); MEAN PLATELET VOLUME 9.1 fL (9.0-12.2); MONOCYTES # (AUTO) 0.8 10^3/uL (0.0-1.0); MONOCYTES % (AUTO) 12 % (0-12); NEUTROPHILS # (AUTO) 2.7 10^3/uL (1.8-7.8); NEUTROPHILS % (AUTO) 38 % (42-75); PLATELET COUNT 309 10^3/uL (130-400)
[2023-05-02 01:12] LABS: ALBUMIN 4.1 GM/DL (3.2-4.5); CHLORIDE 105 MMOL/L (98-107); POTASSIUM 3.9 MMOL/L (3.6-5.0); PROTHROMBIN TIME PATIENT 12.9 SEC (12.2-14.7); SODIUM 140 MMOL/L (135-145)
[2023-05-02 01:14] LABS: CALCIUM 9.9 MG/DL (8.5-10.1)
[2023-05-02 01:15] LABS: GLUCOSE 169 MG/DL (70-105); TOTAL PROTEIN 7.3 GM/DL (6.4-8.2)
[2023-05-02 01:16] LABS: CARBON DIOXIDE 22 MMOL/L (21-32)
[2023-05-02 01:17] LABS: BILIRUBIN,TOTAL 0.3 MG/DL (0.1-1.0)
[2023-05-02 01:18] LABS: ALKALINE PHOSPHATASE 75 U/L (40-136)
[2023-05-02 01:19] LABS: CREATININE SERUM 0.74 MG/DL (0.60-1.30); GFR ESTIMATED 101
[2023-05-02 01:20] LABS: BUN/CREATININE RATIO 18
[2023-05-02 01:21] LABS: MAGNESIUM 1.7 MG/DL (1.6-2.4)
--- NOTE | 2023-05-02 01:21 | ED Chest Pain ---
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 PT STATES HAS HAD THIS PAIN BEFORE WHEN SHE PULLED A MUSCLE. PT ALSO REPORTS LOW BS, FLORENCE AND BILAT ARM TINGLING SINCE YESTERDAY PM. PT A&OX4. DENIES CARDIAC HX Source: patient Exam Limitations: no limitations History of Present Illness Date Seen by Provider: May 02, 2023 Time Seen by Provider: 00:47 Initial Comments This 48-year-old woman presents to the emergency room with complaints of a sharp pain beneath the left breast area and just left of the inferior sternum. Pain started around 2245. She had associated palpitations earlier in the evening. She reports her blood sugars were "low". She reports a progression of blood sugars of 157-1 137-181. Blood sugar at present is 164. She denies any exacerbating or alleviating factors for her pain. Allergies and Home Medications Allergies Coded Allergies: dapagliflozin (Verified Allergy, Unknown, 06/26/22) duloxetine (Verified Allergy, Unknown, 06/26/22) escitalopram (Verified Allergy, Unknown, 06/26/22) paroxetine (Verified Allergy, Unknown, 06/26/22) peanut (Verified Allergy, Unknown, 06/26/22) pneumococcal vaccine (Verified Allergy, Unknown, 06/26/22) Uncoded Allergies: DRAGON FRUIT (Allergy, Unknown, 04/14/23) Patient Home Medication List Home Medication List Reviewed: Yes Blood Sugar Diagnostic (Mouth Foodstouch Ultra Test Strips) 1 Each Strip, (Reported) Entered as Reported by: SABRA ALONSO on 03/15/23 2344 Cyclobenzaprine HCl (Cyclobenzaprine HCl) 10 Mg Tablet, 10 MG PO Q8H PRN for SPASMS Prescribed by: EDU GONZÁLES on 11/20/22 0054 Enalapril Maleate (Vasotec) 20 Mg Tablet, 20 MG PO DAILY, (Reported) Entered as Reported by: HERSON HA on 02/27/12 0939 Escitalopram Oxalate (Lexapro) 10 Mg Tablet, 1 EACH PO DAILY, (Reported) Entered as Reported by: GINNA LABOY on 07/19/13 0020 Famotidine (Pepcid) 20 Mg Tablet, 20 MG PO BID Prescribed by: SEBASTIÁN BUTLER on 05/02/23 0352 Fluticasone Propionate (Allergy Relief) 50 Mcg/Actuation [place].susp, 15.8 ML NS BID Prescribed by: PHILL DOBBINS on 06/26/221903 Gemfibrozil (Gemfibrozil) 600 Mg Tablet, (Reported) Entered as Reported by: SABRA ALONSO on 03/15/232343 Glipizide (Glipizide) 5 Mg Tablet, (Reported) Entered as Reported by: SABRA ALONSO on 03/15/232343 Insulin Detemir (Levemir Flexpen) 100 Unit/Ml (3 Ml) Insuln.pen, (Reported) Entered as Reported by: SABRA ALONSO on 03/15/232343 Ketorolac Tromethamine (Ketorolac Tromethamine) 10 Mg Tablet, 10 MG PO Q6H Prescribed by: EDU GONZÁLES on 12/12/22 034 Meclizine HCl (Meclizine HCl) 25 Mg Tablet, 25 MG PO Q6H PRN for VERTIGO Prescribed by: PHILL DOBBINS on 06/26/221903 Meloxicam (Meloxicam) 15 Mg Tablet, 15 MG PO DAILY Prescribed by: EDU GONZÁLES on 03/16/23 003 Metformin HCl (Metformin HCl) 500 Mg Tablet, (Reported) Entered as Reported by: SABRA ALONSO on 03/15/232343 Metoprolol Succinate (Metoprolol Succinate) 25 Mg Tab.er.24h, (Reported) Entered as Reported by: SABRA ALONSO on 03/15/232343 Naproxen (Naproxen) 500 Mg Tablet.dr, 500 MG PO BID Prescribed by: EDU GONZÁLES on 11/20/22 0054 Olmesartan Medoxomil (Olmesartan Medoxomil) 20 Mg Tablet, (Reported) Entered as Reported by: SABRA ALONSO on 03/15/232343 Omeprazole (Omeprazole) 20 Mg Capsule.dr, 20 MG PO DAILY Prescribed by: SEBASTIÁN BUTLER on 09/14/20 1705 Trimethoprim/Sulfamethoxazole (Bactrim Ds) 1 Ea Tablet, 1 EA PO BID Prescribed by: MARKEL GARCIA on 07/19/13 0130 Review of Systems Review of Systems Constitutional: no symptoms reported EENTM: No Symptoms Reported Respiratory: No Symptoms Reported Cardiovascular: See HPI Gastrointestinal: See HPI Genitourinary: No Symptoms Reported Musculoskeletal: no symptoms reported Skin: no symptoms reported Psychiatric/Neurological: No Symptoms Reported Endocrine: No Symptoms Reported Hematologic/Lymphatic: No Symptoms Reported Past Cidwzgf-Mxwqbg-Pxgrir Hx Patient Social History Tobacco Use?: No Substance use?: No Alcohol Use?: No Pt feels they are or have been: No Immunizations Up To Date Tetanus Booster (TDap): Unknown First/Initial COVID19 Vaccinat: NONE Second COVID19 Vaccination Nikita: NONE Third COVID19 Vaccination Date: NONE Past Medical History Surgery/Hospitalization HX: DM, HLD, DEPRESSION, ANXIETY, HTN, TBI, SCHIZOPHRENIA TUBAL Surgeries: Yes (TUBAL LIGATION, EAR SURGERY, ABSCESS LANCED TO LEFT LEG) Ear Surgery, Tubal Ligation Respiratory: Yes (HAS AN INHALER) Cardiac: Yes Hypertension Neurological: Yes (BRAIN INJURY AT 8 YRS OLD) Traumatic Brain Injury 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 Disorders: No 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 oz. 99.048379hn; 41.00 BMI Method:Stated General Appearance: No Apparent Distress, WD/WN HEENT: PERRL/EOMI, Normal ENT Inspection Neck: Full Range of Motion, Normal Inspection Respiratory: Chest Non Tender, Lungs Clear, Normal Breath Sounds, No Accessory Muscle Use Cardiovascular: Regular Rate, Rhythm, No Edema, No Murmur Gastrointestinal: Normal Bowel Sounds, Soft, Tenderness (Left upper quadrant) Extremity: Normal Inspection, No Pedal Edema Neurologic/Psychiatric: Alert, Oriented x3, No Motor/Sensory Deficits, Normal Mood/Affect Skin: Normal Color, Warm/Dry Progress/Results/Core Measures Results/Orders Lab Results Laboratory Tests Test 05/02/23 00:50 05/02/23 00:55 05/02/23 03:00 Range/Units White Blood Count 7.0 4.3-11.0 10^3/uL Red Blood Count 4.71 3.80-5.11 10^6/uL Hemoglobin 14.4 11.5-16.0 g/dL Hematocrit 43 35-52 % Mean Corpuscular Volume 91 80-99 fL Mean Corpuscular Hemoglobin 31 25-34 pg Mean Corpuscular Hemoglobin Concent 34 32-36 g/dL Red Cell Distribution Width 12.6 10.0-14.5 % Platelet Count 309 130-400 10^3/uL Mean Platelet Volume 9.1 9.0-12.2 fL Immature Granulocyte % (Auto) 0 % Neutrophils (%) (Auto) 38 L 42-75 % Lymphocytes (%) (Auto) 46 H 12-44 % Monocytes (%) (Auto) 12 0-12 % Eosinophils (%) (Auto) 3 0-10 % Basophils (%) (Auto) 1 0-10 % Neutrophils # (Auto) 2.7 1.8-7.8 10^3/uL Lymphocytes # (Auto) 3.2 1.0-4.0 10^3/uL Monocytes # (Auto) 0.8 0.0-1.0 10^3/uL Eosinophils # (Auto) 0.2 0.0-0.3 10^3/uL Basophils # (Auto) 0.1 0.0-0.1 10^3/uL Immature Granulocyte # (Auto) 0.0 0.0-0.1 10^3/uL Prothrombin Time 12.9 12.2-14.7 SEC INR Comment 1.0 0.8-1.4 Activated Partial Thromboplast Time 25 24-35 SEC Sodium Level 140 135-145 MMOL/L Potassium Level 3.9 3.6-5.0 MMOL/L Chloride Level 105 98-107 MMOL/L Carbon Dioxide Level 22 21-32 MMOL/L Anion Gap 13 5-14 MMOL/L Blood Urea Nitrogen 13 7-18 MG/DL Creatinine 0.74 0.60-1.30 MG/DL Estimat Glomerular Filtration Rate 101 BUN/Creatinine Ratio 18 Glucose Level 169 H 70-105 MG/DL Calcium Level 9.9 8.5-10.1 MG/DL Corrected Calcium 9.8 8.5-10.1 MG/DL Magnesium Level 1.7 1.6-2.4 MG/DL Total Bilirubin 0.3 0.1-1.0 MG/DL Aspartate Amino Transf (AST/SGOT) 18 5-34 U/L Alanine Aminotransferase (ALT/SGPT) 29 0-55 U/L Alkaline Phosphatase 75 40-136 U/L Myoglobin 46.9 10.0-92.0 NG/ML Troponin I < 0.028 < 0.028 <0.028 NG/ML Total Protein 7.3 6.4-8.2 GM/DL Albumin 4.1 3.2-4.5 GM/DL Lipase 81 H 8-78 U/L Glucometer 164 H 70-110 MG/DL My Orders Orders - SEBASTIÁN HARDEN MD Ekg Tracing (05/02/23 00:44) Cbc With Automated Diff (05/02/23 00:59) Magnesium (05/02/23 00:59) Chest 1 View, Ap/Pa Only (05/02/23 00:59) Comprehensive Metabolic Panel (05/02/23 00:59) Myoglobin Serum (05/02/23 00:59) Protime With Inr (05/02/23 00:59) Partial Thromboplastin Time (05/02/23 00:59) O2 (05/02/23 00:59) Monitor-Rhythm Ecg Trace Only (05/02/23 00:59) Ed Iv/Invasive Line Start (05/02/23 00:59) Troponin I Mary (05/02/23 00:59) Lipase (05/02/23 01:00) Ondansetron Injection (Zofran Injectio (05/02/23 01:00) Lidocaine 2% Viscous 15 Ml (Xylocaine Vi (05/02/23 01:00) Antacid Suspension (Mylanta Suspension (05/02/23 01:00) Accucheck Stat ONCE (05/02/23 01:21) Troponin I Clark (05/02/23 02:50) Acetaminophen Tablet (Acetaminophen Ta (05/02/23 02:00) Medications Given in ED Current Medications Medications Dose Ordered Sig/Stephie Route Start Time Stop Time Status Last Admin Dose Admin Acetaminophen 1,000 mg ONCE ONCE PO 05/02/23 02:00 05/02/23 02:02 DC 05/02/23 02:02 1,000 MG Al Hydrox/Mg Hydrox/Simethicone 30 ml ONCE ONCE PO 05/02/23 01:00 05/02/23 01:01 DC 05/02/23 01:09 30 ML Lidocaine HCl 15 ml ONCE ONCE PO 05/02/23 01:00 05/02/23 01:01 DC 05/02/23 01:09 15 ML Ondansetron HCl 4 mg ONCE ONCE IVP 05/02/23 01:00 05/02/23 01:01 DC 05/02/23 01:08 4 MG Vital Signs/I&O 05/02/23 05/02/23 00:42 04:01 Pulse 79 70 Resp 18 18 B/P (MAP) 166/92 (116) 130/83 Pulse Ox 96 97 O2 Delivery Room Air Room Air Blood Pressure Mean: 116 Progress Progress Note #1: Time: 01:18 Progress Note Patient was interviewed and examined. EKG was interpreted by me as unremarkable. Labs are in progress. Patient has tenderness in the left upper quadrant in the vicinity of her localized "chest pain". GI cocktail pretreated with Zofran has been ordered as a trial. We will continue cardiopulmonary work- up while administering the GI cocktail. Progress Note #2: Time: 01:57 Progress Note Patient was reassessed and feeling significantly improved. Left upper quadrant tenderness has resolved. She has minimal lingering "tightness" just above the left epigastrium. Tylenol is being administered. 2-hour troponin will be obtained for further evaluation. Plan communicated with patient who is agreeable. Labs have been evaluated and are essentially unremarkable including CBC, CMP, troponin, magnesium, coags, and mild globin. Lipase is just above the normal reference range at 81. Glucose was elevated at 169. Chest x-ray was reviewed by me and compared with prior. Radiologist's report is not yet available. No acute abnormalities were appreciated. Progress Note #3: Time: 03:54 Progress Note Two-hour serial troponin was negative. Patient was pain free on re-evaluation. See discharge instructions. Initial ECG Impression Date: May 02, 2023 Initial ECG Impression Time: 00:47 Initial ECG Rate: 70 Initial ECG Rhythm: Normal Sinus Initial ECG Intervals: Normal Initial ECG Impression: Normal Comment Normal sinus rhythm with no ST elevation or depression. No abnormal intervals or axis deviation. Diagnostic Imaging Diagonstic Imaging: Xray Plain Films/CT/US/NM/MRI: chest Comments Chest x-ray viewed by me and compared with prior. Radiologist's report not yet available. No acute abnormalities were appreciated. Departure Impression Primary Impression: Left upper quadrant pain Additional Impression: Atypical chest pain Disposition: 01 HOME, SELF-CARE Condition: Improved Departure-Patient Inst. Decision time for Depature: 03:50 Referrals: [facility] (PCP/Family) Primary Care Physician Patient Instructions: Acid Reflux and GERD in Adults (DC), Chest Pain That Is Not Caused by the Heart (DC) Add. Discharge Instructions: Increase your Pepcid (famotidine) to 20 mg twice daily. If you continue to have pain, you may take Tylenol (acetaminophen) up to 1000 mg every 6 hours as needed. You may additionally take Tums per package instruct ions for breakthrough discomfort. Avoid the following: Eating large meals, eating close to bedtime, caffeine, carbonation, citrus fruits and juices, tomato products, alcohol, tobacco, chocolate, fatty/greasy foods, spicy foods, mints, NSAID medications such as ibuprofen and naproxen, and anything else you know irritates your stomach. Follow-up with your primary care provider within the next couple weeks. Return to the ER if you have worsening symptoms despite following these instructions. All discharge instructions reviewed with patient and/or family. Voiced understanding. Scripts Famotidine (Pepcid) 20 Mg Tablet 20 MG PO BID, #60 TAB Prov: SEBASTIÁN HARDEN MD 05/02/23 Copy Copies To 1: [facility]/SEBASTIÁN VALENTE MD May 02, 2023 01:21
[2023-05-02 01:22] LABS: ALANINE AMINOTRANSFERASE 29 U/L (0-55); LIPASE 81 U/L (8-78)
[2023-05-02] MEDS ORDERED: ACETAMINOPHEN 500 MG TABLET PO ONE (02:00)
[2023-05-02] MEDS ORDERED: FAMO-119 PO (03:52)
[2023-05-02 04:01] VITALS: BP 130/83
--- NOTE | 2023-05-02 07:22 | Diagnostic Imaging Report ---
INDICATION: Chest pain. Comparison is made with prior exam of 03/16/2023. FINDINGS: The heart size, mediastinal configuration, and pulmonary vascularity are within normal limits. There is no pleural effusion, pneumothorax, or pneumonia. The osseous structures are unremarkable. IMPRESSION: No acute cardiopulmonary abnormality. Dictated by: Dictated on workstation # [id number]
== END 2023-05-02 04:02 | disposition home or self-care (01) ==
LOC: EDUNIT# 00:35 → ER 00:37
DX: R07.89 Other chest pain (principal); R10.12 Left upper quadrant pain; E11.9 Type 2 diabetes mellitus without complications; E66.9 Obesity, unspecified; Z79.4 Long term (current) use of insulin; Z68.41 Body mass index [BMI] 40.0-44.9, adult; Z28.310 Unvaccinated for COVID-19
CPT/HCPCS: 36415; 71045; 80053; 82947; 83690; 83735; 83874; 84484; 85025; 85610; 85730; 93005; 93041; 96374

== ENCOUNTER 2023-05-05 20:37 | Emergency (ER) | payer MEDICAID, MEDICARE ==
[~2023-05-05] VITALS: Ht 162 cm; Wt 104.0 kg
[~2023-05-05 20:37] MED LIST changes: +FAMO-119 PO
--- NOTE | 2023-05-05 21:12 | ED Lower Extremity ---
General Chief Complaint: Lower Extremity Stated Complaint: INJ LEFT FOOT Nursing Triage Note: PT TO FT1 PER W/C PT STATES FELL OFF CHAIR AND HIT FOOT ON CHAIR. L HEEL OF FOOT RATES PAIN9/10 Source: patient Exam Limitations: no limitations (LONDON RODRIGUEZ APRN) History of Present Illness Date Seen by Provider: May 05, 2023 Time Seen by Provider: 21:06 Initial Comments 48-year-old female presents to the ER with complaint of left heel pain. States that she hit her heel on a chair approximately 1 to 1/2 hours ago. She reports swelling to the back of her foot. (LONDON RODRIGUEZ APRN) Allergies and Home Medications Allergies Coded Allergies: dapagliflozin (Verified Allergy, Unknown, 06/26/22) duloxetine (Verified Allergy, Unknown, 06/26/22) escitalopram (Verified Allergy, Unknown, 06/26/22) paroxetine (Verified Allergy, Unknown, 06/26/22) peanut (Verified Allergy, Unknown, 06/26/22) pneumococcal vaccine (Verified Allergy, Unknown, 06/26/22) Uncoded Allergies: DRAGON FRUIT (Allergy, Unknown, 04/14/23) Patient Home Medication List Home Medication List Reviewed: Yes (LONDON RODRIGUEZ APRN) Blood Sugar Diagnostic (Onetouch Ultra Test Strips) 1 Each Strip, (Reported) Entered as Reported by: SABRA ALONSO on 03/15/23 2344 Cyclobenzaprine HCl (Cyclobenzaprine HCl) 10 Mg Tablet, 10 MG PO Q8H PRN for SPASMS Prescribed by: EDU GONZÁLES on 11/20/22 0054 Enalapril Maleate (Vasotec) 20 Mg Tablet, 20 MG PO DAILY, (Reported) Entered as Reported by: HERSON HA on 02/27/12 0939 Escitalopram Oxalate (Lexapro) 10 Mg Tablet, 1 EACH PO DAILY, (Reported) Entered as Reported by: GINNA LABOY on 07/19/13 0020 Famotidine (Pepcid) 20 Mg Tablet, 20 MG PO BID Prescribed by: SEBASTIÁN BUTLER on 05/02/23 0352 Fluticasone Propionate (Allergy Relief) 50 Mcg/Actuation [place].susp, 15.8 ML NS BID Prescribed by: PHILL DOBBINS on 9/27/22 1904 Gemfibrozil (Gemfibrozil) 600 Mg Tablet, (Reported) Entered as Reported by: SABRA ALONSO on 03/15/232343 Glipizide (Glipizide) 5 Mg Tablet, (Reported) Entered as Reported by: SABRA ALONSO on 03/15/232343 Insulin Detemir (Levemir Flexpen) 100 Unit/Ml (3 Ml) Insuln.pen, (Reported) Entered as Reported by: SABRA ALONSO on 03/15/232343 Ketorolac Tromethamine (Ketorolac Tromethamine) 10 Mg Tablet, 10 MG PO Q6H Prescribed by: EDU GONZÁLES on 12/12/22 0347 Meclizine HCl (Meclizine HCl) 25 Mg Tablet, 25 MG PO Q6H PRN for VERTIGO Prescribed by: PHILL DOBBINS on 06/26/221903 Meloxicam (Meloxicam) 15 Mg Tablet, 15 MG PO DAILY Prescribed by: EDU GONZÁLES on 03/16/23 0037 Metformin HCl (Metformin HCl) 500 Mg Tablet, (Reported) Entered as Reported by: SABRA ALONSO on 03/15/232343 Metoprolol Succinate (Metoprolol Succinate) 25 Mg Tab.er.24h, (Reported) Entered as Reported by: SABRA ALONSO on 03/15/232343 Naproxen (Naproxen) 500 Mg Tablet.dr, 500 MG PO BID Prescribed by: EDU GONZÁLES on 11/20/22 0054 Olmesartan Medoxomil (Olmesartan Medoxomil) 20 Mg Tablet, (Reported) Entered as Reported by: SABRA ALONSO on 03/15/232343 Omeprazole (Omeprazole) 20 Mg Capsule.dr, 20 MG PO DAILY Prescribed by: SEBASTIÁN BUTLER on 09/14/20 1705 Trimethoprim/Sulfamethoxazole (Bactrim Ds) 1 Ea Tablet, 1 EA PO BID Prescribed by: MARKEL GARCIA on 07/19/13 0130 Review of Systems Constitutional: see HPI (LONDON RODRIGUEZ APRN) Past Igxqnjg-Rmwjqc-Qoodgq Hx Patient Social History Tobacco Use?: No Substance use?: No Alcohol Use?: No Pt feels they are or have been: No (LONDON RODRIGUEZ APRN) Immunizations Up To Date Tetanus Booster (TDap): Unknown First/Initial COVID19 Vaccinat: NONE Second COVID19 Vaccination Nikita: NONE Third COVID19 Vaccination Date: NONE (LONDON RODRIGUEZ APRN) Past Medical History Surgery/Hospitalization HX: DM, HLD, DEPRESSION, ANXIETY, HTN, TBI, SCHIZOPHRENIA TUBAL Surgeries: Yes (TUBAL LIGATION, EAR SURGERY, ABSCESS LANCED TO LEFT LEG) Ear Surgery, Tubal Ligation Respiratory: Yes (HAS AN INHALER) Cardiac: Yes Hypertension Neurological: Yes (BRAIN INJURY AT 8 YRS OLD) Traumatic Brain Injury 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 Disorders: 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 Genitourinary: Yes Renal Failure Gastrointestinal: No Musculoskeletal: Yes Scoliosis Endocrine: Yes (IDDM; OBESITY) Diabetes, Insulin dep HEENT: No Cancer: No Psychosocial: Yes (schizoaffective disorder) Anxiety, Schizophrenia, Depression Integumentary: No Blood Disorders: No (LONDON RODRIGUEZ APRN) Family Medical History No Pertinent Family Hx (LONDON RODRIGUEZ APRN) Physical Exam Vital Signs Vital Signs - First Documented 05/05/23 20:55 Pulse 87 Resp 18 B/P (MAP) 120/82 (95) Pulse Ox 97 (NIVIA,EDU K DO) Vital Signs Capillary Refill : Less Than 3 Seconds (LONDON RODRIGUEZ APRN) Height, Weight, BMI Height: 5'4.00" Weight: 220lbs. oz. 99.244008tz; 39.00 BMI Method:Stated General Appearance: WD/WN, no apparent distress Neck: supple, normal inspection Cardiovascular: regular rate, rhythm Respiratory: lungs clear, normal breath sounds, no respiratory distress, no accessory muscle use Ankles: left ankle pain, left ankle soft tissue tenderness, left ankle swelling Feet: left foot other (Sensation intact distally, cap refill less than 2 seconds, pulses intact) Neurologic/Psychiatric: alert, normal mood/affect, oriented x 3 Skin: normal color, warm/dry (LONDON RODRIGUEZ APRN) Progress/Results/Core Measures Results/Orders Vital Signs/I&O 05/05/23 05/05/23 20:55 21:49 Pulse 87 87 Resp 18 18 B/P (MAP) 120/82 (95) 120/82 Pulse Ox 97 97 (NIVIA,EDU K DO) Blood Pressure Mean: 95 Progress Progress Note : Progress Note Patient seen and evaluated, resting in wheelchair, no acute distress. Based on exam and symptoms, x-ray of left foot ordered. 2140 x-ray reviewed. No acute osseous abnormality. Results discussed with patient. Will discharge with Wali bandage and crutches. Discharge instructions and return precautions provided. (LONDON RODRIGUEZ APRN) Diagnostic Imaging Diagonstic Imaging: Xray Plain Films/CT/US/NM/MRI: other (foot) Comments [facility], [place] NAME: JOSHUA HERRON [facility] REC#: [id number] PT STATUS: REG ER : 1975 PHYSICIAN: LONDON RODRIGUEZ APRN ADMIT DATE: 05/05/23/ER Signed Date of Exam:05/05/23 FOOT, LEFT, 3 VIEWS EXAMINATION: Left foot radiographs. EXAM DATE: 05/05/2023 9:23 PM COMPARISON: None available. HISTORY: Left foot pain. TECHNIQUE: 3 views. FINDINGS: There is no acute fracture, dislocation or destructive osseous process. The joint spaces are normal. The soft tissues are normal. IMPRESSION: No acute osseous abnormality. Dictated by: Dictated on workstation # [id number] Dict: 05/05/232124 Trans: 05/05/232127 [facility] [id number] Interpreted by: SABRA MATTSON DO Electronically signed by: SABRA MATTSON DO 05/05/232127 (LONDON RODRIGUEZ APRN) Departure Impression Primary Impression: Contusion of ankle Disposition: 01 HOME, SELF-CARE Condition: Stable Departure-Patient Inst. Decision time for Depature: 21:41 (LONDON RODRIGUEZ APRN) Referrals: [facility] (PCP/Family) Primary Care Physician Patient Instructions: Contusion (DC) Add. Discharge Instructions: Wear the Wali bandage for comfort, use the crutches as needed. Ice your foot 20 minutes at a time several times a day. Elevate your foot above the level of your heart as frequently as possible. You may take Tylenol or ibuprofen as needed for pain. Return for any new, concerning, or worsening symptoms. All discharge instructions reviewed with patient and/or family. Voiced understanding. ATTENDING PHYSICIAN NOTE: I WAS PHYSICALLY PRESENT ER PHYSICIAN, BUT I WAS NOT INVOLVED IN ANY DECISION MAKING OR ANY CARE OF THIS PATIENT AND I AM NOT COLLABORATING PHYSICIAN. (EDU GONZÁLES DO) LONDON RODRIGUEZ APRN May 05, 2023 21:12 EDU GONZÁLES DO May 06, 2023 05:47
--- NOTE | 2023-05-05 21:28 | Diagnostic Imaging Report ---
EXAMINATION: Left foot radiographs. EXAM DATE: 05/05/2023 9:23 PM COMPARISON: None available. HISTORY: Left foot pain. TECHNIQUE: 3 views. FINDINGS: There is no acute fracture, dislocation or destructive osseous process. The joint spaces are normal. The soft tissues are normal. IMPRESSION: No acute osseous abnormality. Dictated by: Dictated on workstation # [id number]
[2023-05-05 21:49] VITALS: BP 120/82
== END 2023-05-05 21:49 | disposition home or self-care (01) ==
LOC: EDUNIT# 20:37 → ER 20:39
DX: S90.02XA Contusion of left ankle, initial encounter (principal); E11.9 Type 2 diabetes mellitus without complications; E66.9 Obesity, unspecified; Z79.4 Long term (current) use of insulin; Z28.310 Unvaccinated for COVID-19; Z68.39 Body mass index [BMI] 39.0-39.9, adult; W07.XXXA Fall from chair, initial encounter
CPT/HCPCS: 73630

== ENCOUNTER 2023-05-21 20:58 | Emergency (ER) | payer MEDICAID ==
--- NOTE | 2023-05-21 21:34 | ED General ---
General Chief Complaint: Dizziness/Syncope Stated Complaint: NUMBNESS AND TINGLING IN ARMS Source of Information: Patient Exam Limitations: No Limitations History of Present Illness Date Seen by Provider: May 21, 2023 Time Seen by Provider: 21:18 Initial Comments Patient is a 48-year-old female who presents to the emergency department with a chief complaint of numbness and tingling in the bilateral upper extremities as well as a "funny feeling" in her anterior chest. She also has some left-sided posterior shoulder pain. Patient onset of symptoms approximately an hour prior to arrival. She was not exerting herself at the time. She did feel little nauseous. No shortness of breath. No diaphoresis. She tells me she has had prior cardiac work-up without any abnormalities but she cannot recall the time of her last stress test. She is a former smoker. She takes medications for hypertension and she is a diabetic. Nothing makes the pain any better or any worse. Nothing makes the "tingling" any better or any worse. She denies any repetitive movements to her upper extremities to suggest carpal tunnel syndrome may be an etiology for the "tingling" in her arms. No recent fevers, chills, productive cough. Her vitals are stable at presentation. Blood sugar is reassuring. Timing/Duration: 1 Hour Severity: Mild Associated Systoms: Chest Pain ("feel funny"), Malaise, Nausea/Vomiting (nausea without vomiting), Shortness of Air Allergies and Home Medications Allergies Coded Allergies: dapagliflozin (Verified Allergy, Unknown, 06/26/22) duloxetine (Verified Allergy, Unknown, 06/26/22) escitalopram (Verified Allergy, Unknown, 06/26/22) paroxetine (Verified Allergy, Unknown, 06/26/22) peanut (Verified Allergy, Unknown, 06/26/22) pneumococcal vaccine (Verified Allergy, Unknown, 06/26/22) Uncoded Allergies: DRAGON FRUIT (Allergy, Unknown, 04/14/23) Patient Home Medication List Home Medication List Reviewed: Yes Blood Sugar Diagnostic ([employer] Ultra Test Strips) 1 Each Strip, (Reported) Entered as Reported by: SABRA ALONSO on 03/15/23 7882 Cyclobenzaprine HCl (Cyclobenzaprine HCl) 10 Mg Tablet, 10 MG PO Q8H PRN for SPASMS Prescribed by: EDU GONZÁLES on 2/21/23 0054 Enalapril Maleate (Vasotec) 20 Mg Tablet, 20 MG PO DAILY, (Reported) Entered as Reported by: HERSON HA on 02/27/12 0939 Escitalopram Oxalate (Lexapro) 10 Mg Tablet, 1 EACH PO DAILY, (Reported) Entered as Reported by: GINNA LABOY on 07/19/13 0020 Famotidine (Pepcid) 20 Mg Tablet, 20 MG PO BID Prescribed by: SEBASTIÁN BUTLER on 05/02/23 035 Fluticasone Propionate (Allergy Relief) 50 Mcg/Actuation [place].susp, 15.8 ML NS BID Prescribed by: PHILL DOBBINS on 06/26/221903 Gemfibrozil (Gemfibrozil) 600 Mg Tablet, (Reported) Entered as Reported by: SABRA ALONSO on 03/15/232343 Glipizide (Glipizide) 5 Mg Tablet, (Reported) Entered as Reported by: SABRA ALONSO on 03/15/232343 Insulin Detemir (Levemir Flexpen) 100 Unit/Ml (3 Ml) Insuln.pen, (Reported) Entered as Reported by: SABRA ALONSO on 03/15/232343 Ketorolac Tromethamine (Ketorolac Tromethamine) 10 Mg Tablet, 10 MG PO Q6H Prescribed by: EDU GONZÁLES on 12/12/22346 Meclizine HCl (Meclizine HCl) 25 Mg Tablet, 25 MG PO Q6H PRN for VERTIGO Prescribed by: PHILL DOBBINS on 06/26/221903 Meloxicam (Meloxicam) 15 Mg Tablet, 15 MG PO DAILY Prescribed by: EDU GONZÁLES on 03/16/2336 Metformin HCl (Metformin HCl) 500 Mg Tablet, (Reported) Entered as Reported by: SABRA ALONSO on 03/15/232343 Metoprolol Succinate (Metoprolol Succinate) 25 Mg Tab.er.24h, (Reported) Entered as Reported by: SABRA ALONSO on 03/15/232343 Naproxen (Naproxen) 500 Mg Tablet.dr, 500 MG PO BID Prescribed by: EDU GONZÁLES on 11/20/2253 Olmesartan Medoxomil (Olmesartan Medoxomil) 20 Mg Tablet, (Reported) Entered as Reported by: SABRA ALONSO on 03/15/23 2344 Omeprazole (Omeprazole) 20 Mg Capsule., 20 MG PO DAILY Prescribed by: SEBASTIÁN BUTLER on 09/14/20 1705 Trimethoprim/Sulfamethoxazole (Bactrim Ds) 1 Ea Tablet, 1 EA PO BID Prescribed by: MARKEL GARCIA on 07/19/13 0130 Review of Systems Review of Systems Constitutional: see HPI EENTM: no symptoms reported Respiratory: no symptoms reported Cardiovascular: chest pain Gastrointestinal: nausea Genitourinary: no symptoms reported : No Musculoskeletal: other (left scapula discomfort) Skin: no symptoms reported Psychiatric/Neurological: Paresthesia (right upper arm and left volar forearm) All Other Systems Reviewed Negative Unless Noted: Yes Past Edtaaeh-Kbseey-Bgedzc Hx Patient Social History Smoking Status: Former Smoker Additional substance use comme: DENIES Immunizations Up To Date Tetanus Booster (TDap): Unknown First/Initial COVID19 Vaccinat: NONE Second COVID19 Vaccination Nikita: NONE Third COVID19 Vaccination Date: NONE 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: 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 Past Medical History Surgery/Hospitalization HX: DM, HLD, DEPRESSION, ANXIETY, HTN, TBI, SCHIZOPHRENIA TUBAL Surgeries: Yes (TUBAL LIGATION, EAR SURGERY, ABSCESS LANCED TO LEFT LEG) Ear Surgery, Tubal Ligation Respiratory: Yes (HAS AN INHALER) Cardiac: Yes Hypertension Neurological: Yes (BRAIN INJURY AT 8 YRS OLD) Traumatic Brain Injury 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 Disorders: No 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 oz. 99.887523ez; 39.00 BMI Method:Stated General Appearance: No Apparent Distress, WD/WN Eyes: Bilateral Eye Normal Inspection, Bilateral Eye PERRL HEENT: PERRL/EOMI Neck: Normal Inspection Respiratory: Lungs Clear, Normal Breath Sounds, No Accessory Muscle Use, No Respiratory Distress Cardiovascular: Regular Rate, Rhythm, Normal Peripheral Pulses Gastrointestinal: Normal Bowel Sounds, Non Tender, Soft Extremity: Normal Capillary Refill, Normal Inspection, Normal Range of Motion, Non Tender, No Calf Tenderness, No Pedal Edema Neurologic/Psychiatric: Alert, Oriented x3, No Motor/Sensory Deficits, Normal Mood/Affect, feeder tender II-XII Norm as Tested, Other (Negative Tinel's sign bilaterally) Skin: Normal Color, Warm/Dry Progress/Results/Core Measures Suspected Sepsis SIRS Temperature: Pulse: Respiratory Rate: Laboratory Tests 05/21/23 21:29: White Blood Count 8.9 Blood Pressure / Mean: Laboratory Tests 05/21/23 21:29: Creatinine 0.84, INR Comment 1.0, Platelet Count 316, Total Bilirubin 0.2 Results/Orders Lab Results Laboratory Tests Test 05/21/23 21:29 05/22/23 00:07 Range/Units White Blood Count 8.9 4.3-11.0 10^3/uL Red Blood Count 4.75 3.80-5.11 10^6/uL Hemoglobin 14.6 11.5-16.0 g/dL Hematocrit 43 35-52 % Mean Corpuscular Volume 91 80-99 fL Mean Corpuscular Hemoglobin 31 25-34 pg Mean Corpuscular Hemoglobin Concent 34 32-36 g/dL Red Cell Distribution Width 12.5 10.0-14.5 % Platelet Count 316 130-400 10^3/uL Mean Platelet Volume 9.2 9.0-12.2 fL Immature Granulocyte % (Auto) 1 % Neutrophils (%) (Auto) 52 42-75 % Lymphocytes (%) (Auto) 37 12-44 % Monocytes (%) (Auto) 8 0-12 % Eosinophils (%) (Auto) 2 0-10 % Basophils (%) (Auto) 0 0-10 % Neutrophils # (Auto) 4.6 1.8-7.8 10^3/uL Lymphocytes # (Auto) 3.3 1.0-4.0 10^3/uL Monocytes # (Auto) 0.7 0.0-1.0 10^3/uL Eosinophils # (Auto) 0.2 0.0-0.3 10^3/uL Basophils # (Auto) 0.0 0.0-0.1 10^3/uL Immature Granulocyte # (Auto) 0.0 0.0-0.1 10^3/uL Prothrombin Time 13.3 12.2-14.7 SEC INR Comment 1.0 0.8-1.4 Activated Partial Thromboplast Time 26 24-35 SEC Sodium Level 139 135-145 MMOL/L Potassium Level 4.1 3.6-5.0 MMOL/L Chloride Level 106 98-107 MMOL/L Carbon Dioxide Level 20 L 21-32 MMOL/L Anion Gap 13 5-14 MMOL/L Blood Urea Nitrogen 21 H 7-18 MG/DL Creatinine 0.84 0.60-1.30 MG/DL Estimat Glomerular Filtration Rate 87 BUN/Creatinine Ratio 25 Glucose Level 160 H 70-105 MG/DL Calcium Level 9.6 8.5-10.1 MG/DL Corrected Calcium 9.6 8.5-10.1 MG/DL Magnesium Level 1.6 1.6-2.4 MG/DL Total Bilirubin 0.2 0.1-1.0 MG/DL Aspartate Amino Transf (AST/SGOT) 28 5-34 U/L Alanine Aminotransferase (ALT/SGPT) 36 0-55 U/L Alkaline Phosphatase 69 40-136 U/L Troponin I < 0.028 < 0.028 <0.028 NG/ML Total Protein 6.6 6.4-8.2 GM/DL Albumin 4.0 3.2-4.5 GM/DL My Orders Orders - ERIC PASCUAL MD Cbc With Automated Diff (05/21/23 21:32) Magnesium (05/21/23 21:32) Chest 1 View, Ap/Pa Only (05/21/23 21:32) Ekg Tracing (05/21/23 21:32) Comprehensive Metabolic Panel (05/21/23 21:32) Protime With Inr (05/21/23 21:32) Partial Thromboplastin Time (05/21/23 21:32) O2 (05/21/23 21:32) Monitor-Rhythm Ecg Trace Only (05/21/23 21:32) Ed Iv/Invasive Line Start (05/21/23 21:32) Troponin I [place] (05/21/23 21:32) Aspirin Chewable Tablet (Aspirin Chewabl (05/21/23 21:45) Troponin I [place] (05/22/23 00:00) Ondansetron Injection (Zofran Injectio (05/22/23 00:15) Medications Given in ED Current Medications Medications Dose Ordered Sig/Stephie Route Start Time Stop Time Status Last Admin Dose Admin Aspirin 324 mg ONCE ONCE PO 05/21/23 21:45 05/21/23 21:46 DC 05/21/23 21:46 324 MG Ondansetron HCl 8 mg ONCE ONCE IVP 05/22/23 00:15 05/22/23 00:16 DC 05/22/23 00:15 8 MG Vital Signs/I&O 05/21/23 05/22/23 21:20 00:49 Temp 36.2 36.2 Pulse 96 87 Resp 16 16 B/P (MAP) 139/82 (101) 135/84 Pulse Ox 98 96 O2 Delivery Room Air Room Air Capillary Refill : Progress Note : Time: 00:46 Progress Note Patient seen and evaluated by me. Evaluation today includes physical exam, "chest pain work-up" to include CBC, Chem-12, magnesium, troponin x2, coag panel, EKG and single view chest x-ray. Physical exam is generally unremarkable. Clear lungs, regular heart rate. Soft, nontender abdomen, no lower extremity edema. No focal neurologic deficits. Unable to reproduce any tenderness to palpation over the anterior chest wall or left shoulder. Neurovascularly intact to the bilateral upper extremities. Differential diagnosis based on history and physical exam, acute coronary syndrome, metabolic derangement, anxiety Labs, EKG and chest x-ray independently reviewed and interpreted by me. Her CBC is completely within normal limits, chemistry pertinent for only a CO2 mildly decreased at 20 elevated glucose at 160. Normal magnesium, troponin is negative x2. Coag panel is within normal limits. EKG shows normal sinus rhythm without ectopy or ST segment change. Chest x-ray is also unremarkable for any acute consolidative infiltrate, effusion, cardiomegaly. No increased pulmonary vascular congestion. Patient is treated with aspirin 324 mg. She is also given 8 mg of Zofran for nausea. She has no deterioration in her condition throughout her stay in the emergency department. No concerning findings for acute coronary syndrome. She has normal electrolytes. She is quite anxious and has had work- ups for chest pain in the past. She has a history of traumatic brain injury and tells me that she has poor memory. Recommended supportive care at home and follow-up with her primary care physician. Return precautions provided in both verbal and written format. All questions are sought and answered. Patient is improved at discharge. ECG Initial ECG Impression Date: May 21, 2023 Initial ECG Impression Time: 21:37 Initial ECG Rate: 89 Initial ECG Rhythm: Normal Sinus Initial ECG Intervals: Normal Initial ECG Impression: Normal Diagnostic Imaging Diagonstic Imaging: Xray Plain Films/CT/US/NM/MRI: chest Comments [facility], [place] NAME: JOSHUA HERRON [facility] REC#: [id number] PT STATUS: REG ER : 1975 PHYSICIAN: ERIC PASCUAL MD ADMIT DATE: 05/21/23/ER Signed Date of Exam:05/21/23 CHEST 1 VIEW, AP/PA ONLY CHEST 1 VIEW, AP/PA ONLY INDICATION: Chest pain. COMPARISON: Chest radiograph on 05/02/2023. FINDINGS: Lungs: Low lung volume. No focal consolidation. Stable pulmonary vasculature. Pleura: No pleural effusion or pneumothorax. Heart and Mediastinum: Cardiomediastinal silhouette and great vessels of the thorax are stable. Osseous Structures and Soft Tissues: No acute osseous abnormality. Normal soft tissues. IMPRESSION: Low lung volume. No focal consolidation or melvi pulmonary edema. Dictated by: Dictated on workstation # [id number] Dict: 05/21/232206 Trans: 05/21/232206 [facility] [place] [facility] [place] [id number] Interpreted by: TONI CORONA DO Electronically signed by: TONI CORONA DO 05/21/232206 Departure Impression Primary Impression: Atypical chest pain Disposition: 01 HOME, SELF-CARE Condition: Stable Departure-Patient Inst. Decision time for Depature: 00:46 Referrals: [facility] (PCP/Family) Primary Care Physician Patient Instructions: Chest Pain That Is Not Caused by the Heart (DC) Add. Discharge Instructions: You can use a lidocaine patch over the back of your left shoulder for discomfort. Please follow packaging instructions. You can take ibuprofen 3 tablets which is 600 mg with food every 6-8 hours as needed for pain. Please follow-up with your primary care provider this week for further evaluation of your arm "tingling" and shoulder pain. If you develop any other new, concerning or emergent complaints please return to the emergency room for reevaluation. Copy Copies To 1: CINTHIA HDEZ KATHRYN M MD May 21, 2023 21:34
[2023-05-21 21:43] LABS: BASOPHILS % (AUTO) 0 % (0-10); EOSINOPHILS # (AUTO) 0.2 10^3/uL (0.0-0.3); EOSINOPHILS % (AUTO) 2 % (0-10); HEMATOCRIT 43 % (35-52); HEMOGLOBIN 14.6 g/dL (11.5-16.0); LYMPHOCYTES # (AUTO) 3.3 10^3/uL (1.0-4.0); LYMPHOCYTES % (AUTO) 37 % (12-44); MEAN CORPUSCULAR HEMOGLOBIN 31 pg (25-34); MEAN CORPUSCULAR HGB CONC 34 g/dL (32-36); MEAN CORPUSCULAR VOLUME 91 fL (80-99); MEAN PLATELET VOLUME 9.2 fL (9.0-12.2); MONOCYTES # (AUTO) 0.7 10^3/uL (0.0-1.0); MONOCYTES % (AUTO) 8 % (0-12); NEUTROPHILS # (AUTO) 4.6 10^3/uL (1.8-7.8); NEUTROPHILS % (AUTO) 52 % (42-75); PLATELET COUNT 316 10^3/uL (130-400); WHITE BLOOD COUNT 8.9 10^3/uL (4.3-11.0)
[2023-05-21] MEDS ORDERED: ASPIRIN 81 MG CHEWABLE TABLET PO ONE (21:45)
[2023-05-21 21:48] LABS: PROTHROMBIN TIME PATIENT 13.3 SEC (12.2-14.7)
[2023-05-21 21:53] LABS: ALANINE AMINOTRANSFERASE 36 U/L (0-55); ALKALINE PHOSPHATASE 69 U/L (40-136); BILIRUBIN,TOTAL 0.2 MG/DL (0.1-1.0); BUN/CREATININE RATIO 25; CALCIUM 9.6 MG/DL (8.5-10.1); CARBON DIOXIDE 20 MMOL/L (21-32); CHLORIDE 106 MMOL/L (98-107); CREATININE SERUM 0.84 MG/DL (0.60-1.30); GFR ESTIMATED 87; GLUCOSE 160 MG/DL (70-105); MAGNESIUM 1.6 MG/DL (1.6-2.4); POTASSIUM 4.1 MMOL/L (3.6-5.0); SODIUM 139 MMOL/L (135-145); TOTAL PROTEIN 6.6 GM/DL (6.4-8.2)
--- NOTE | 2023-05-21 22:09 | Diagnostic Imaging Report ---
CHEST 1 VIEW, AP/PA ONLY INDICATION: Chest pain. COMPARISON: Chest radiograph on 05/02/2023. FINDINGS: Lungs: Low lung volume. No focal consolidation. Stable pulmonary vasculature. Pleura: No pleural effusion or pneumothorax. Heart and Mediastinum: Cardiomediastinal silhouette and great vessels of the thorax are stable. Osseous Structures and Soft Tissues: No acute osseous abnormality. Normal soft tissues. IMPRESSION: Low lung volume. No focal consolidation or melvi pulmonary edema. Dictated by: Dictated on workstation # [id number]
[2023-05-22] MEDS ORDERED: ONDANSETRON INJECTION 4 MG/2 ML (SDV) IVP ONE (00:15)
[2023-05-22 00:49] VITALS: BP 135/84
== END 2023-05-22 00:54 | disposition home or self-care (01) ==
LOC: EDUNIT# 20:58 → ER 21:01
DX: R07.89 Other chest pain (principal); R11.0 Nausea; R79.81 Abnormal blood-gas level; E66.9 Obesity, unspecified; E11.9 Type 2 diabetes mellitus without complications; Z79.4 Long term (current) use of insulin; Z87.891 Personal history of nicotine dependence; Z68.39 Body mass index [BMI] 39.0-39.9, adult; Z28.310 Unvaccinated for COVID-19
CPT/HCPCS: 36415; 71045; 80053; 83735; 84484; 85025; 85610; 85730; 93005; 93041

== ENCOUNTER 2023-06-03 14:23 | Emergency (ER) | payer MEDICAID ==
[~2023-06-03] VITALS: Ht 163 cm; Wt 105.0 kg
[2023-06-03] MEDS ORDERED: CLIN-144 PO ×3 (15:17→15:19)
--- NOTE | 2023-06-03 15:19 | ED Integumentary General ---
General Chief Complaint: Skin/Wound Problems Stated Complaint: INFECTED NOSE PIERCING LT SIDE Nursing Triage Note: PT AMB TO ED BY POV WITH C/O L SIDED NOSE PIERCING IRRITATION. PT REPORTS SHE HAD HER NOSE PIERCED 2 DAYS AGO AND NOTICED REDNESS AND SWELLING AROUND PIERCING SITE TODAY. DENIES FEVER. PT REPORTS SHE HAS BEEN CLEANING THE PIERCING WITH SALT WATER. Source: patient Exam Limitations: no limitations History of Present Illness Date Seen by Provider: Jun 03, 2023 Time Seen by Provider: 15:15 Initial Comments Patient is a 48-year-old female presents ED with infected left nose ring. She states 2 days ago she had a nose ring placed in left naris. She noted swelling and purulent drainage from around the nose ring today. She reports rounding swelling. Tenderness to palpate. Denies fever, chills, nausea, vomiting, diarrhea, headache, dizziness. Allergies and Home Medications Allergies Coded Allergies: dapagliflozin (Verified Allergy, Unknown, 06/26/22) duloxetine (Verified Allergy, Unknown, 06/26/22) escitalopram (Verified Allergy, Unknown, 06/26/22) paroxetine (Verified Allergy, Unknown, 06/26/22) peanut (Verified Allergy, Unknown, 06/26/22) pneumococcal vaccine (Verified Allergy, Unknown, 06/26/22) Uncoded Allergies: DRAGON FRUIT (Allergy, Unknown, 04/14/23) Patient Home Medication List Home Medication List Reviewed: Yes Blood Sugar Diagnostic ([employer] Ultra Test Strips) 1 Each Strip, (Reported) Entered as Reported by: SABRA ALONSO on 03/15/23 2344 Clindamycin HCl (Clindamycin HCl) 300 Mg Capsule, 300 MG PO QID Prescribed by: STU MARTINS on 06/03/23 1519 Cyclobenzaprine HCl (Cyclobenzaprine HCl) 10 Mg Tablet, 10 MG PO Q8H PRN for SPASMS Prescribed by: EDU GONZÁLES on 11/20/22 0054 Enalapril Maleate (Vasotec) 20 Mg Tablet, 20 MG PO DAILY, (Reported) Entered as Reported by: HERSON HA on 02/27/12 0939 Escitalopram Oxalate (Lexapro) 10 Mg Tablet, 1 EACH PO DAILY, (Reported) Entered as Reported by: GINNA LABOY on 07/19/13 0020 Famotidine (Pepcid) 20 Mg Tablet, 20 MG PO BID Prescribed by: SEBASTIÁN BUTLER on 05/02/23 035 Fluticasone Propionate (Allergy Relief) 50 Mcg/Actuation [place].susp, 15.8 ML NS BID Prescribed by: PHILL DOBBINS on 06/26/221903 Gemfibrozil (Gemfibrozil) 600 Mg Tablet, (Reported) Entered as Reported by: SABRA ALONSO on 03/15/232343 Glipizide (Glipizide) 5 Mg Tablet, (Reported) Entered as Reported by: SABRA ALONSO on 03/15/232343 Insulin Detemir (Levemir Flexpen) 100 Unit/Ml (3 Ml) Insuln.pen, (Reported) Entered as Reported by: SABRA ALONSO on 03/15/232343 Ketorolac Tromethamine (Ketorolac Tromethamine) 10 Mg Tablet, 10 MG PO Q6H Prescribed by: EDU GONZÁLES on 12/12/22 034 Meclizine HCl (Meclizine HCl) 25 Mg Tablet, 25 MG PO Q6H PRN for VERTIGO Prescribed by: PHILL DOBBINS on 06/26/221903 Meloxicam (Meloxicam) 15 Mg Tablet, 15 MG PO DAILY Prescribed by: EDU GONZÁLES on 03/16/23 003 Metformin HCl (Metformin HCl) 500 Mg Tablet, (Reported) Entered as Reported by: SABRA ALONSO on 03/15/232343 Metoprolol Succinate (Metoprolol Succinate) 25 Mg Tab.er.24h, (Reported) Entered as Reported by: SABRA ALONSO on 03/15/232343 Naproxen (Naproxen) 500 Mg Tablet.dr, 500 MG PO BID Prescribed by: EDU GONZÁLES on 11/20/22 0054 Olmesartan Medoxomil (Olmesartan Medoxomil) 20 Mg Tablet, (Reported) Entered as Reported by: SABRA ALONSO on 03/15/232343 Omeprazole (Omeprazole) 20 Mg Capsule.dr, 20 MG PO DAILY Prescribed by: SEBASTIÁN BUTLER on 09/14/20 170 Trimethoprim/Sulfamethoxazole (Bactrim Ds) 1 Ea Tablet, 1 EA PO BID Prescribed by: MARKEL GARCIA on 07/19/13 0130 Discontinued Medications Clindamycin HCl (Clindamycin HCl) 300 Mg Capsule, 300 MG PO QID Prescribed by: STU MARTINS on 06/03/23 1518 Review of Systems Review of Systems Constitutional: No chills, No diaphoresis, No malaise EENTM: No ear pain, No double vision Respiratory: No cough, No dyspnea on exertion Cardiovascular: No chest pain Gastrointestinal: No abdominal pain, No nausea Genitourinary: No decreased output, No discharge Musculoskeletal: No back pain, No joint pain Skin: change in color, other (Swelling and redness) All Other Systems Reviewed Negative Unless Noted: Yes Past Rjcxeut-Dpognu-Kuegwx Hx Patient Social History Tobacco Use?: No Smoking Status: Former Smoker Use of E-Cig and/or Vaping dev: No Substance use?: No Alcohol Use?: No Pt feels they are or have been: No Immunizations Up To Date Tetanus Booster (TDap): Unknown First/Initial COVID19 Vaccinat: NONE Second COVID19 Vaccination Nikita: NONE Third COVID19 Vaccination Date: NONE Past Medical History Surgery/Hospitalization HX: DM, HLD, DEPRESSION, ANXIETY, HTN, TBI, SCHIZOPHRENIA TUBAL Surgeries: Yes (TUBAL LIGATION, EAR SURGERY, ABSCESS LANCED TO LEFT LEG) Ear Surgery, Tubal Ligation Respiratory: Yes (HAS AN INHALER) Cardiac: Yes Hypertension Neurological: Yes (BRAIN INJURY AT 8 YRS OLD) Traumatic Brain Injury 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 Disorders: No 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 Genitourinary: Yes Renal Failure Gastrointestinal: No Musculoskeletal: Yes Scoliosis Endocrine: Yes (IDDM; OBESITY) Diabetes, Insulin dep HEENT: No Cancer: No Psychosocial: Yes (schizoaffective disorder) Anxiety, Schizophrenia, Depression Integumentary: No Blood Disorders: No Family Medical History No Pertinent Family Hx Physical Exam Vital Signs Vital Signs - First Documented 06/03/23 14:35 Temp 36.7 Pulse 94 Resp 16 B/P (MAP) 138/84 (102) Pulse Ox 97 O2 Delivery Room Air Capillary Refill : Less Than 3 Seconds General Appearance: WD/WN, no apparent distress HEENT: PERRL/EOMI, normal ENT inspection, TMs normal, pharynx normal Neck: non-tender, full range of motion, supple Cardiovascular: regular rate, rhythm, no edema, no gallop, no JVD Respiratory: chest non-tender, lungs clear, normal breath sounds, no respiratory distress, no accessory muscle use Gastrointestinal: normal bowel sounds, non tender, soft, no organomegaly Back: normal inspection, no CVA tenderness Extremities: normal range of motion, non-tender, normal inspection, no pedal edema 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 No active drainage. Tenderness to palpate) Progress/Results/Core Measures Results/Orders Vital Signs/I&O 06/03/23 06/03/23 14:35 15:30 Temp 36.7 Pulse 94 89 Resp 16 16 B/P (MAP) 138/84 (102) 142/78 Pulse Ox 97 98 O2 Delivery Room Air Room Air Blood Pressure Mean: 102 Departure Communication (PCP) Patient appears to have infection of her left naris. Recently had a nose piercing. Due to the redness and swelling remove the piercing. Denies history of MRSA. We we will place patient on clindamycin. Topical Neosporin twice a day. Allow the area to heal before placing a another piercing. She does not appear toxic. No active drainage. She reports some purulent drainage today. Impression Primary Impression: Infection of nose Disposition: 01 HOME, SELF-CARE Condition: Stable Departure-Patient Inst. Decision time for Depature: 15:16 Referrals: JOSHUA ALAN APRN (PCP/Family) Primary Care Physician Patient Instructions: Cellulitis (Skin Infection), Adult (DC) Add. Discharge Instructions: Recommend topical Neosporin twice a day. Keep the area clean. Take clindamycin as prescribed. Avoid any foreign body. All discharge instructions reviewed with patient and/or family. Voiced understanding. Scripts Clindamycin HCl (Clindamycin HCl) 300 Mg Capsule 300 MG PO QID for 7 Days, #28 CAP Prov: NIKKI HA 06/03/23 NIKKI HA Jun 03, 2023 15:19
[2023-06-03 15:30] VITALS: BP 142/78
== END 2023-06-03 15:30 | disposition home or self-care (01) ==
LOC: EDUNIT# 14:23 → ER 14:26
DX: J32.9 Chronic sinusitis, unspecified (principal); E11.9 Type 2 diabetes mellitus without complications; E66.9 Obesity, unspecified; Z68.39 Body mass index [BMI] 39.0-39.9, adult; Z79.4 Long term (current) use of insulin; Z87.891 Personal history of nicotine dependence; Z28.310 Unvaccinated for COVID-19
CPT/HCPCS: 99281

== ENCOUNTER 2023-09-01 02:26 | Emergency (ER) | payer MEDICAID ==
[~2023-09-01] VITALS: Ht 165.1 cm; Wt 106.6 kg
[~2023-09-01 02:26] MED LIST changes: +CLIN-144 PO; -GLIP5TAB13; +GLIP5TAB23; -MECL-149 PO; +MECL-291 PO
--- NOTE | 2023-09-01 02:57 | ED Chest Pain ---
General Chief Complaint: Chest Pain Stated Complaint: CHEST TIGHTNESS Nursing Triage Note: PT TO RM [facility] FROM HOME W C/O CHEST TIGHTNESS, BUE/FACIAL TINGLING, AND HEART PALPITATIONS SX SATURDAY. PT A&OX4. EMS ADMIN 324 ASA EN ROUTE TO ED. PT REPORTS TAKING HYDROXYZINE AND TRYING BREATHING EXERCISES TONIGHT. Source: patient Exam Limitations: no limitations History of Present Illness Date Seen by Provider: Sep 01, 2023 Time Seen by Provider: 02:57 Initial Comments Patient is a 48-year-old female who presents to the emergency room with a chief complaint of chest tightness intermittently over the last 1 to 3 days. She states that she started feeling some palpitations as she was taking deep breaths trying to do her anxiety exercises developed some tingling in both arms. Tingling across her right forehead down the left side of her face. She states that it is uncomfortable to take a deep breath. Denies any productive cough, fevers, chills, congestion. No nausea. No diaphoresis. History of diabetes and hypertension. History of traumatic brain injury, has difficulty recalling her medical history. Is not a smoker. Quit a few years ago. Lives alone. She states the chest tightness/discomfort is not precipitated by activity. It is "random". Has had 3 stress tests in the past but cannot recall when the last one was. 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: No Associated Symptoms: denies symptoms Allergies and Home Medications Allergies Coded Allergies: dapagliflozin (Verified Allergy, Unknown, 06/26/22) duloxetine (Verified Allergy, Unknown, 06/26/22) escitalopram (Verified Allergy, Unknown, 06/26/22) paroxetine (Verified Allergy, Unknown, 06/26/22) peanut (Verified Allergy, Unknown, 06/26/22) pneumococcal vaccine (Verified Allergy, Unknown, 06/26/22) Uncoded Allergies: DRAGON FRUIT (Allergy, Unknown, 04/14/23) Patient Home Medication List Home Medication List Reviewed: Yes Blood Sugar Diagnostic ([email or web address] Ultra Test Strips) 1 Each Strip, (Reported) Entered as Reported by: SABRA ALONSO on 03/15/23 4432 Clindamycin HCl (Clindamycin HCl) 300 Mg Capsule, 300 MG PO QID Prescribed by: STU MARTINS on 06/03/23 1519 Cyclobenzaprine HCl (Cyclobenzaprine HCl) 10 Mg Tablet, 10 MG PO Q8H PRN for SPASMS Prescribed by: EDU GONZÁLES on 11/20/22 0054 Enalapril Maleate (Vasotec) 20 Mg Tablet, 20 MG PO DAILY, (Reported) Entered as Reported by: HERSON HA on 02/27/12 0939 Escitalopram Oxalate (Lexapro) 10 Mg Tablet, 1 EACH PO DAILY, (Reported) Entered as Reported by: GINNA LABOY on 07/19/13 0020 Famotidine (Pepcid) 20 Mg Tablet, 20 MG PO BID Prescribed by: SEBASTIÁN BUTLER on 05/02/23 0352 Fluticasone Propionate (Allergy Relief) 50 Mcg/Actuation Sidman.susp, 15.8 ML NS BID Prescribed by: PHILL DOBBINS on 06/26/221903 Gemfibrozil (Gemfibrozil) 600 Mg Tablet, (Reported) Entered as Reported by: SABRA ALONSO on 03/15/232343 Glipizide (Glipizide) 5 Mg Tablet, (Reported) Entered as Reported by: SABRA ALONSO on 03/15/232343 Insulin Detemir (Levemir Flexpen) 100 Unit/Ml (3 Ml) Insuln.pen, (Reported) Entered as Reported by: SABRA ALONSO on 03/15/232343 Ketorolac Tromethamine (Ketorolac Tromethamine) 10 Mg Tablet, 10 MG PO Q6H Prescribed by: EDU GONZÁLES on 12/12/22 0347 Meclizine HCl (Meclizine HCl) 25 Mg Tablet, 25 MG PO Q6H PRN for VERTIGO Prescribed by: PHILL DOBBINS on 06/26/221903 Meloxicam (Meloxicam) 15 Mg Tablet, 15 MG PO DAILY Prescribed by: EDU GONZÁLES on 03/16/23 0037 Metformin HCl (Metformin HCl) 500 Mg Tablet, (Reported) Entered as Reported by: SABRA ALONSO on 03/15/232343 Metoprolol Succinate (Metoprolol Succinate) 25 Mg Tab.er.24h, (Reported) Entered as Reported by: SABRA ALONSO on 03/15/23 2344 Naproxen (Naproxen) 500 Mg Tablet.dr, 500 MG PO BID Prescribed by: EDU GONZÁLES on 11/20/22 0054 Olmesartan Medoxomil (Olmesartan Medoxomil) 20 Mg Tablet, (Reported) Entered as Reported by: SABRA ALONSO on 03/15/23 2344 Omeprazole (Omeprazole) 20 Mg Capsule.dr, 20 MG PO DAILY Prescribed by: SEBASTIÁN BUTLER on 09/14/20 1705 Trimethoprim/Sulfamethoxazole (Bactrim Ds) 1 Ea Tablet, 1 EA PO BID Prescribed by: MARKEL GARCIA on 07/19/13 0130 Review of Systems Review of Systems Constitutional: see HPI EENTM: No Symptoms Reported Respiratory: Shortness of Air Cardiovascular: Chest Pain Gastrointestinal: No Symptoms Reported Genitourinary: No Symptoms Reported Musculoskeletal: no symptoms reported Skin: no symptoms reported Psychiatric/Neurological: Paresthesia Past Awbcire-Obbxqt-Enihft Hx Patient Social History Tobacco Use?: No Use of E-Cig and/or Vaping dev: No Substance use?: No Alcohol Use?: No Immunizations Up To Date Tetanus Booster (TDap): Unknown First/Initial COVID19 Vaccinat: NONE Second COVID19 Vaccination Nikita: NONE Third COVID19 Vaccination Date: NONE Past Medical History Surgery/Hospitalization HX: T2DM, HLD, DEPRESSION, ANXIETY, HTN, TBI, SCHIZOPHRENIA TUBAL Surgeries: Yes (TUBAL LIGATION, EAR SURGERY, ABSCESS LANCED TO LEFT LEG) Ear Surgery, Tubal Ligation Respiratory: Yes (HAS AN INHALER) Cardiac: Yes Hypertension Neurological: Yes (BRAIN INJURY AT 8 YRS OLD) Traumatic Brain Injury 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 Disorders: No CLINICAL EDITOR History: Tubal Ligation Genitourinary: Yes Renal Failure Gastrointestinal: No Musculoskeletal: Yes Scoliosis Endocrine: Yes (IDDM; OBESITY) Diabetes, Insulin dep HEENT: No Cancer: No Psychosocial: Yes (schizoaffective disorder) Anxiety, Schizophrenia, Depression Integumentary: No Blood Disorders: No Family Medical History No Pertinent Family Hx Physical Exam Vital Signs Vital Signs - First Documented 09/01/23 02:27 Temp 36.6 Pulse 86 Resp 20 B/P (MAP) 139/71 (93) Pulse Ox 96 O2 Delivery Room Air Capillary Refill : Less Than 3 Seconds Height, Weight, BMI Height: 5'4.00" Weight: 220lbs. oz. 99.508299hy; 39.00 BMI Method:Stated General Appearance: No Apparent Distress, WD/WN, Obese HEENT: PERRL/EOMI Neck: Normal Inspection Respiratory: Lungs Clear, Normal Breath Sounds, No Accessory Muscle Use, No Respiratory Distress, Other (tenderness to palpation mid sternum) Cardiovascular: Regular Rate, Rhythm, Normal Peripheral Pulses Gastrointestinal: Non Tender, Soft Extremity: Normal Capillary Refill, Normal Inspection, No Calf Tenderness Neurologic/Psychiatric: Alert, Oriented x3, No Motor/Sensory Deficits, Normal Mood/Affect, Other (flat affect) Skin: Normal Color, Warm/Dry Progress/Results/Core Measures Results/Orders Lab Results Laboratory Tests Test 09/01/23 02:36 Range/Units White Blood Count 8.7 4.3-11.0 10^3/uL Red Blood Count 4.72 3.80-5.11 10^6/uL Hemoglobin 14.6 11.5-16.0 g/dL Hematocrit 44 35-52 % Mean Corpuscular Volume 92 80-99 fL Mean Corpuscular Hemoglobin 31 25-34 pg Mean Corpuscular Hemoglobin Concent 34 32-36 g/dL Red Cell Distribution Width 12.4 10.0-14.5 % Platelet Count 289 130-400 10^3/uL Mean Platelet Volume 9.6 9.0-12.2 fL Immature Granulocyte % (Auto) 0 % Neutrophils (%) (Auto) 47 42-75 % Lymphocytes (%) (Auto) 39 12-44 % Monocytes (%) (Auto) 9 0-12 % Eosinophils (%) (Auto) 5 0-10 % Basophils (%) (Auto) 1 0-10 % Neutrophils # (Auto) 4.1 1.8-7.8 10^3/uL Lymphocytes # (Auto) 3.4 1.0-4.0 10^3/uL Monocytes # (Auto) 0.8 0.0-1.0 10^3/uL Eosinophils # (Auto) 0.5 H 0.0-0.3 10^3/uL Basophils # (Auto) 0.1 0.0-0.1 10^3/uL Immature Granulocyte # (Auto) 0.0 0.0-0.1 10^3/uL Sodium Level 139 135-145 MMOL/L Potassium Level 3.9 3.6-5.0 MMOL/L Chloride Level 106 98-107 MMOL/L Carbon Dioxide Level 20 L 21-32 MMOL/L Anion Gap 13 5-14 MMOL/L Blood Urea Nitrogen 20 H 7-18 MG/DL Creatinine 0.71 0.60-1.30 MG/DL Estimat Glomerular Filtration Rate 106 BUN/Creatinine Ratio 28 Glucose Level 175 H 70-105 MG/DL Calcium Level 10.1 8.5-10.1 MG/DL Troponin I < 0.028 <0.028 NG/ML My Orders Orders - ERIC PASCUAL MD Ekg Tracing (09/01/23 02:29) Cbc And Automated Diff (09/01/23 03:06) Basic Metabolic Panel (09/01/23 03:06) Troponin I Mary (09/01/23 03:06) Chest 1 View, Ap/Pa Only (09/01/23 03:06) Ketorolac Injection (Ketorolac Injection (09/01/23 04:00) Vital Signs/I&O 09/01/23 02:27 Temp 36.6 Pulse 86 Resp 20 B/P (MAP) 139/71 (93) Pulse Ox 96 O2 Delivery Room Air Blood Pressure Mean: 93 Progress Progress Note : Time: 04:02 Progress Note Patient seen and evaluated by me, evaluation today includes history and physical exam with CBC, basic metabolic panel, serum troponin, single view chest x-ray and EKG. Patient physical exam is remarkable for tenderness to palpation over the anterior chest wall. No crepitance/subcutaneous emphysema. Heart is regular, lungs are clear. Abdomen is soft and benign. No lower extremity edema or calf tenderness. Vital signs are stable. Patient is afebrile, room air oxygen saturations at 96%. Differential diagnosis includes costochondritis, anxiety, ACS Patient is treated in the emergency department with 15 mg of IV Toradol. Labs independently reviewed and interpreted by me. Her CBC is all within normal limits, basic metabolic panel is all within normal limits, her serum troponin is negative. Single view chest x-ray shows no evidence of infiltrate, effusion/pneumothorax. Her EKG is normal sinus rhythm rate of 86, no ST segment elevation or depression or ectopy is noted. Patient has had multiple visits to the emergency department for chest pain. Her last stress test was in March 2022, 18 months ago. No indications at that time for cardiac catheterization. She is a diabetic, obese also with a history of hypertension. Her heart score would be a 3. 0.9 to 1.7% risk of adverse cardiac event. Single troponin is adequate for cardiac rule out. Patient is advised to follow-up with her primary care physician. Return precautions provided both verbal and written format. No concerning findings at this time for ACS/NSTEMI. Recommended monitoring of her blood sugars, continuing daily medications as prescribed. NSAIDs for chest wall discomfort. All questions were sought and answered. Patient is improved at discharge. Initial ECG Impression Date: Sep 01, 2023 Initial ECG Impression Time: 02:39 Initial ECG Rate: 86 Initial ECG Rhythm: Normal Sinus Initial ECG Intervals: Normal Initial ECG Impression: Normal Diagnostic Imaging Diagonstic Imaging: Xray Plain Films/CT/US/NM/MRI: chest Comments Chest x-ray independently reviewed and interpreted by armando shabazz Departure Impression Primary Impression: Chest pain Qualified Codes: R07.9 - Chest pain, unspecified Disposition: 01 HOME, SELF-CARE Condition: Stable Departure-Patient Inst. Decision time for Depature: 04:07 Referrals: JOSHUA ALAN APRN (PCP/Family) Primary Care Physician Patient Instructions: Chest Pain That Is Not Caused by the Heart (DC) Add. Discharge Instructions: Continue your daily medications as prescribed. Monitor your blood sugar daily. Please call and follow-up with your primary care provider next week. Return to the emergency department for any new, concerning or emergent complaints. Copy Copies To 1: CINTHIA HDEZ KATHRYN M MD Sep 01, 2023 02:57
[2023-09-01 03:12] LABS: BASOPHILS # (AUTO) 0.1 10^3/uL (0.0-0.1); BASOPHILS % (AUTO) 1 % (0-10); EOSINOPHILS # (AUTO) 0.5 10^3/uL (0.0-0.3); EOSINOPHILS % (AUTO) 5 % (0-10); HEMATOCRIT 44 % (35-52); HEMOGLOBIN 14.6 g/dL (11.5-16.0); LYMPHOCYTES # (AUTO) 3.4 10^3/uL (1.0-4.0); LYMPHOCYTES % (AUTO) 39 % (12-44); MEAN CORPUSCULAR HEMOGLOBIN 31 pg (25-34); MEAN CORPUSCULAR HGB CONC 34 g/dL (32-36); MEAN CORPUSCULAR VOLUME 92 fL (80-99); MEAN PLATELET VOLUME 9.6 fL (9.0-12.2); MONOCYTES # (AUTO) 0.8 10^3/uL (0.0-1.0); MONOCYTES % (AUTO) 9 % (0-12); NEUTROPHILS # (AUTO) 4.1 10^3/uL (1.8-7.8); NEUTROPHILS % (AUTO) 47 % (42-75); PLATELET COUNT 289 10^3/uL (130-400); WHITE BLOOD COUNT 8.7 10^3/uL (4.3-11.0)
[2023-09-01 03:28] LABS: CHLORIDE 106 MMOL/L (98-107); POTASSIUM 3.9 MMOL/L (3.6-5.0); SODIUM 139 MMOL/L (135-145)
[2023-09-01 03:29] LABS: CALCIUM 10.1 MG/DL (8.5-10.1)
[2023-09-01 03:30] LABS: GLUCOSE 175 MG/DL (70-105)
[2023-09-01 03:31] LABS: CARBON DIOXIDE 20 MMOL/L (21-32)
[2023-09-01 03:34] LABS: CREATININE SERUM 0.71 MG/DL (0.60-1.30); GFR ESTIMATED 106
[2023-09-01 03:35] LABS: BUN/CREATININE RATIO 28
[2023-09-01] MEDS ORDERED: KETOROLAC INJ 15 MG/ML VIAL IVP ONE (04:00)
[2023-09-01 04:50] VITALS: BP 112/75
--- NOTE | 2023-09-01 07:41 | Diagnostic Imaging Report ---
EXAMINATION: Chest 1 view HISTORY: Chest pain. COMPARISON: 06/25/2023. FINDINGS: The lung volumes are normal. No focal consolidation is seen. No large pleural effusion or pneumothorax is seen. The cardiomediastinal silhouette is normal in size and contour. No acute osseous abnormality is seen. IMPRESSION: 1. No acute pleuroparenchymal process. Dictated by: Dictated on workstation # [id number]
== END 2023-09-01 04:50 | disposition home or self-care (01) ==
LOC: EDUNIT# 02:26 → ER 02:28
DX: R07.89 Other chest pain (principal); E11.9 Type 2 diabetes mellitus without complications; E66.9 Obesity, unspecified; Z68.39 Body mass index [BMI] 39.0-39.9, adult; Z79.4 Long term (current) use of insulin
CPT/HCPCS: 36415; 71045; 80048; 84484; 85025; 93005